=== PATIENT | female | born 1960 | race Caucasian/White ===

== ENCOUNTER 2018-02-28 14:37 | Outpatient (REF) | payer BC, SELFPAY ==
[2018-03-03 10:55] LABS: Hepatitis C Ab w Rflx HCV PCR Negative (NEGAT)
== END 2018-02-28 14:57 ==
LOC: NCHCN 14:37
PROVIDERS: Visit Provider Family Medicine
DX: Z11.59 Encounter for screening for other viral diseases (principal)
CPT/HCPCS: 86803

== ENCOUNTER 2018-06-02 12:45 | Outpatient (REF) | payer BC, SELFPAY ==
--- NOTE | 2018-06-02 08:30 | PAPFT_PTH ---
PATIENT: Linda Noble LOC: [facility] U#:[id number] AGE/SX: 58/F ROOM: RE06/02/[address]: ROBERTO Figueroa : 1960 BED: DIS: 06/02/2018 SPEC #: [id number] RECD: 06/02/18 13:07 STATUS: MARY REDaniele #: [id number] CHELSEA: 06/02/18 08:[address]: Malu Dias [facility] Cytology RECD BY: Malina Israel ENTERED: 06/02/18 13:07 SP TYPE: PAPFT OTHR DR: Myesha Barnett Tissues: 1 - CX/ENDOCX FOR PAP SMEARS Procedures: PAP THIN PREP/UVM Screening HPV DNA PROBE Comments: [id number]
== END 2018-06-02 13:05 ==
LOC: LBN 12:45
PROVIDERS: Visit Provider Nurse Practitioner Family
DX: Z12.4 Encounter for screening for malignant neoplasm of cervix (principal); Z11.51 Encounter for screening for human papillomavirus (HPV)
CPT/HCPCS: 88142; 87624

== ENCOUNTER 2018-06-09 00:38 | Outpatient (CLI) | payer BC, SELFPAY ==
--- NOTE | 2018-06-09 15:30 | DI.MAMMO_ITS ---
SYMPTOM/DIAGNOSIS: SCREENING, Z12.31 MAMMOGRAMS: Mammograms were interpreted according to the usual protocol including computer analysis with CAD system, tomosynthesis and C view imaging. Comparison is made with prior examinations. Breast density, Category B. No suspicious masses or microcalcifications are seen. Stable nodules are seen in the retroareolar region of the right breast. Skin and axilla are unremarkable. IMPRESSION: No evidence for malignancy. Yearly mammography is recommended. Category 1. MQSA ASSESSMENT OF FINDINGS: Negative. Category 1. Patient will receive a letter notifying them of these results. BI-RADS category B. There are scattered areas of fibroglandular density.
== END 2018-06-09 00:58 ==
PROVIDERS: Visit Provider Nurse Practitioner Family
DX: Z12.31 Encounter for screening mammogram for malignant neoplasm of breast (principal)
CPT/HCPCS: 77063; 77067

== ENCOUNTER 2019-05-11 09:05 | Outpatient (REF) | payer BC, SELFPAY ==
[2019-05-11 13:14] LABS: Hemoglobin A1C 7.3 % (3.8-5.6)
[2019-05-11 13:50] LABS: ALT 41 U/L (14-59); AST 19 U/L (15-37); Albumin 3.7 g/dL (3.4-5.0); Alkaline Phosphatase 91 U/L (46-116); Anion Gap 11.6 mmol/L (3-11); BUN 16 mg/dL (7-18); Bilirubin, Total 0.4 mg/dL (0.2-1.0); CO2 26.4 mmol/L (21.0-32.0); CREATININE 0.72 mg/dL (0.55-1.02); Calculated LDL 120 mg/dL; Chloride 105 mmol/L (98-107); Cholesterol 221 mg/dL (<200); Glucose 142 mg/dL (74-106); HDL Cholesterol 49 mg/dL (40-60); Potassium 4.6 mmol/L (3.5-5.1); Sodium 143 mmol/L (136-145); Total Protein 7.1 g/dL (6.4-8.2); Triglyceride 262 mg/dL (<150)
== END 2019-05-11 09:25 ==
LOC: NCHCN 09:05
PROVIDERS: Visit Provider Family Medicine
DX: Z00.00 Encounter for general adult medical examination without abnormal findings (principal); E11.9 Type 2 diabetes mellitus without complications; E78.5 Hyperlipidemia, unspecified
CPT/HCPCS: 80053; 80061; 83036

== ENCOUNTER 2019-06-10 08:41 | Outpatient (REF) | payer BC, SELFPAY ==
[2019-06-11 11:59] LABS: Campylobacter PCR Negative (Negative); Salmonella PCR Negative (Negative); Shiga Toxin PCR Negative (Negative); Shigella/Enteroinvasive Ecoli Negative (Negative)
== END 2019-06-10 09:01 ==
LOC: NCHCN 08:41
PROVIDERS: Visit Provider Specialist/Technologist Athletic Trainer
DX: K52.1 Toxic gastroenteritis and colitis (principal)
CPT/HCPCS: 87329; 87505; 83630; 87324

== ENCOUNTER 2019-11-27 15:00 | Outpatient (REF) | payer BC, SELFPAY ==
[2019-11-29 19:02] LABS: SARS-CoV-2 RNA Undetected (Undetected); SARS-CoV-2 Specimen Source Nasopharynx
== END 2019-11-27 15:20 ==
LOC: NCHCN 15:00
PROVIDERS: Visit Provider Nurse Practitioner Family
DX: Z11.59 Encounter for screening for other viral diseases (principal)
CPT/HCPCS: U0003

== ENCOUNTER 2020-03-14 01:29 | Outpatient (CLI) | payer BC, SELFPAY ==
--- NOTE | 2020-03-14 16:20 | DI.MAMMO_ITS ---
EXAM: MAMMO SCREENING CLINICAL HISTORY: screening TECHNIQUE: Mammograms were interpreted according to the usual protocol including computer analysis w [employer] CAD system, tomosynthesis and C-view imaging. COMPARISON: 2011 through 2018 FINDINGS: The breasts are composed of scattered fibroglandular densities, Breast Density category B. No suspicious masses or suspicious microcalcifications are seen. No skin thickening or abnormal axillary lymph nodes are seen. There has been no significant change from prior exams. IMPRESSION: BI-RADS Category 1, Negative mammogram Yearly screening mammography is recommended. Breast Density - Category B, scattered fibroglandular densities. A negative radiographic report should not delay biopsy if a dominant or clinically suspicious mass is present. Up to ten percent of cancers are not identified on mammography. A negative report may reinforce clinical impression. Adenosis and dense breasts may obscure an underlying neoplasm. False positive reports average 6 to 10%. Patient will receive a letter notifying them of these results.
== END 2020-03-14 01:49 ==
PROVIDERS: PCP Family Medicine; Visit Provider Nurse Practitioner Family
DX: Z12.31 Encounter for screening mammogram for malignant neoplasm of breast (principal)
CPT/HCPCS: 77063; 77067

== ENCOUNTER 2020-08-09 20:56 | Outpatient (REF) | payer BC, SELFPAY ==
[2020-08-09 20:46] LABS: Abs Immature Grans 0.05 10^3/uL (0.0-0.06); Absolute Basophil Count 0.08 10^3/uL (0.0-0.2); Absolute Eosinophil Count 0.37 10^3/uL (0.0-0.7); Absolute Lymphocyte Count 3.88 10^3/uL (1.2-3.4); Absolute Neutrophil Count 5.29 10^3/uL (1.2-6.7); Basophils % 0.8; Eosinophils % 3.6; Immature Grans % 0.5; Lymphocytes % 38.2; MCH 29.3 pg (27.0-33.0); MCHC 32.5 % (32.0-36.0); MCV 90.3 fL (80-95); Monocytes % 4.9; Nucleated RBC 0 %; Platelet Count 323 10^3/uL (130-400); RBC 4.43 10^6/uL (3.93-5.22); RDW 12.9 % (11.7-14.6); RDW-SD 42.4 fL; WBC 10.17 10^3/uL (4.4-10.8)
[2020-08-09 21:08] LABS: ALT 31 U/L (14-59); AST 17 U/L (15-37); Alkaline Phosphatase 82 U/L (46-116); Anion Gap 9.7 mmol/L (3-11); BUN 19 mg/dL (7-18); Bilirubin, Total 0.5 mg/dL (0.2-1.0); CO2 29.3 mmol/L (21.0-32.0); CREATININE 0.6 mg/dL (0.55-1.02); Calcium 9.7 mg/dL (8.5-10.1); Chloride 105 mmol/L (98-107); Glucose 119 mg/dL (74-106); Potassium 4.2 mmol/L (3.5-5.1); Sodium 144 mmol/L (136-145); Total Protein 7.5 g/dL (6.4-8.2)
== END 2020-08-09 20:57 | disposition home or self-care (01) ==
LOC: NCHCN 20:56
PROVIDERS: PCP Family Medicine; Visit Provider Family Medicine
DX: R21 Rash and other nonspecific skin eruption (principal)
CPT/HCPCS: 80053; 85025

== ENCOUNTER 2020-12-23 17:33 | Outpatient (REF) | payer BC, SELFPAY ==
[2020-12-23 14:56] LABS: HCT 38.3 % (36.0-46.0); HGB 12.4 g/dL (11.2-15.7); MCHC 32.4 % (32.0-36.0); MCV 92.7 fL (80-95); MPV 10.2 fL (8.0-11.0); Platelet Count 397 10^3/uL (130-400); RBC 4.13 10^6/uL (3.93-5.22); RDW 12.8 % (11.7-14.6); RDW-SD 43.6 fL; WBC 13.19 10^3/uL (4.4-10.8)
[2020-12-23 15:12] LABS: ALT 31 U/L (14-59); AST 17 U/L (15-37); Albumin 3.8 g/dL (3.4-5.0); Alkaline Phosphatase 87 U/L (46-116); Anion Gap 9.2 mmol/L (3-11); BUN 19 mg/dL (7-18); Bilirubin, Total 0.3 mg/dL (0.2-1.0); CO2 26.8 mmol/L (21.0-32.0); CREATININE 0.8 mg/dL (0.55-1.02); Chloride 106 mmol/L (98-107); Cholesterol 227 mg/dL (<200); Glucose 125 mg/dL (74-106); HDL Cholesterol 47 mg/dL (40-60); Potassium 4.9 mmol/L (3.5-5.1); Sodium 142 mmol/L (136-145); Total Protein 7.3 g/dL (6.4-8.2); Triglyceride 450 mg/dL (<150)
[2020-12-23 16:04] LABS: LDL CHOLESTEROL 119 mg/dL (<100)
[2020-12-23 16:42] LABS: Hemoglobin A1C 6.9 % (<5.7)
== END 2020-12-23 17:34 | disposition home or self-care (01) ==
LOC: NCHCN 17:33
PROVIDERS: PCP Family Medicine; Visit Provider Family Medicine
DX: E11.9 Type 2 diabetes mellitus without complications (principal); E78.5 Hyperlipidemia, unspecified
CPT/HCPCS: 80053; 80061; 83721; 85027; 83036

== ENCOUNTER 2021-02-09 01:30 | Outpatient (CLI) | payer BC, SELFPAY ==
--- NOTE | 2021-02-09 08:45 | DI.NM_ITS ---
APPROVED REPORT Exam: Exercise Treadmill Patient Location: Out-Patient Room/Bed: Stress Nurse: Ely Frank RN Ordering Provider:ANDREW DUSTIN, Contact Number: [phone] BMI: 34.95 Baseline Rhythm: Sinus Rhythm Indications: Angina Medical History Medical History: Asthma, diabetes, hyperlipidemia, obesity Cardiac Medications: Aspirin, metformin, levemir, ventalin, albuterol Allergies: Latex, sulfa antibiotics, seafood Cardiac Risk Factors: Asthma, diabetes, hyperlipidemia, obesity, family hx Previous Cardiac Procedures: None Pretest Chest Pain Characteristics: None Exercise History: Physically active Physical Disabilities: None Heart Sounds: Regular Stress Test Details Test: Exercise stress testing was performed using a Ghulam protocol. Nuclear Acquisition: Rest Tc-99m/Stress Tc-99m 1 day Rest Isotope: Tc-99m Sestamibi. Dose: 11.5 Date: 02/09/2021 Injection Time: 0905 Stress Isotope: Tc-99m Sestamibi. Dose: 36.0 Date: 02/09/2021 Injection Time: 1035 HR Resting HR Supine: 75 bpm Max Heart Rate (APMHR): 160.780275 bpm Resting HR Standin bpm Target HR (85% APMHR): 136.759594 bpm Max HR Achieved: 146 bpm % of APMHR: 91.25 Recovery HR: 83 bpm HR response to stress: Normal HR response to stress BP Resting BP Supine: 128/76 mmHg Resting BP Standin/70 mmHg Max BP: 206/66 mmHg Recovery BP: 144/76 mmHg BP response to stress: Abnormal hypertensive response to stress. ECG Resting ECG: Sinus Rhythm Ectopy: None Stress ECG: Sinus Tachycardia ST Change: No significant ST segment changes noted Arrhythmia: None Recovery ECG: Sinus Rhythm Recovery ST Change: No significant ST segment changes noted Recovery Arrhythmia: None Clinical Reason for Termination: Fatigue Stress Symptoms: General Fatigue, lightheaded, L shoulder pressure Exercise duration: 8 min10 sec Highest Stage Reached: Stage 3: 3.4 mph at 14% grade. Exercise capacity: 10.16 METs Jean Treadmill Score: 7.5 Rate Pressure Product: 14172 Stress ECG Conclusion 1. Resting electrocardiogram was within normal limits 2. She exercised on the Ghulam protocol and completed a workload of 10.16 METS 3. Normal heart rate response to exercise. The patient achieved 91% of predicted heart rate for age 4. Moderately hypertensive blood pressure response to exercise 5. There was no electrocardiographic evidence of myocardial ischemia Jean Treadmill Score is 7.5 which is Low risk. Stress Test Summary STAGE Time (mins) Speed (mph) Grade (%) HR BP SYMPTOMS METS Supine 75 128/76 Standing 75 128/70 1 3 1.7 10 107 138/90 4.6 2 6 2.5 12 125 144/90 7 3 9 3.4 14 145 10.2 1 min recovery 121 206/66 3 min recovery 90 178/80 6 min recovery 83 144/76 MPI Conclusion No evidence of ischemia or prior infarction EF 54% Radiologist Interpretation Radiologist Interpretation by: Abram Mcneil MD Interpretation Date/Time: 02/10/2021 15:27:36
== END 2021-02-09 01:50 ==
PROVIDERS: PCP Family Medicine; Visit Provider Family Medicine
DX: I20.9 Angina pectoris, unspecified (principal); J45.909 Unspecified asthma, uncomplicated; E11.9 Type 2 diabetes mellitus without complications; E78.5 Hyperlipidemia, unspecified; E66.9 Obesity, unspecified; Z68.34 Body mass index [BMI] 34.0-34.9, adult; Z82.49 Family history of ischemic heart disease and other diseases of the circulatory system
CPT/HCPCS: 78452; 93016; 93018; 93017

== ENCOUNTER 2021-07-06 16:19 | Outpatient (REF) | payer BC, SELFPAY ==
--- NOTE | 2021-07-06 15:00 | PAPFT_PTH ---
PATIENT: Linda Noble LOC: [facility] U#:[id number] AGE/SX: 61/F ROOM: RE07/06/[address]: ROBERTO Figueroa : 1960 BED: DIS: 07/06/2021 SPEC #: [id number] RECD: 07/06/21 17:23 STATUS: MARY REDaniele #: [id number] CHELSEA: 07/06/21 15:[address]: Malu Dias DEPT: [facility] Cytology RECD BY: Malina Israel ENTERED: 07/06/21 17:24 SP TYPE: PAPFT OTHR DR: Heydi Melgar Tissues: 1 - CX/ENDOCX FOR PAP SMEARS Procedures: PAP THIN PREP/UVM Screening HPV DNA PROBE Comments: [id number]
== END 2021-07-06 16:20 | disposition home or self-care (01) ==
LOC: LBN 16:19
PROVIDERS: PCP Family Medicine; Visit Provider Nurse Practitioner Family
DX: Z12.4 Encounter for screening for malignant neoplasm of cervix (principal); Z11.51 Encounter for screening for human papillomavirus (HPV)
CPT/HCPCS: 88142; 87624

== ENCOUNTER 2021-08-14 03:08 | Outpatient (CLI) | payer BC, SELFPAY ==
--- NOTE | 2021-08-14 12:54 | DI.MAMMO_ITS ---
Exam(s) MAMMO DIAGNOSTIC BI US BREAST LT LIMITED EXAM: MAMMO DIAGNOSTIC BI and U/S breast LT limited CLINICAL HISTORY: LT BREAST LUMP,N63.20. TECHNIQUE: Craniocaudal and mediolateral oblique Full Field Digital Mammography views with Computer Aided Diagnosis followed by Tomosynthesis and left breast ultrasound. COMPARISON: Priors available for comparison. FINDINGS: Mammography/Tomosynthesis: Masses/Architectural Distortion: None seen. Microcalcifictions: No suspicious pleomorphic-type are seen. Skin Thickening/Nipple Retraction: None. Limited left breast US: Echotexture: Normal appearance of the glandular tissue. Shadowing: No suspicious foci. Cyst: None. Solid lesions: None seen. Ductal dilation: None. IMPRESSION: 1. No evidence of malignancy is noted. 2. Unless there is more urgent need, follow-up screening mammography is recommended, as per [place] [employer] guidelines. 3. The findings were discussed with the patient on the date of the examination. BI-RADS Category 1 - Negative Breast Density - Category B - Scattered areas of fibroglandular density Breast density Category C or D implies that the patient has dense breast tissue. Dense breast tissue can make it harder to find cancer on a mammogram. Dense breast tissue is also associated with an incr eased risk of breast cancer. This information about the result of the mammogram report was provided to the patient to raise their awareness. Use this report when you speak with the patient about their risks for breast cancer, which includes their family history. At that time, you may recommend additional screening tests (Ultrasoun d or MRI) as these tests may add significant information. A negative radiographic report should not delay biopsy if a dominant or clinically suspicious mass is present. Up to ten percent of cancers are not identified on mammography. A negative report may reinforce clinical impression. Adenosis and dense breasts may obscure an underlying neoplasm. False positive reports average 6 to 10%. Patient will receive a letter notifying them of these results.
== END 2021-08-14 03:28 ==
PROVIDERS: PCP Family Medicine; Visit Provider Nurse Practitioner Family
DX: N63.24 Unspecified lump in the left breast, lower inner quadrant (principal)
CPT/HCPCS: 76642; 77062; 77066; G0279

== ENCOUNTER 2022-04-09 03:10 | Outpatient (CLI) | payer BC, SELFPAY ==
[2022-04-09 10:11] LABS: Absolute Basophil Count 0.09 10^3/uL (0.0-0.2); Absolute Eosinophil Count 0.35 10^3/uL (0.0-0.7); Absolute Lymphocyte Count 3.64 10^3/uL (1.2-3.4); Absolute Monocyte Count 0.93 10^3/uL (0.1-0.8); Absolute Neutrophil Count 5.38 10^3/uL (1.2-6.7); Basophils % 0.9; Eosinophils % 3.3; HGB 12.2 g/dL (11.2-15.7); Lymphocytes % 34.7; MCH 29.8 pg (27.0-33.0); MCV 90 fL (80-95); MPV 9.7 fL (8.0-11.0); Monocytes % 8.9; Neutrophils % 51.2; Platelet Count 319 10^3/uL (130-400); RDW 13.2 % (11.7-14.6); WBC 10.49 10^3/uL (4.4-10.8)
== END 2022-04-09 03:11 | disposition home or self-care (01) ==
LOC: LBO 03:11
PROVIDERS: PCP Family Medicine; Visit Provider Obstetrics & Gynecology
DX: Z01.818 Encounter for other preprocedural examination (principal)
CPT/HCPCS: 36415; 86850; 86900; 86901; 85025

== ENCOUNTER 2022-04-11 07:29 | Day surgery (SDC) | payer BC, SELFPAY ==
[2022-04-11 08:01] VITALS: BP 140/80; PULSE 79; RESP 14; TEMP 36.5; O2SAT 96
[2022-04-11] MEDS: Lactated Ringers 1,000 ML 125 ML IV (08:20)
--- NOTE | 2022-04-11 08:24 | W.ANESPRE ---
General Info Date of Service Date Performed: 04/11/22 Height: 5 ft 1 in Weight: 85.8 kg Body Mass Index (BMI): 35.7 Surgical Procedure: Operation Date: 04/11/22 08:55 Proposed Procedure Side Surgeon p Dilation & Curettage with Hysteroscopy Virginia Lawton DO Meds Allergies and Home Medications Allergies Allergy/AdvReac Type Severity Reaction Status Date / Time latex Allergy Severe Anaphylaxis Verified 04/11/22 07:49 Sulfa (Sulfonamide Allergy Intermediate Hives Verified 04/11/22 07:49 Antibiotics) seafood Allergy Severe breathing, Uncoded 04/11/22 07:49 swelling Home Medication Medication Instructions Recorded aspirin 81 mg tablet,delayed 81 mg PO DAILY 07/02/17 release (Aspir-) citalopram 20 mg tablet 20 mg PO DAILY 07/06/21 insulin glargine 100 unit/mL (3 22 unit subcut QPM 07/06/21 mL) subcutaneous pen (Lantus Solostar U-100 Insulin) metformin 1,000 mg tablet 500 mg PO DAILY 07/06/21 (Glucophage) multivitamin (Daily Multi-Vitamin 1 tab PO DAILY 07/06/21 tablet) albuterol 90 mcg/actuation aerosol mcg inhalation 04/11/22 inhaler albuterol sulfate 90 mcg/actuation 2 inhalation BID 04/11/22 aerosol inhaler (Ventolin HFA) ibuprofen 400 mg tablet 400 mg 04/11/22 Current Visit Medications: Current Medications Generic Name Dose Route Start Last Admin Trade Name Freq PRN Reason Stop Dose Admin Ringer's Solution 1,000 mls @ 125 mls/hr 04/11/22 06:00 IV 05/10/22 23:59 INFUSION JADA IV Miscellaneous Supplies 1 each 04/11/22 06:00 Iv Access IV 05/10/22 23:59 DIRECTED JADA Sodium Chloride 0 ml 04/11/22 06:00 Normal Saline Flush 10 Ml Syr IV 05/10/22 23:59 PRN PRN Sodium Chloride 0 ml 04/11/22 06:00 Normal Saline 10 Ml Vial IJ 05/10/22 23:59 DIRECTED PRN Sterile Water 0 ml 04/11/22 06:00 Water,Injection,Sterile 10 Ml Vial IJ 05/10/22 23:59 DIRECTED PRN PFSH Active Problems Active Problems: Problem Status Onset Code Lichen sclerosus 09/21/13 L90.0 Fibroid uterus 09/21/13 D25.9 Elevated lipids 09/21/13 E78.5 Diabetes 09/21/13 E11.9 Asthma 09/21/13 J45.909 Diverticulosis K57.90 Post-menopausal bleeding N95.0 Medical History Medical History (Updated 04/11/22 @ 07:59 by Brea Bess) Hx of chronic arthritis R knee, has had injections Numbness of face pt. saw neurologist this past saturday, questioning bone spur? going for MRI, no droop to face Surgical History Surgical History section Endometrial Ablation 2007 Hx of cholecystectomy Hx of colonoscopy Tobacco Smoking/Tobacco Use Status: Never Alcohol Alcohol Intake: never Substance Use Substance use: Never Substance use type: does not use Prental History History 3 Para 3 Hx # Term Pregnancies Multiple births Hx # Pregnancies Ectopic pregnancies AB induced Hx Number of Living Children AB spontaneous Vital Signs and Lab Results Vital Signs Most Recent Vital Signs in EMR: Most Recent Vital Signs Temp Pulse Resp BP Pulse Ox 36.5 C 79 14 140/80 96 04/11/22 08:01 04/11/22 08:01 04/11/22 08:01 04/11/22 08:01 04/11/22 08:01 Point of Care Results Point of Care Results: Finger Stick Blood Glucose 146 04/11/22 08:15 Lab Results Blood Type / Crossmatch: Patient ABO/Rh B Positive 04/09/22 Antibody Screen NEGATIVE 04/09/22 Complete Blood Count: White Blood Count 10.49 10^3/uL (4.4-10.8) 04/09/22 10:00 Red Blood Count 4.10 10^6/uL (3.93-5.22) 04/09/22 10:00 Hemoglobin 12.2 g/dL (11.2-15.7) 04/09/22 10:00 Hematocrit 37.0 % (36.0-46.0) 04/09/22 10:00 Platelet Count 319 10^3/uL (130-400) 04/09/22 10:00 Complete Metabolic Panel: No Data to Display Liver Function Panel: No Data to Display Coagulation Panel: No Data to Display Cardiac Panel: No Data to Display Arterial Blood Gas: No Data to Display Venous Blood Gas: No Data to Display Pancreas Panel: No Data to Display Thyroid Panel: No Data to Display Infectious Disease: No Data to Display Blood Cultures: No Data to Display Toxicology Panel: No Data to Display Imaging and Studies Imaging and Studies Study information below may be from another EMR and interpreted by another provider. Please see original notes in EMR for more complete details. Stress Test Summary: Stress ECG Conclusion 1. Resting electrocardiogram was within normal limits 2. She exercised on the Ghulam protocol and completed a workload of 10.16 METS 3. Normal heart rate response to exercise. The patient achieved 91% of predicted heart rate for age 4. Moderately hypertensive blood pressure response to exercise 5. There was no electrocardiographic evidence of myocardial ischemia Jean Treadmill Score is 7.5 which is Low risk. 02/09/21 Anesthesia Assessment and Plan Anesthesia History Personal History: No History of Anesthesia Complications Family History: No Family History of Anesthesia Complications Exercise Tolerance Exercise Tolerance: Metabolic Equivalents>4 Pertinent Negatives Pertinent Negatives: No Symptoms of GERD (Rare symptoms with certain foods, no symptoms today. ), No Major Cardiovascular Symptoms or Complaints, No Major Pulmonary Symptoms or Complaints and No History of CVA/TIA Cardiac & Pulmonary Exam Cardiac Exam: Normal S1/S2 Heart Sounds Pulmonary Exam: Clear Bilateral Breath Sounds Cardiac and Pulmonary Comment:: Inhaler use for seasonal allergies only. Used last week x 2 when Rossolini came in the house. Implantable Cardiac Device Does patient have a Pacemaker or an ICD?: No Airway Exam Known Difficult Airway: No Mallampati Class: 3 Mouth Opening: Normal (> 3cm) Thyromental Distance: Greater than 3 cm Neck Range of Motion: Limited ROM (Limited toward the left) Neck Circumference: Normal Teeth Condition: Normal Dentition ASA Classification ASA Score: ASA 3 Emergency Case?: No NPO Status NPO Status: NPO Clears >2 hours, Solids >8 hours Anesthesia Plan Resuscitation Status: Full Code Anesthesia Technique: General Anesthesia Airway Planned: Natural Airway Monitors Used: Standard Monitors Preoperative Comments:: Currently being worked up by Neurology for intermittent left facial numbness. No symptoms today. States that it does get better with chiropractic manipulation.
[2022-04-11 08:53] VITALS: BMI 35.7
--- NOTE | 2022-04-11 09:52 | ENDO_PTH ---
PATIENT: Linda Noble LOC: [place] U#:[id number] AGE/SX: 62/F ROOM: RE04/11/[address]: Virginia Lawton DO : 1960 BED: DIS: 04/11/2022 SPEC #: [id number] RECD: 04/11/22 12:50 STATUS: MARY REQ #: [id number] CHELSEA: 04/11/22 09:[address]: Virginia Lawton DEPT: Surgical Specimen RECD BY: Malina Israel ENTERED: 04/11/22 12:51 SP TYPE: Endo OTHR DR: Heydi Melgar Tissues: 1 - ENDOCERVICAL BX/CURRETTE 2 - ENDOMETRIUM BX/CURRETTE Procedures: GROSS AND MICRO LEVEL 4 Comments: [id number]
[2022-04-11 10:08] VITALS: BP 118/78; PULSE 70; RESP 16; TEMP 36; O2SAT 97
--- NOTE | 2022-04-11 10:08 | W.PM.OP ---
Date of service: 04/11/22 Time of Service: 10:08 Operative Note Operative Note DATE OF PROCEDURE: 04/11/22 PRE-OP DIAGNOSIS: Postmenopausal bleeding, thickened endometrium POST-OP DIAGNOSIS: same PROCEDURE: Hysteroscopy with dilation and curettage SURGEON: Virginia Lawton ANESTHESIA TYPE: General:No Airway Refer to Anesthesia Record ESTIMATED BLOOD LOSS: 10 PATHOLOGY: other (1. Endocervical curettage 2. Endometrial curettage) COMPLICATIONS: None Patient was transported to: same day Indications: Thickened endometrium, postmenopausal bleeding Findings: [place] endometrium, no intra uterine polyps, fibroids, or lesions noted Procedure Description: After full informed consent was obtained, patient was taken the operating suite with an IV running where she was placed in the dorsal supine position. Anesthesia administered. She was then placed in the modified dorsolithotomy position and prepped and draped in the usual sterile fashion. Exam under anesthesia revealed a uterus that was small, midline, mobile with grade 2 cystocele, grade 2 uterine prolapse, and very mild rectocele. After examination, speculum was inserted into the vaginal vault and a single-tooth tenaculum used to grasp the anterior lip of the cervix. Cervical os dilated to the point that a 5 mm hysteroscope could be passed with ease. With instillation of normal saline, the endometrial cavity was inspected and found to be regular, though somewhat plush. There is no evidence of polyp, fibroid, or other lesion noted. This completed the hysteroscope portion of the procedure. Camera was removed and a fractional curettage was performed with the endocervical portion being sampled first followed by the endometrial portion. At this point the tenaculum was removed and puncture sites were hemostatic. Speculum was removed from the vaginal vault and the patient returned to the dorsal supine position. She woke from anesthesia without difficulty. She was taken to the same-day surgical area in stable condition. Findings: Regular endometrial cavity that was slightly plush Complications: None apparent Pathology: 1. Endocervical curettage 2. Endometrial curettage Fluids: Crystalloid per anesthesia, uterine fluid deficit of 5 mL of normal saline
--- NOTE | 2022-04-11 10:10 | W.ANESPOSTOP ---
Postoperative Evaluation Date, Time and Location Date Performed: 04/11/22 Time Performed: 10:09 Patient Location: Day Surgery Unit Vital Signs Most Recent Imported Vital Signs: Most Recent Vital Signs Temp Pulse Resp BP Pulse Ox 36.5 C 79 14 140/80 96 04/11/22 08:01 04/11/22 08:01 04/11/22 08:01 04/11/22 08:01 04/11/22 08:01 Most Recent Manually Entered Vital Signs: Adult Blood Pressure: 118/78 Heart Rate: 70 Respirations: 12 Oxygen Saturation (%): 96 Temperature (C): 36.0 C Pain Score (0-10 Scale): 0 Pain Score Most Recent Pain Score: Most Recent Pain Score Pain Level 0 04/11/22 08:01 Assessment Mental Status: Awake (Alert & Oriented to Patient Baseline) Airway and Respiratory Function: Patent airway with normal (patient baseline) respiratory exam Cardiovascular Function: Hemodynamically Stable Hydration Status: Adequately Hydrated Nausea & Vomiting: No Nausea or Vomiting Pain: Pt. Denies Any Pain Peripheral Nerve Block: Patient did not receive a nerve block
[2022-04-11 10:12] VITALS: BP 118/78; PULSE 70; RESP 12; TEMPC 36; O2SAT 96
[2022-04-11 10:35] VITALS: BP 139/95; PULSE 64; RESP 16; TEMP 36; O2SAT 99
== END 2022-04-11 11:04 | disposition home or self-care (01) ==
PROVIDERS: PCP Family Medicine; Visit Provider Obstetrics & Gynecology
PROC: 0UDB8ZZ Extraction of Endometrium, Via Natural or Artificial Opening Endoscopic (ICD-10-PCS; CPT 58558; principal; 2022-04-11 08:45)
DX: N95.0 Postmenopausal bleeding (principal); L90.0 Lichen sclerosus et atrophicus; E11.9 Type 2 diabetes mellitus without complications; R93.89 Abnormal findings on diagnostic imaging of other specified body structures
CPT/HCPCS: 58558; 88305; J1100; J1885; J2250; J2405

== ENCOUNTER 2022-06-06 15:19 | Outpatient (CLI) | payer BC, SELFPAY ==
--- NOTE | 2022-06-06 14:45 | DI.RAD_ITS ---
Exam(s) XR KNEE RT 4V AP,LAT,JOSE,PAT EXAM: XR KNEE RT 4V AP,LAT,JOSE,PAT CLINICAL HISTORY: fall onto right anterior knee, M25.561. TECHNIQUE: 2D digital imaging was performed. Three views. COMPARISON: No exams were available for comparison FINDINGS: BONES: No acute fracture is present. No bony destructive lesion is seen. Enthesophyte at quadriceps i nsertion. JOINTS: Moderate narrowing of the medial femoral tibial joint space. Periarticular spur spurring is noted throughout. No joint effusion is seen. SOFT TISSUE: Normal. IMPRESSION: Degenerative changes, greatest of medial femoral tibial joint DATA REPOSITORY: RADIATION DOSE DELIVERED:
== END 2022-06-06 15:39 ==
LOC: DI 15:19
PROVIDERS: PCP Family Medicine; Visit Provider Physician Assistant
DX: M17.11 Unilateral primary osteoarthritis, right knee (principal)
CPT/HCPCS: 73564

== ENCOUNTER 2022-09-12 12:53 | Outpatient (REF) | payer BC, SELFPAY ==
[2022-09-12 16:26] LABS: HCT 39.4 % (36.0-46.0); HGB 13.2 g/dL (11.2-15.7); MCH 29.7 pg (27.0-33.0); MCHC 33.5 % (32.0-36.0); MCV 89 fL (80-95); MPV 10.2 fL (8.0-11.0); Platelet Count 362 10^3/uL (130-400); RBC 4.44 10^6/uL (3.93-5.22); RDW 12.9 % (11.7-14.6); RDW-SD 41.7 fL; WBC 11.79 10^3/uL (4.4-10.8)
[2022-09-12 16:45] LABS: ALT 40 U/L (14-59); AST 22 U/L (15-37); Albumin 4.2 g/dL (3.4-5.0); Alkaline Phosphatase 76 U/L (46-116); Anion Gap 10.8 mmol/L (3-11); BUN 12 mg/dL (7-18); Bilirubin, Total 0.6 mg/dL (0.2-1.0); CO2 26.2 mmol/L (21.0-32.0); CREATININE 0.8 mg/dL (0.55-1.02); Calcium 9.6 mg/dL (8.5-10.1); Chloride 104 mmol/L (98-107); Estimated GFR 83.26 (mL/min/1.73m2); Glucose 81 mg/dL (74-106); Potassium 3.7 mmol/L (3.5-5.1); Sodium 141 mmol/L (136-145); Total Protein 7.5 g/dL (6.4-8.2)
[2022-09-12 17:44] LABS: Hemoglobin A1C 6.5 % (<5.7)
== END 2022-09-12 12:54 | disposition home or self-care (01) ==
LOC: NCHCN 12:53
PROVIDERS: PCP Family Medicine; Visit Provider Family Medicine
DX: E11.9 Type 2 diabetes mellitus without complications (principal)
CPT/HCPCS: 80053; 85027; 83036

== ENCOUNTER 2022-11-20 02:47 | Outpatient (CLI) | payer BC, SELFPAY ==
--- NOTE | 2022-11-20 12:14 | DI.MAMMO_ITS ---
Exam(s) MAMMO SCREENING EXAM: MAMMO SCREENING CLINICAL HISTORY: screening TECHNIQUE: Mammograms were interpreted according to the usual protocol including computer analysis w [employer] CAD system, tomosynthesis and C-view imaging. COMPARISON: 2013 through 2021 FINDINGS: The breasts are composed of scattered fibroglandular densities, Breast Density category B. No suspicious masses or suspicious microcalcifications are seen. No skin thickening or abnormal axillary lymph nodes are seen. There has been no significant change from prior exams. IMPRESSION: BI-RADS Category 1, Negative mammogram Yearly screening mammography is recommended. Breast Density - Category B, scattered fibroglandular densities. A negative radiographic report should not delay biopsy if a dominant or clinically suspicious mass is present. Up to ten percent of cancers are not identified on mammography. A negative report may reinforce clinical impression. Adenosis and dense breasts may obscure an underlying neoplasm. False positive reports average 6 to 10%. Patient will receive a letter notifying them of these results.
== END 2022-11-20 03:07 ==
LOC: DI 02:49
PROVIDERS: PCP Family Medicine; Visit Provider Obstetrics & Gynecology
DX: Z12.31 Encounter for screening mammogram for malignant neoplasm of breast (principal)
CPT/HCPCS: 77063; 77067

== ENCOUNTER 2024-03-05 20:24 | Outpatient (REF) | payer OTHER, SELFPAY ==
[2024-03-05 15:12] LABS: HCT 37.9 % (36.0-46.0); HGB 12.5 g/dL (11.2-15.7); MCV 91 fL (80-95); MPV 10.3 fL (8.0-11.0); Platelet Count 359 10^3/uL (130-400); RBC 4.17 10^6/uL (3.93-5.22); RDW 12.8 % (11.7-14.6); RDW-SD 42.3 fL
[2024-03-05 15:55] LABS: ALT 23 U/L (14-59); AST 13 U/L (15-37); Albumin 3.6 g/dL (3.4-5.0); Alkaline Phosphatase 76 U/L (46-116); BUN 15 mg/dL (7-18); Bilirubin, Total 0.45 mg/dL (0.2-1.0); CREATININE 0.8 mg/dL (0.55-1.02); Calcium 9.1 mg/dL (8.5-10.1); Chloride 105 mmol/L (98-107); Cholesterol 218 mg/dL (<200); Estimated GFR 82.74 (mL/min/1.73m2); Glucose 137 mg/dL (74-106); HDL Cholesterol 48 mg/dL (40-60); Potassium 4.5 mmol/L (3.5-5.1); Sodium 143 mmol/L (136-145); Total Protein 7.2 g/dL (6.4-8.2); Triglyceride 453 mg/dL (<150)
[2024-03-05 16:26] LABS: LDL CHOLESTEROL 100 mg/dL (<100)
--- OUTSIDE RECORDS SUMMARY | 2024-03-05 20:30 | XMS_ITS | Continuity of Care Document ---
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 Name Role Phone REJI CHANA Primary Care Physician Encounter [facility] FIN NBR [id number] Date(s): 06/08/22 - 06/08/22 [facility] Ambulatory Clinics [address], [place] [address] Encounter Diagnosis Primary osteoarthritis of right knee(Discharge Diagnosis) - 06/08/22 Discharge Disposition: Home or Self Care Attending Physician: Hola Elizondo MD Allergies, Adverse Reactions, Alerts Substance Reaction Severity Status sulfa drugs Wheal Unknown Active sulfa topicals Wheal Unknown Active Seafood breathing, swelling Unknown Active Latex asthma attack Unknown Active Shell fish Wheal Unknown Active Assessment and Plan Future Appointments Functional Status 06/08/22 Other exposure to Infectious Disease Non e Medications [facility] [place] Prescription 100 EA, USE ONE PEN NEEDLE ONCE DAILY DIRECTED, 0 Refill(s) Start Date: 03/02/22 Status: Ordered Albuterol (Eqv-ProAir HFA) 90 mcg/inh inhalation aerosol 8 g, INHALE 2 PUFFS BY MOUTH EVERY 4 TO 6 HOURS NEEDED, 0 Refill(s) Start Date: 03/02/22 Status: Ordered atorvastatin 80 mg oral tablet 1 Unknown, 0 Refill(s) Start Date: 03/02/22 Status: Ordered citalopram 20 mg oral tablet 90 EA, TAKE ONE TABLET BY MOUTH AT BEDTIME, 0 Refill(s) Start Date: 03/02/22 Status: Ordered EpiPen 2-Juve 0 Refill(s) Start Date: 03/02/22 Status: Ordered Flovent HFA 110 mcg/inh inhalation aerosol 12 g, INHALE TWO PUFFS BY MOUTH TWICE A DAY NEEDED, 0 Refill(s) Start Date: 03/02/22 Status: Ordered fluticasone 50 mcg/inh nasal spray 1 Unknown, 0 Refill(s) Start Date: 03/02/22 Status: Ordered Freestyle InsuLinx Test Strips Supply, See instructions, # 1 EA, 0 Refill(s) Start Date: 03/02/22 Status: Ordered Freestyle InsuLinx Test Strips Supply, See instructions, # 1 EA, 0 Refill(s) Start Date: 03/02/22 Status: Ordered Lantus Solostar Pen 100 units/mL subcutaneous solution 15 mL, INJECT 20-40 UNITS UNDER THE SKIN ONCE DAILY, 0 Refill(s) Start Date: 03/02/22 Status: Ordered Levemir 100 units/mL subcutaneous solution 0 Refill(s) Start Date: 03/02/22 Status: Ordered Levemir FlexTouch 100 units/mL subcutaneous solution 0 Refill(s) Start Date: 03/02/22 Status: Ordered lisinopril 10 mg oral tablet 1 Unknown, 0 Refill(s) Start Date: 03/02/22 Status: Ordered MetFORMIN (Eqv-Glucophage XR) 500 mg oral tablet, extended release 360 EA, TAKE FOUR TABLETS BY MOUTH EVERY NIGHT, 0 Refill(s) Start Date: 03/02/22 Status: Ordered metFORMIN 500 mg oral tablet 360 EA, TAKE TWO TABLETS BY MOUTH TWICE A DAY, 0 Refill(s) Start Date: 03/02/22 Status: Ordered metFORMIN 500 mg oral tablet, extended release 1 Unknown, 0 Refill(s) Start Date: 03/02/22 Status: Ordered mometasone 0.1% topical cream 45 g, APPLY A SMALL AMOUNT TO THE AFFECTED AREA ONCE A DAY, 0 Refill(s) Start Date: 03/02/22 Status: Ordered omeprazole 1 Unknown, 0 Refill(s) Start Date: 03/02/22 Status: Ordered Paxlovid 150 mg-100 mg (300 mg-100 mg Dose) oral tablet 30 EA, TAKE THREE TABLETS BY MOUTH TWICE A DAY FOR 5 DAYS, 0 Refill(s) Start Date: 03/02/22 Status: Ordered triamcinolone 0.1% topical cream 80 g, APPLY A SMALL AMOUNT TO AFFECTED AREA TWICE A DAY, 0 Refill(s) Start Date: 03/02/22 Status: Ordered Xopenex HFA 45 mcg/inh inhalation aerosol 2 Unknown, 0 Refill(s) Start Date: 03/02/22 Status: Ordered Zofran 4 mg oral tablet 0 Refill(s) Start Date: 03/02/22 Status: Ordered Problem List Condition Confirmation Course Effective Dates Status H ealth Status Informant Diverticulosis of small intestine Confirmed Active Gastroesophageal reflux disease without esophagitis Confirmed Active Primary osteoarthritis of right knee Confirmed Active Procedures Procedure Date Related Diagnosis Body Site Status Echocardiography, , car diovascular system, real time with image documentation (2D), with or without M-mode recording; Completed Vital Signs Most recent to oldest [Reference Range]: 1 Blood Pressure [90-140/60-90 mmHg] 122/7 2mmHg (06/08/22 1:39 PM) Weight 83.91 kg (06/08/22 1:39 PM) Weight Measured (lbs) 184.99 lb (06/08/22 1:39 PM) Height 152.4 cm (06/08/22 1:39 PM) Height/Length Measured (inches) 60 inch (06/08/22 1:39 PM) BSA Measured 1.88 m2 (06/08/22 1:39 PM) Body Mass Index 36.13 kg/m2 (06/08/22 1:39 PM) Social History Social History Type Response Tobacco Never tobacco user T obacco Use:. Sex Physician Outpatient Note * Hola Elizondo MD: PERFORM Event Display: Office Clinic Note Physician Authored Date: [id number] IAIN MÉNDEZ :1960 Age:62 years Sex:Female Visit Date:06/08/2022 Primary Care Physician: ANDREW CHAN Chief Complaint 3 mth f/u: R knee History of Present Illness Patient returns today, she has known OA of the right knee??she had a steroid injection about a month ago and was doing actually much better but took a hard fall right to the anterior aspect of her knee,??she was seen in urgent care??and was told it was??a bad contusion??and she comes in today for an evaluation. ??She does say in the past few days the knee has improved??but she still getting some??pain mostly to the anterior aspect, she is also noted swelling which concerned her Physical Exam Vitals & Measurements BP:??122/72?? SpO2:??97%?? HT:??152.4??cm?? WT:??83.91??kg?? BMI:??36.13?? BSA:??1.88?? Review of studies: X-rays of the right knee are reviewed??and??are??significant only for medial compartment OA??there is no fracture dislocations. ?? Examination right knee today does show a small to moderate effusion, there is some retropatellartenderness, no instability,??full range of motion. Assessment/Plan 1.??Primary osteoarthritis of right knee??M17.11 Patient with OA this been exacerbated by fall,??I think we just some rest and ice??this is going to??reset??and patient will be back at her baseline,??I have told her if the pain does not improve??wecan try getting authorization for hyaluronic acid??and she is interested in??pursuing arthroplasty this summer which I think is a good plan. Problem List/Past Medical History Ongoing Diverticulosis of small intestine Gastroesophageal reflux disease without esophagitis Primary osteoarthritis of right knee Historical No qualifying data Procedure/Surgical History ???Echocardiography, , cardiovascular system, real time with image documentation (2D), with orwithout M-mode recording; Medications [facility] [place] Prescription Albuterol (Eqv-ProAir HFA) 90 mcg/inh inhalation aerosol atorvastatin 80 mg oral tablet citalopram 20 mg oral tablet EpiPen 2-Juve Flovent HFA 110 mcg/inh inhalation aerosol fluticasone 50 mcg/inh nasal spray Freestyle InsuLinx Test Strips, See instructions Freestyle InsuLinx Test Strips, See instructions Lantus Solostar Pen 100 units/mL subcutaneous solution Levemir 100 units/mL subcutaneous solution Levemir FlexTouch 100 units/mL subcutaneous solution lisinopril 10 mg oral tablet MetFORMIN (Eqv-Glucophage XR) 500 mg oral tablet, extended release metFORMIN 500 mg oral tablet metFORMIN 500 mg oral tablet, extended release mometasone 0.1% topical cream omeprazole Paxlovid 150 mg-100 mg (300 mg-100 mg Dose) oral tablet triamcinolone 0.1% topical cream Xopenex HFA 45 mcg/inh inhalation aerosol Zofran 4 mg oral tablet Allergies Latex??(asthma attack) Seafood??(breathing, swelling) Shell fish??(Wheal) sulfa drugs??(Wheal) sulfa topicals??(Wheal) Social History Electronic Cigarette/Vaping Electronic Cigarette Use: Never. Tobacco Never tobacco user Tobacco Use:. Electronically Signed on 06/08/22 01:57 PM Hola Elizondo MD Patient Care team information Care Team Personnel Name: ANDREW CHAN Position: No Access Member Role: Primary Care Physician Address: Address: [facility] [[email or web address]] [address] [place], [place] [address]
--- OUTSIDE RECORDS SUMMARY | 2024-03-05 20:30 | XMS_ITS | Continuity of Care Document ---
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 Name Role Phone ANDREW CHAN Primary Care Physician [phone] Encounter [facility] FIN NBR [id number] Date(s): 10/17/22 - 10/17/22 [facility] Ambulatory Clinics [address] [place], [place] [address] Encounter Diagnosis Status post right knee replacement(Discharge Diagnosis) - 10/17/22 Discharge Disposition: Home or Self Care Attending Physician: Melodie Kamara APRN Admitting Physician: Melodie Kamara APRN Allergies, Adverse Reactions, Alerts Substance Reaction Severity Status sulfa drugs Wheal Mild Active sulfa topicals Wheal Mild Active oxyCODONE Hives Moderate Active Seafood breathing, swelling Moderate Active Latex asthma attack Severe Active Shell fish Wheal Mild Active Assessment and Plan Future Appointments Functional Status 10/17/22 Other exposure to Infectious Disease Non e Medications citalopram 20 mg oral tablet 20 mg = 1 tab, Oral, every night at bedtime, 0 Refill(s) Start Date: 09/27/22 Status: Ordered Ecotrin 325 mg oral delayed release tablet 325 mg = 1 tab, Oral, BID, # 84 tab, 0 Refill(s), Pharmacy: [facility], 152.4, cm, 10/03/22 15:02:00 EDT, Height/Length Dosing, 83.01, kg, 10/03/22 15:02:00 EDT, Weight Dosing Start Date: 10/08/22 Stop Date: 11/19/22 Status: Ordered Flovent HFA 110 mcg/inh inhalation aerosol 2 puffs, Inhale, BID, # 12 g, 0 Refill(s) Start Date: 09/27/22 Status: Ordered ibuprofen 800 mg oral tablet 800 mg = 1 tab, Oral, TID, PRN as needed for pain, 0 Refill(s) Start Date: 09/27/22 Status: Ordered Januvia 100 mg oral tablet 100 mg 1 tab, Oral, Daily, 0 Refill(s) Start Date: 09/27/22 Status: Ordered Lantus Solostar Pen 100 units/mL subcutaneous solution 20 units =, Subcutaneous, Daily, INJECT 20-40 UNITS UNDER THE SKIN ONCE DAILY Start Date: 09/27/22 Status: Ordered metFORMIN 500 mg oral tablet 1,000 mg = 2 tab, Oral, BID, TAKE TWO TABLETS BY MOUTH TWICE A DAY Start Date: 09/27/22 Status: Ordered mometasone 0.1% topical cream PRN rash, APPLY A SMALL AMOUNT TO THE AFFECTED AREA ONCE A DAY Start Date: 09/27/22 Status: Ordered ProAir HFA 90 mcg/inh inhalation aerosol 2 puffs, Inhale, QID, PRN as needed for wheezing, 0 Refill(s) Start Date: 09/27/22 Status: Ordered traMADol 50 mg oral tablet See Instructions, PRN as needed for pain, 1-2 tab Oral every 6 hr prn pain, # 50 tab, 0 Refill(s), Pharmacy: [id number], 152.4, cm, 10/03/22 15:02:00 EDT, Height/Length Dosing, 83.01, kg, 10/03/22 15:02:00 EDT, Weight Dosing Start Date: 10/15/22 Status: Ordered triamcinolone 0.1% topical cream PRN rash, APPLY A SMALL AMOUNT TO AFFECTED AREA TWICE A DAY Start Date: 09/27/22 Status: Ordered Tylenol 8 HR Arthritis Pain 650 mg oral tablet, extended release 650 mg = 1 tab, Oral, every 8 hr, # 50 tab, 0 Refill(s), Pharmacy: [facility], 152.4, cm, 10/03/22 15:02:00 EDT, Height/Length Dosing, 83.01, kg, 10/03/22 15:02:00 EDT, Weight Dosing Start Date: 10/08/22 Status: Ordered Problem List Condition Confirmation Course Effective Dates Status H ealth Status Informant Asthma Confirmed Active Back pain Confirmed Active Diabetes mellitus Confirmed Active Diverticulosis of small intestine Confirmed Active Eczema Confirmed Active Facial nerve paralysis 1 Confirmed Active Gastroesophageal reflux disease without esophagitis Confirmed Active HLD - Hyperlipidemia Confirmed Active Migraine Confirmed Active Primary osteoarthritis of right knee Confirmed Active 1left Procedures Procedure Date Related Diagnosis Body Site Status Total Knee Arthroplasty (Right) 1 10/08/22 Completed section Complete d Cholecystectomy Completed Colonoscopy Completed Echocardiography, , car diovascular system, real time with image documentation (2D), with or without M-mode recording; Completed EGD - Esophagogastroduodenoscopy Completed Hysteroscopy Completed Ultrasound guided transcervi nia radiofrequency ablation of uterine fibroid Completed 1auto-populated from documented surgical case Vital Signs Most recent to oldest [Reference Range]: 1 Peripheral Pulse Rate [60-100 bpm] 85 bp m (10/17/22 10:00 AM) Blood Pressure [90-140/60-90 mmHg] 128/6 6mmHg (10/17/22 10:00 AM) Weight 83.01 kg (10/17/22 10:00 AM) Weight Measured (lbs) 183.006 lb (10/17/22 10:00 AM) Height 152.4 cm (10/17/22 10:00 AM) Height/Length Measured (inches) 60 inch (10/17/22 10:00 AM) BSA Measured 1.87 m2 (10/17/22 10:00 AM) Body Mass Index 35.74 kg/m2 (10/17/22 10:00 AM) Social History Social History Type Response Tobacco Never tobacco user T obacco Use:. Sex Implantable Device List Procedure Provider Procedure Date Device Type Site Total Knee Arthroplasty Orenadams Asad, 10/08/22 N on Biological Knee R Device Identifier Serial Number Lot or Batch Number Manufacturing Date Expiration Date Distinct Identification Code MRI Safety Implantable Status Assigning Authority Unknown Unknown [id number] Unknown 02/18/25 Unknown Unknown Active Unknown Unknown Unknown [id number] Unknown 04/06/32 Unknown Unknown Active Unknown Unknown Unknown [id number] Unknown 07/23/27 Unknown Unknown Active Unknown Unknown Unknown [id number] Unknown 05/11/32 Unknown Unknown Active Unknown Physician Outpatient Note * Melodie Kamara APRN: PERFORM Event Display: Office Clinic Note Physician Authored Date: [id number] IAIN MÉNDEZ :1960 Age:62 years Sex:Female Visit Date:10/17/2022 Primary Care Physician: ANDREW CHAN Chief Complaint RIGHT KNEE History of Present Illness Raina is here today for 1 week follow-up after??right total knee arthroplasty, she had not given us a call over the weekend about a rash on her trunk, I felt that it was likely due to the oxycodone, we discontinue that and started her on tramadol and she states things are improving and rash is resolving.?? She states the physical therapy, she is only had 2 visits, is going okay. ??She is working hard on getting the knee straight, she flex to 85 degrees the other day and physical therapy. ??She is taking Ecotrin 325 p.o. twice daily??for DVT prophylaxis she does have it wrapped with an Lambert bandage and Theresa stocking on today. ??She is utilizing a??walker, has been here with her. Physical Exam Vitals & Measurements HR:??85??(Peripheral)?? BP:??128/66?? SpO2:??95%?? HT:??152.4??cm?? WT:??83.01??kg?? BMI:??35.74?? Pain Score:??4?? BSA:??1.87?? Right knee: To inspection well approximated midline incision no redness no erythema, she is lackingfull extension by about 7 degrees flexion today is measured at 80 calf is soft there is no swellingdistally about the ankle she is able to dorsiflex plantarflex right ankle. Assessment/Plan 1.??Status post right knee replacement??Z96.651 Raina's incision looks great, her range of motion??is a little bit lacking, we discussed that she needs to work hard on getting the knee fully extended as well as flexion. ??I suggest that she take the tramadol 1 hour prior to PT she needs to work hard and push for range of motion. ??Support was given.?? I did rewrap her with an Lambert bandage for compression and she will do that for the next week she can discontinue THERESA stockings. ??Ecotrin will continue 325 p.o. twice daily??until follow-up in 1 month's time. ??We will see her back then with repeat x-rays. ??If she has any issues questions concerns in the meantime she is encouraged to call??otherwise again I did encourage her to really push hard with PT for increased range of motion as she is a little behind in that regard.?? Rash on her trunk is resolving. Problem List/Past Medical History Ongoing Asthma Back pain Diabetes mellitus Diverticulosis of small intestine Eczema Facial nerve paralysis Gastroesophageal reflux disease without esophagitis HLD - Hyperlipidemia Migraine Primary osteoarthritis of right knee Historical No qualifying data Medications citalopram 20 mg oral tablet, 20 mg= 1 tab, Oral, every night at bedtime Ecotrin 325 mg oral delayed release tablet, 325 mg= 1 tab, Oral, BID Flovent HFA 110 mcg/inh inhalation aerosol, 2 puffs, Inhale, BID ibuprofen 800 mg oral tablet, 800 mg= 1 tab, Oral, TID, PRN Januvia 100 mg oral tablet, 100 mg= 1 tab, Oral, Daily Lantus Solostar Pen 100 units/mL subcutaneous solution, 20 units, Subcutaneous, Daily metFORMIN 500 mg oral tablet, 1000 mg= 2 tab, Oral, BID mometasone 0.1% topical cream, PRN ProAir HFA 90 mcg/inh inhalation aerosol, 2 puffs, Inhale, QID, PRN traMADol 50 mg oral tablet, See Instructions, PRN triamcinolone 0.1% topical cream, PRN Tylenol 8 HR Arthritis Pain 650 mg oral tablet, extended release, 650 mg= 1 tab, Oral, every 8 hr Allergies Latex??(asthma attack) Seafood??(breathing, swelling) oxyCODONE??(Hives) Shell fish??(Wheal) sulfa drugs??(Wheal) sulfa topicals??(Wheal) Electronically Signed on 10/17/22 10:41 AM Melodie Kamara APRN Reviewed by: Binh Kamara DO Patient Care team information Care Team Personnel Name: ANDREW CHAN Position: No Access Member Role: Primary Care Physician Address: Address: [facility] [address] [place] [address]- Care Team Related Persons Name: TONI MÉNDEZ
--- OUTSIDE RECORDS SUMMARY | 2024-03-05 20:31 | XMS_ITS | Encounter Summary ---
Author Organization [facility] [place] [address] Care Team Providers Care Compliance Reviewer Name Role Phone Heydi Melgar MD Primary Care Provider [phone] Encounter Details Date Type Department Care Team (Late st Contact Info) Description 06/25/2022 2:00 PM EST [place] [address] Magnolia Ken MD [facility] [address] Neural foraminal stenosis of cervical spine; Left facial numbness Social History Tobacco Use Types Packs/Day Years Used Date Smoking Tobacco: Never Smokeless Tobacco: Never Alcohol Use Standard Drinks/Week Comments No 0 (1 standard drink = 0.6 oz pur e alcohol) Sex and Gender Information Value Date Recorded Sex Assigned at Not on file Gender Identity Not on file Sexual Orientation Not on file documented as of this encounter Last Filed Vital Signs Vital Sign Reading Time Taken Comments Blood Pressure 140/68 06/25/2022 1:57 PM EST Pulse 79 06/25/2022 1:57 PM EST Temperature - - Respiratory Rate - - Oxygen Saturation - - Inhaled Oxygen Concentration - - Weight 86.3 kg (190 lb 3.2 oz) 06/25/2022 1:57 P M EST Height 152.4 cm (5') 06/25/2022 1:57 PM EST Body Mass Index 37.15 06/25/2022 1:57 PM EST documented in this encounter Progress Notes * Magnolia Ken MD - 06/25/2022 2:00 PM EST [facility] Neurology Outpatient Clinic Note Patient name: Linda Noble Date of : 1960 Referring Provider: Heydi Melgar MD [address] [place] [address] Background: Linda Noble is a 62 y.o. woman with a history of migraines, diabetes type II, environmental allergies, asthma, anxiety, being seen in follow-up for left facial decreased sensation in all 3 trigeminal distributions. For full details of HPI please refer to note dated 04/09/2022. Interval history: The patient has been stable since her last visit. She returns clinic unaccompanied. She intermittently has numbness in the left face, and this tends to occur when she is feeling stressed. Compared to a year ago when she first started medication for anxiety, the symptoms have improved significantly. She recalls when she first started the medication there was an immediate effect on her anxiety levels and there was also an improvement in the numbness. There is no associated pain. When her symptoms first started she recalls having severe stress related to the delta variant. 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 She has been having counseling related to anxiety/stress and has donewell so far. She underwent an MRI of the brain to rule out trigeminal nucleus pathology or other findings related to the symptoms. She also underwent an MRI of the cervical spine because of neck pain and intermittent numbness/tingling of the hands. Past Medical History: Diagnosis Date ??? Allergic rhinitis ??? Asthma Family History Problem Relation Age of Onset ??? Asthma Mother ??? Allergic Rhinitis Mother ??? Food Allergy Neg Hx Social History Social History Narrative ??? Not on file Outpatient Encounter Medications as of 06/25/2022 Medication Sig Dispense Refill ??? ibuprofen (Advil) 800 mg Tablet Take 800 mg by mouth every 8 hours as needed. ??? BD Ultra-Fine Short Pen Needle 31 gauge x 5/16 Needle USE TO INJECT ONCE DIALY DIRECTED ??? Januvia 100 mg Tablet Take 100 mg by mouth daily. ??? aspirin EC 81 mg Tablet, Delayed Release (E.C.) Take 81 mg by mouth daily. ??? albuteroL 90 mcg/actuation HFA Aerosol Inhaler Inhale 2 puffs into the lungs every 4 hours as needed. EVERY 4 TO 6 HOURS NEEDED ??? insulin glargine (Lantus) 100 unit/mL (3 mL) pen 15 mL, INJECT 20-40 UNITS UNDER THE SKIN ONCE DAILY, 0 Refill(s) ??? citalopram (CeleXA) 20 mg Tablet Take 20 mg by mouth daily. ??? metFORMIN (GLUCOPHAGE) 500 mg tablet Take 1,000 mg by mouth daily. ??? atorvastatin (LIPITOR) 80 mg tablet Take 80 mg by mouth daily. ??? fluticasone (FLONASE) 50 mcg/actuation nasal spray 2 sprays by Each Nare route as needed. ??? fluticasone (FLOVENT) 110 mcg/actuation inhaler Inhale 2 puffs into the lungs 2 times daily. Twice daily prn ??? Levalbuterol Tartrate 45 mcg/actuation inhaler Inhale 1-2 puffs into the lungs every 6 hours asneeded. ??? triamcinolone (KENALOG) 0.1 % cream Apply topically as needed. ??? loratadine (CLARITIN) 10 mg tablet Take 10 mg by mouth daily. ??? [DISCONTINUED] diazePAM (Valium) 5 mg Tablet Take 1 tablet by mouth as needed (for MRI only). May repeat x1 for MRI (Patient not taking: Reported on 06/25/2022) 1 tablet 0 ??? glimepiride (AMARYL) 2 mg tablet Take 4 mg by mouth every morning (before breakfast). ??? [DISCONTINUED] epiNEPHrine (EPIPEN) 0.3 mg/0.3 mL (1:1,000) injection Inject 0.3 mLs into the muscle once as needed (difficulty breathing, throat swelling, loss of consciousness) for 1 dose. [id number]. (Patient not taking: Reported on 04/09/2022) 2 each 1 No facility-administered encounter medications on file as of 06/25/2022. Allergies Allergen Reactions ??? Latex Rash/hives breathing problems ??? Sulfa (Sulfonamide Antibiotics) Hives ??? House Dust Dust mites ??? Shellfish Derived Other reaction(s): breathing, swelling Objective: Vitals: Temp: -- Heart Rate: [79] Resp: -- BP: (140)/(68) SpO2: -- Heart Rate from SpO2: -- Constitutional: Patient of apparent stated age, well nourished, well developed, no acute distress Neck: Supple, no meningismus Resp: normal respiratory effort Ext: No edema. No bony deformity Neuro: Mental Status/Cognitive: Awake, alert, oriented x4, follows commands Speech: Fluent, appropriate, no dysarthria Cranial Nerves: CN II - Visual acuity and humphrey grossly intact, PERRL CN III, IV, - EOMI CN V - sensation intact in all 3 trigeminal distributions bilaterally CN VII - No facial asymmetry CN VIII - Hearing intact to voice CN IX, X - Palate symmetrically elevates, uvula midline CN XI - Trapezius, SCM 5/5 bilat CN XII - Tongue midline Motor: Normal bulk and tone. (-)Pronator drift BL UE: 5/5 R, 5/5 L Arm abduction at shoulder 5/5 R, 5/5 L Elbow extension 5/5 R, 5/5 L Elbow flexion 5/5 R, 5/5 L Wrist extension 5/5 R, 5/5 L Wrist flexion 5/5 R, 4/5 L Finger extension 5/5 R, 5/5 L Finger flexion 5/5 R, 5/5 L Motion Picture Operator LE: Moving bilateral lower extremities fully and equally Sensation: intact to light touch diffuselyy Gait: stable/steady Diagnostic Tests and Images: MRI Brain and cervical spine wwo contrast 06/12/2022: IMPRESSION 1. Normal brain. 2. No identifiable 5th cranial nerve lesion. 3. Asymmetric prominence of the frontal branch of the right superficial temporal artery, likely normal variant. 4. At most cervical spinal canal stenosis, greatest at C5-6. 5. Multilevel neural foraminal stenoses, bilaterally severe at C5-6. Heterogeneous, diffusely enlarged thyroid gland consistent with goiter. 1.2 cm isthmus nodule requiring no further evaluation. ?? The majority of incidental thyroid nodules (ITNs) are benign. ?? To avoid unnecessary evaluation the [employer] recommends the following for ITNs discovered on CTor MRI: ?? In patients less than 35 years of age with normal life expectancy, any ITN without suspicious features, 1cm or larger should undergo dedicated thyroid sonography. ?? In patients greater than 35 years of age with normal life expectancy, any ITN without suspicious features, 1.5 cm or larger should undergo dedicated thyroid sonography. ?? Reference: Francisco OLIVEIRA et al. Managing Incidental Thyroid Nodules Detected on Imaging: White Paper of the ACR Incidental Thyroid Findings Committee. J Am Charo Radiol 2015;12:143-150. . ?? Assessment/Recommendations Linda Noble is a 62 y.o. woman with a history of migraines, anxiety who is being seen in follow-up regarding intermittent numbness of the left face involving all 3 trigeminal nerve distributions. She underwent an MRI of the brain which was normal without trigeminal nerve pathology. We discussedfunctional neurologic symptoms, a diagnosis of exclusion. The patient herself believes that the symptoms may indeed be related to stress, and is comfortable with this possibility. She does have multilevel neural foraminal stenosis that is severe at bilateral C5-6. On exam, she has finger flexor weakness otherwise no other weakness or sensory loss. She sees a chiropractor periodically and asked whether to limit this. I recommended seeing physical therapy rather than a chiropractor in order to prevent nerve injuries, particularly related to neck manipulations. We discussed obtaining an EMG as a baseline study, and to determine whether the multilevel foraminal disease is causing a radiculopathy. She opted to hold off on this study, and will let us know if the symptoms are progressing. She will call to schedule this test if this is the case. Otherwise unless there are new symptoms the patient may follow-up with primary care and return to neurology as needed. Magnolia Ken MD Personal pager #[phone] 06/25/2022 22 minutes of the visit were spent [id number] with the patient obtaining history, performing exam, and in counseling. 12 minutes were spent on day of visit reviewing previous documentation, studies, and in documentation. documented in this encounter Plan of Treatment Not on file documented as of this encounter Visit Diagnoses Diagnosis Neural foraminal stenosis of cervical spine Spinal stenosis in cervical region Left facial numbness Disturbance of skin sensation documented in this encounter Care Teams Compliance Reviewer Relationship Specialty Start Date End Date Heydi Melgar MD [address] [place] [id number] PCP - General Family Medicine 04/09/22 documented as of this encounter
--- OUTSIDE RECORDS SUMMARY | 2024-03-05 20:31 | XMS_ITS | Continuity of Care Document ---
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 Name Role Phone REJI CHANA Primary Care Physician [phone] Encounter LTTL_IA FIN NBR [id number] Date(s): 10/08/22 - 10/08/22 [facility] [address] [place] [address]- Encounter Diagnosis Status post right knee replacement(Discharge Diagnosis) - 10/08/22 Unilateral primary osteoarthritis, right knee(Final) - Varus deformity, not elsewhere classified, right knee(Final) - Osteophyte, right knee(Final) - Type 2 diabetes mellitus without complications(Final) - 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) - Hyperlipidemia, unspecified(Final) - St's palsy(Final) - Gastro-esophageal reflux disease without esophagitis(Final) - Diverticulosis of small intestine without perforation or abscess without bleeding(Final) - Dorsalgia, unspecified(Final) - Other correction (current) drug therapy(Final) - Latex allergy status(Final) - Allergy status to sulfonamides(Final) - Discharge Disposition: Home f/u Internal Provider Attending Physician: Binh Kamara DO Admitting Physician: Binh Kamara DO Referring Physician: Binh Kamara DO Allergies, Adverse Reactions, Alerts Substance Reaction Severity Status sulfa drugs Wheal Mild Active sulfa topicals Wheal Mild Active Seafood breathing, swelling Moderate Active Latex asthma attack Severe Active Shell fish Wheal Mild Active Assessment and Plan Future Appointments Functional Status 10/08/22 Living Environment Home Environment No qualifying data available Lives In Single level home Lives With Spouse Living Situation Home independently Patient's Responsibilities Rehab Persona l ADL Number of Stairs Inside 0 Number of Stairs Outside 3 Outside Stairs Rail None Location Bed 1st floor Location Main Bathroom 1st floor Location Kitchen 1st floor Location Laundry 1st floor Prior ADL Status Independent Prior Mobility Status Independent Prior Instrumental ADL Level Independent Prior Cognitive-Communication Skills Ind ependent 10/08/22 Antiembolism Device Graduated compressio n stockings, knee high, left, Intermittent pneumatic compression devices, knee high, left Other exposure to Infectious Disease Non e Medications citalopram 20 mg oral tablet 20 mg = 1 tab, Oral, every night at bedtime, 0 Refill(s) Start Date: 09/27/22 Status: Ordered Ecotrin 325 mg oral delayed release tablet 325 mg = 1 tab, Oral, BID, # 84 tab, 0 Refill(s), Pharmacy: [facility], 152.4, cm, 10/03/22 15:02:00 EDT, Height/Length [...] A DAY Start Date: 09/27/22 Status: Ordered MiraLax oral powder for reconstitution 17 g, Oral, Daily, # 238 g, 0 Refill(s), Pharmacy: [facility], 152.4, cm, 10/03/22 15:02:00 EDT, Height/Length Dosing, 83.01, kg, 10/03/22 15:02:00 EDT, Weight Dosing Start Date: 10/08/22 Status: Ordered mometasone 0.1% topical cream PRN rash, APPLY A SMALL AMOUNT TO THE AFFECTED AREA ONCE A DAY Start Date: 09/27/22 Status: Ordered oxyCODONE 5 mg oral tablet See Instructions, PRN as needed for pain, 1-2 tab Oral every 4- 6 hr, # 50 tab, 0 Refill(s), Pharmacy: [facility], 152.4, cm, 10/03/22 15:02:00 EDT, Height/Length Dosing, 83.01, kg, 10/03/22 15:02:00 EDT, Weight Dosing Start Date: 10/08/22 Status: Ordered ProAir HFA 90 mcg/inh inhalation aerosol 2 puffs, Inhale, QID, PRN as needed for wheezing, 0 Refill(s) Start Date: 09/27/22 Status: Ordered triamcinolone 0.1% topical cream PRN rash, APPLY A SMALL AMOUNT TO AFFECTED AREA TWICE A DAY Start Date: 09/27/22 Status: Ordered Tylenol 8 HR Arthritis Pain 650 mg oral tablet, extended release 650 mg = 1 tab, Oral, every 8 hr, # 50 tab, 0 Refill(s), Pharmacy: [facility], 152.4, cm, 10/03/22 15:02:00 EDT, Height/Length [...] fibroid Completed 1auto-populated from documented surgical case Results Laboratory List Name Date Glucose POCT 10/08/22 Most recent to oldest [Reference Range]: 1 Glucose POC 164 *NA* (10/08/22 8:21 AM) Radiology Reports * Exam Date Time Procedure Performing Provider Status 10/08/22 11:46 AM XR Knee 3 Views Right Caprice Augustin; Maira (Verified) Notes: (XR Knee 3 Views Right) Reason For Exam: s/p right TKA XR Knee 3 Views Right EXAM DESCRIPTION: XR Knee 3 Views Right 10/08/2022 INDICATION: S/P RIGHT TKA COMPARISON: 06/06/2022 IMPRESSION: Status post right total knee arthroplasty with satisfactory postoperative appearance. Regional soft tissue and intra-articular air consistent with recent postoperative state. JOB #: [id number] Final Signed by: Sánchez Roque MD Signed (Electronic Signature): 10/08/2022 11:50 am Vital Signs Most recent to oldest [Reference Range]: 1 2 3 Temperature Temporal Artery [36-38 Deg C] 36.5 Deg C (10/08/22 3:05 PM) 36.6 Deg C (10/08/22 11:25 AM) 36.3 Deg C (10/08/22 7:58 AM) Temperature Temporal Artery (DegF) [97.3-100 Deg F] 97.7 Deg F (10/08/22 3:05 PM) 97.88 Deg F (10/08/22 11:25 AM) Peripheral Pulse Rate [60-100 bpm] 69 bpm (10/08/22 2:45 PM) 63 bpm (10/08/22 2:15 PM) 65 bpm (10/08/22 1:50 PM) Respiratory Rate [12-24 br/min] 16 br/min (10/08/22 7:58 AM) Blood Pressure [90-140/60-90 mmHg] 116/64mmHg (10/08/22 2:45 PM) 108/61mmHg (10/08/22 2:15 PM) 114/54mmHg (10/08/22 1:50 PM) Mean Arterial Pressure, Cuff [65-140 mmHg] 81 mmHg (10/08/22 2:45 PM) 77 mmHg (10/08/22 2:15 PM) 74 mmHg (10/08/22 1:50 PM) Mean Arterial Pressure Cuff 79 mmHg (10/08/22 2:45 PM) 76 mmHg (10/08/22 2:15 PM) 72 mmHg (10/08/22 1:50 PM) Weight 83.010 kg (10/03/22 2:29 PM) Weight Dosing 83.010 kg (10/03/22 2:29 PM) Weight Estimated 83.01 kg (10/03/22 2:29 PM) Height 152.400 cm (10/03/22 2:29 PM) Height/Length Dosing 152.400 cm (10/03/22 2:29 PM) Body Mass Index Estimated 35.74 kg/m2 (10/03/22 2:29 PM) Height/Length Estimated 152.40 cm (10/03/22 2:29 PM) Social History Social History Type Response Tobacco Never tobacco user T obacco Use:. Sex Implantable Device List Procedure Provider Procedure Date Device Type Site Total Knee Arthroplasty Binh Kamara, DO 10/08/22 N on Biological Knee R Device Identifier Serial Number Lot or Batch Number Manufacturing Date Expiration Date Distinct Identification Code MRI Safety Implantable Status Assigning Authority Unknown Unknown [id number] Unknown 02/18/25 Unknown Unknown Active Unknown Unknown Unknown [id number] Unknown 04/06/32 Unknown Unknown Active Unknown Unknown Unknown [id number] Unknown 07/23/27 Unknown Unknown Active Unknown Unknown Unknown [id number] Unknown 05/11/32 Unknown Unknown Active Unknown Hospital Discharge Instructions Patient Education 09/27/2022 06:58:25 Dannie Kamara - [facility] Post Operative Discharge Instructions (CUSTOM) [facility] Discharge Instructions Name: Linda Noble Surgery: Right knee replacement General Instructions: ??? Keep limb elevated as much as possible in the next 1-2 weeks in between PT / exercises. Foot must be 12 inches above heart for severe swelling. Do not sit with leg dangling below you for longer than a few minutes at a time-it exacerbates swelling! ??? Keep dressing clean and dry. ??? Apply ice to affected area 3-5 times daily for 20-30 minutes at a time. Dressing Instructions: ??? KNEE REPLACEMENTS: Physical therapy will remove your bandage at the first visit if you are an outpatient. If you stayed overnight, we removed your bandage. After dressing removal you may shower-do not submerge the wound in fluid! Do not pick at the wound. Do not apply lotions/creams/salves. EVERY MORNING- put on THERESA stocking-then jose ramon bandage from groin to top of THERESA stocking- ON EVERY MORNINGOFF EVERY NIGHT FOR FIRST 2 WEEKS. This is to help manage swelling! ??? SWELLING AND BRUISING IS EXPECTED! BRUISING MIGHT SHOW UP ALONG THE WHOLE LEG. Extensive bruising is common. The joint will feel warm because it is likely swollen. Discharge medications: Pain Medication (narcotic): oxycodone use sparingly, this should make pain tolerable not completely???pain free?? Pain medicine alters your balance/coordination-you should not drive or operate heavy machinery while taking pain medicine. Blood Clot Prevention: Ecotrin 325mg twice a day x 6 weeks Other Medications: Tylenol for pain over next few weeks, 650mg every 6-8 hours ALL narcotics WILL cause constipation! We suggest: Miralax Refills of pain medication: We require 24 hours notice for refills. In order to refill a medication before the weekend all requests must be in by at 12:00pm. All refill requests will be taken at [phone]. This is your responsibility to keep track of how much pain medication you have left. Activity: ??? Full Weight Bearing as tolerated with gentle movement of the extremity Therapy/Visiting Nurses: ??? Physical Therapy: this is usually already set up by the time you have surgery- if it has not been, please call to set up your therapy appointment within 1 day. If you are having issues getting this started please call our office for help Complications: If you experience the following call [phone]. Please try to call with questions during normal business hours. After hour calls should be for emergency use only. ??? Red streaking extending out away from wound ??? Drainage from wound- small amount of blood is ok, pus is not ??? Fever (101 or above), nausea, vomiting-- inability to drink fluids Follow up Care: POST OP APPOINTMENT Date/Time: 10/17/22 @ 10:15 [place] [facility] Melodie Kamara Return to Work/School: not until follow up Patient Signature Please keep this handy at home so that you may refer to it if you think of a question. 09/27/2022 06:57:08 Total Knee Replacement, Care After Total Knee Replacement, Care After This sheet gives you information about how to care for yourself after your procedure. Your health care provider may also give you more specific instructions. If you have problems or questions, contact your health care provider. What can I expect after the procedure? After the procedure, it is common to have: ??? Redness, pain, and swelling at the incision area. ??? Stiffness. ??? Discomfort. ??? A small amount of blood or clear fluid coming from your incision. Follow these instructions at home: Medicines ??? Take nbhp-sni-ajshndw and prescription medicines only as told by your health care provider. ??? If you were prescribed a blood thinner (anticoagulant), take it as told by your health care provider. ??? Ask your health care provider if the medicine prescribed to you: ??? Requires you to avoid driving or using machinery. ??? Can cause constipation. You may need to take these actions to prevent or treat constipation: ??? Drink enough fluid to keep your urine pale yellow. ??? Take fors-kln-uhduilr or prescription medicines. ??? Eat foods that are high in fiber, such as beans, whole grains, and fresh fruits and vegetables. ??? Limit foods that are high in fat and processed sugars, such as fried or sweet foods. Incision care ??? Follow instructions from your health care provider about how to take care of your incision. Make sure you: ??? Wash your hands with soap and water for at least 20 seconds before and after you change your bandage (dressing). If soap and water are not available, use hand casket assembler metal. ??? Change your dressing as told by your health care provider. ??? Leave stitches (sutures), ita, skin glue, or adhesive strips in place. These skin closures may need to stay in place for 2 weeks or longer. If adhesive strip edges start to loosen and curl up, you may trim the loose edges. Do not remove adhesive strips completely unless your health care provider tells you to do that. ??? Do not take baths, swim, or use a hot tub until your health care provider approves. ??? Check your incision area every day for signs of infection. Check for: ??? More redness, swelling, or pain. ??? More fluid or blood. ??? Warmth. ??? Pus or a bad smell. Activity ??? Rest as told by your health care provider. ??? Avoid sitting for a long time without moving. Get up to take short walks every 1???2 hours. This is important to improve blood flow and breathing. Ask for help if you feel weak or unsteady. ??? Follow instructions from your health care provider about using a walker, crutches, or a cane. ??? You may use your legs to support (bear) your body weight as told by your health care provider. Follow instructions about how much weight you may safely support on your affected leg (weight-bearing restrictions). ??? A physical therapist may show you how to get out of a bed and chair and how to go up and down stairs. You will first do this with a walker, crutches, or a cane and then without any of these devices. ??? Once you are able to walk without a limp, you may stop using a walker, crutches, or a cane. ??? Do exercises as told by your health care provider or physical therapist. ??? Avoid high-impact activities, including running, jumping rope, and doing jumping jacks. ??? Do not play contact sports until your health care provider approves. ??? Return to your normal activities as told by your health care provider. Ask your health care provider what activities are safe for you. Managing pain, stiffness, and swelling ??? If directed, put ice on your knee. To do this: ??? Put ice in a plastic bag or use the icing device (cold flow pad) that you were given. Follow instructions from your health care provider about how to use the icing device. ??? Place a towel between your skin and the bag or between your skin and the icing device. ??? Leave the ice on for 20 minutes, 2???3 times a day. ??? Remove the ice if your skin turns bright red. This is very important. If you cannot feel pain, heat, or cold, you have a greater risk of damage to the area. ??? Move your toes often to reduce stiffness and swelling. ??? Raise (elevate) your leg above the level of your heart while you are sitting or lying down. ??? Use several pillows to keep your leg straight. ??? Do not put a pillow just under the knee. If the knee is bent for a long time, this may lead to stiffness. ??? Wear elastic knee support as told by your health care provider. Safety ??? To help prevent falls, keep floors clear of objects you may trip over. Place items that you mayneed within easy reach. ??? Wear an apron or tool belt with pockets for carrying objects. This leaves your hands free to help with your balance. ??? Ask your health care provider when it is safe to drive. General instructions ??? Wear compression stockings as told by your health care provider. These stockings help to prevent blood clots and reduce swelling in your legs. ??? Continue with breathing exercises. This helps prevent lung infection. ??? Do not use any products that contain nicotine or tobacco. These products include cigarettes, chewing tobacco, and vaping devices, such as e-cigarettes. These can delay healing after surgery. If you need help quitting, ask your health care provider. ??? Tell your health care provider if you plan to have dental work. Also: ??? Tell your dentist about your joint replacement. ??? Ask your health care provider if there are any special instructions you need to follow before having dental care and routine cleanings. ??? Keep all follow-up visits. This is important. Contact a health care provider if: ??? You have a fever or chills. ??? You have a cough or feel short of breath. ??? Your medicine is not controlling your pain. ??? You have any of these signs of infection: ??? More redness, swelling, or pain around your incision. ??? More fluid or blood coming from your incision. ??? Warmth coming from your incision. ??? Pus or a bad smell coming from your incision. ??? You fall. Get help right away if: ??? You have severe pain. ??? You have trouble breathing. ??? You have chest pain. ??? You have redness, swelling, pain, or warmth in your calf or leg. ??? Your incision breaks open after sutures or ita are removed. These symptoms may represent a serious problem that is an emergency. Do not wait to see if the symptoms will go away. Get medical help right away. Call your local emergency services (911 in the [place] Do not drive yourself to the hospital. Summary ??? After the procedure, it is common to have pain and swelling at the incision area, a small amount of blood or fluid coming from your incision, and stiffness. ??? Follow instructions from your health care provider about how to take care of your incision. ??? Use crutches, a walker, or a cane as told by your health care provider. This information is not intended to replace advice given to you by your health care provider. Make sure you discuss any questions you have with your health care provider. Document Revised: 09/27/2020 Document Reviewed: 09/27/2020 [employer] Patient Education ?? 2021 [employer]. Discharge instructions * Paige Brothers: PERFORM Event Display: Discharge Instructions Authored Date: [id number] LINDA NOBLE :1960 Age:62 years Sex:Female Visit Date:10/08/2022 Primary Care Physician: ANDREW CHAN [facility] Discharge Instructions We would like to thank you for allowing us to assist you with your healthcare needs. The following includes patient education materials and information regarding your injury/illness. Your Next Steps Scheduled Future Appointments Saturday. 2022 10:15 AM EDT ?? Medications What How Much When Why Instructions Next Dose Unchanged acetaminophen (Tylenol 8 HR Arthritis Pain 650 mg oral tablet, extended release) 1 tab Oral (given by mouth) Every 8 hours Status post right knee replacement Pickup at [facility] Unchanged albuterol (ProAir HFA 90 mcg/ inh inhalation aerosol) 2 Puffs Inhale (breathe in) 4 times a day as needed for as needed for wheezing Unchanged aspirin (Ecotrin 325 mg oral delayed release tablet) 1 tab Oral (given by mouth) 2 times a day Status post right knee replacement Duration: 6 weeks Pickup at [facility] Unchanged citalopram (citalopram 20 mg oral tablet) 1 tab Oral (given by mouth) Every night at bedtime Unchanged fluticasone (Flovent HFA 110 mcg/ inh inhalation aerosol) 2 Puffs Inhale (breathe in) 2 times a day Unchanged ibuprofen (ibuprofen 800 mg oral tablet) 1 tab Oral (given by mouth) 3 times a day as needed for as needed for pain Unchanged insulin glargine (Lantus Solostar Pen 100 units/ mL subcutaneous solution) 20 Units Subcutaneous (under the skin) Every day INJECT 20-40 UNITS UNDER THE SKIN ONCE DAILY ?? Unchanged metFORMIN (metFORMIN 500 mg oral tablet) 2 tab Oral (given by mouth) 2 times a day TAKE TWO TABLETS BY MOUTH TWICE A DAY ?? Unchanged mometasone topical (mometasone 0.1% topical cream) As needed for rash APPLY A SMALL AMOUNT TO THE AFFECTED AREA ONCE A DAY ?? Unchanged oxyCODONE (oxyCODONE 5 mg oral tablet) See instructions Status post right knee replacement 1-2 tab Oral every 4- 6 hr, As needed for as needed for pain ?? Pickup at [facility] Unchanged polyethylene glycol 3350 (MiraLax oral powder for reconstitution) 17 Gram Oral (given by mouth) Every day Status post right knee replacement Pickup at [facility] Unchanged SITagliptin (Januvia 100 mg oral tablet) 1 tab Oral (given by mouth) Every day Unchanged triamcinolone topical (triamcinolone 0.1% topical cream) As needed for rash APPLY A SMALL AMOUNT TO AFFECTED AREA TWICE A DAY ?? Pharmacy Information [facility]: [address] [place] [address] [phone] Your Summary Your Care Team Admitting Physician - Binh Kamara, DO Attending Physician - Binh Kamara, DO Primary Care Physician - ANDREW CHAN Referring Physician - Binh Kamara, DO Your Diagnosis Status post right knee replacement Blood tests prior to treatment or procedure Encounter for screening for hematologic disorder Encounter for screening for metabolic disorder Encounter for screening for other infectious and parasitic diseases Osteoarthritis of right knee Problems Ongoing - Any problem that you are currently receiving treatment for. Asthma Back pain Diabetes mellitus Diverticulosis of small intestine Eczema Facial nerve paralysis Gastroesophageal reflux disease without esophagitis HLD - Hyperlipidemia Migraine Primary osteoarthritis of right knee Procedures Performed ???Total Knee Arthroplasty (Right) (10/08/2022)??? section???Cholecystectomy???Colonoscopy???EGD - Esophagogastroduodenoscopy???Hysteroscopy???Ultrasound guided transcervical radiofrequency ablation of uterine fibroid Tests Performed/Pending Glucose POCT XR Knee 3 Views Right Discharge Vitals Temperature??(Temporal Artery) 97.9 ??F (36.6 ??C) Heart Rate??(Peripheral) 72 Respiratory Rate?? 16 Blood Pressure?? 114/62?? Allergies Latex??(asthma attack) Seafood??(breathing, swelling) Shell fish??(Wheal) sulfa drugs??(Wheal) sulfa topicals??(Wheal) Devices Implanted/Removed This Visit Notice: You have devices implanted this visit that may not be MRI compatible. Implanted Total Knee Arthroplasty Knee R ???BONE CEMENT (2), 10/08/2022???PATELLA CEMENTED 26MM SAMPSON VIVACIT-E 10/08/2022???PSN FEM CRCMT CCR STD SZ6 R 10/08/2022???TIBIA CEMENTED 5 DEG RIGHT SZ E PERSONA 10/08/2022 Education Materials [facility] Discharge Instructions ? Name: Linda Noble Surgery: Right knee replacement ? General Instructions: ? Keep limb elevated as much as possible in the next 1-2 weeks in between PT / exercises. Foot must be 12 inches above heart for severe swelling. Do not sit with leg dangling below you for longer than a few minutes at a time-it exacerbates swelling! ? Keep dressing clean and dry. ? Apply ice to affected area 3-5 times daily for 20-30 minutes at a time. Dressing Instructions: ? KNEE REPLACEMENTS: Physical therapy will remove your bandage at the first visit if you are an outpatient. If you stayed overnight, we removed your bandage. After dressing removal you may shower-do not submerge the wound in fluid! Do not pick at the wound. Do not apply lotions/creams/salves. EVERY MORNING- put on THERESA stocking-then jose ramon bandage from groin to top of THERESA stocking- ON EVERY MORNING OFFEVERY NIGHT FOR FIRST 2 WEEKS. This is to help manage swelling! ? SWELLING AND BRUISING IS EXPECTED! BRUISING MIGHT SHOW UP ALONG THE WHOLE LEG. Extensive bruising is common. The joint will feel warm because it is likely swollen. Discharge medications: Pain Medication (narcotic): oxycodone use sparingly, this should make pain tolerable not completely???pain free?? Pain medicine alters your balance/coordination-you should not drive or operate heavy machinery while taking pain medicine. Blood Clot Prevention: Ecotrin 325mg twice a day x 6 weeks ? Other Medications: Tylenol for pain over next few weeks, 650mg every 6-8 hours ? ALL narcotics WILL cause constipation! We suggest: Miralax ? Refills of pain medication: We require 24 hours notice for refills. In order to refill a medication before the weekend all requests must be in by at 12:00pm. All refill requests will be taken at [phone]. This is your responsibility to keep track of how much pain medication you have left. ? Activity: ? Full Weight Bearing as tolerated with gentle movement of the extremity Therapy/Visiting Nurses: ? Physical Therapy: this is usually already set up by the time you have surgery- if it has not been, please call to set up your therapy appointment within 1 day. If you are having issues getting this started please call our office for help ? Complications: If you experience the following call [phone]. Please try to call with questions during normal business hours. After hour calls should be for emergency use only. ? Red streaking extending out away from wound ? Drainage from wound- small amount of blood is ok, pus is not ? Fever (101 or above), nausea, vomiting-- inability to drink fluids ? Follow up Care: ? POST OP APPOINTMENT Date/Time: 10/17/22 @ 10:15 [place] Office Melodie Kamara Return to Work/School: not until follow up ? Patient Signature ? Please keep this handy at home so that you may refer to it if you think of a question. Total Knee Replacement, Care After This sheet gives you information about how to care for yourself after your procedure. Your health care provider may also give you more specific instructions. If you have problems or questions, contact your health care provider. What can I expect after the procedure? After the procedure, it is common to have: ? Redness, pain, and swelling at the incision area. ? Stiffness. ? Discomfort. ? A small amount of blood or clear fluid coming from your incision. Follow these instructions at home: Medicines ? Take ffaf-osj-hpvjfpl and prescription medicines only as told by your health care provider. ? If you were prescribed a blood thinner (anticoagulant), take it as told by your health care provider. ? Ask your health care provider if the medicine prescribed to you: ? Requires you to avoid driving or using machinery. ? Can cause constipation. You may need to take these actions to prevent or treat constipation: ? Drink enough fluid to keep your urine pale yellow. ? Take hyjt-ika-fyavnvr or prescription medicines. ? Eat foods that are high in fiber, such as beans, whole grains, and fresh fruits and vegetables. ? Limit foods that are high in fat and processed sugars, such as fried or sweet foods. Incision care ? Follow instructions from your health care provider about how to take care of your incision. Make sure you: ? Wash your hands with soap and water for at least 20 seconds before and after you change your bandage (dressing). If soap and water are not available, use hand casket assembler metal. ? Change your dressing as told by your health care provider. ? Leave stitches (sutures), ita, skin glue, or adhesive strips in place. These skin closures may need to stay in place for 2 weeks or longer. If adhesive strip edges start to loosen and curl up, you may trim the loose edges. Do not remove adhesive strips completely unless your health care provider tells you to do that. ? Do not take baths, swim, or use a hot tub until your health care provider approves. ? Check your incision area every day for signs of infection. Check for: ? More redness, swelling, or pain. ? More fluid or blood. ? Warmth. ? Pus or a bad smell. Activity ? Rest as told by your health care provider. ? Avoid sitting for a long time without moving. Get up to take short walks every 1???2 hours. This isimportant to improve blood flow and breathing. Ask for help if you feel weak or unsteady. ? Follow instructions from your health care provider about using a walker, crutches, or a cane. ? You may use your legs to support (bear) your body weight as told by your health care provider. Follow instructions about how much weight you may safely support on your affected leg (weight-bearing restrictions). ? A physical therapist may show you how to get out of a bed and chair and how to go up and down stairs. You will first do this with a walker, crutches, or a cane and then without any of these devices. ? Once you are able to walk without a limp, you may stop using a walker, crutches, or a cane. ? Do exercises as told by your health care provider or physical therapist. ? Avoid high-impact activities, including running, jumping rope, and doing jumping jacks. ? Do not play contact sports until your health care provider approves. ? Return to your normal activities as told by your health care provider. Ask your health care provider what activities are safe for you. Managing pain, stiffness, and swelling ? If directed, put ice on your knee. To do this: ? Put ice in a plastic bag or use the icing device (cold flow pad) that you were given. Follow instructions from your health care provider about how to use the icing device. ? Place a towel between your skin and the bag or between your skin and the icing device. ? Leave the ice on for 20 minutes, 2???3 times a day. ? Remove the ice if your skin turns bright red. This is very important. If you cannot feel pain, heat, or cold, you have a greater risk of damage to the area. ? Move your toes often to reduce stiffness and swelling. ? Raise (elevate) your leg above the level of your heart while you are sitting or lying down. ? Use several pillows to keep your leg straight. ? Do not put a pillow just under the knee. If the knee is bent for a long time, this may lead to stiffness. ? Wear elastic knee support as told by your health care provider. Safety ? To help prevent falls, keep floors clear of objects you may trip over. Place items that you may need within easy reach. ? Wear an apron or tool belt with pockets for carrying objects. This leaves your hands free to help with your balance. ? Ask your health care provider when it is safe to drive. General instructions ? Wear compression stockings as told by your health care provider. These stockings help to prevent blood clots and reduce swelling in your legs. ? Continue with breathing exercises. This helps prevent lung infection. ? Do not use any products that contain nicotine or tobacco. These products include cigarettes, chewing tobacco, and vaping devices, such as e-cigarettes. These can delay healing after surgery. If you need help quitting, ask your health care provider. ? Tell your health care provider if you plan to have dental work. Also: ? Tell your dentist about your joint replacement. ? Ask your health care provider if there are any special instructions you need to follow before having dental care and routine cleanings. ? Keep all follow-up visits. This is important. Contact a health care provider if: ? You have a fever or chills. ? You have a cough or feel short of breath. ? Your medicine is not controlling your pain. ? You have any of these signs of infection: ? More redness, swelling, or pain around your incision. ? More fluid or blood coming from your incision. ? Warmth coming from your incision. ? Pus or a bad smell coming from your incision. ? You fall. Get help right away if: ? You have severe pain. ? You have trouble breathing. ? You have chest pain. ? You have redness, swelling, pain, or warmth in your calf or leg. ? Your incision breaks open after sutures or ita are removed. These symptoms may represent a serious problem that is an emergency. Do not wait to see if the symptoms will go away. Get medical help right away. Call your local emergency services (911 in the [place] Do not drive yourself to the hospital. Summary ? After the procedure, it is common to have pain and swelling at the incision area, a small amount ofblood or fluid coming from your incision, and stiffness. ? Follow instructions from your health care provider about how to take care of your incision. ? Use crutches, a walker, or a cane as told by your health care provider. This information is not intended to replace advice given to you by your health care provider. Make sure you discuss any questions you have with your health care provider. Document Revised: 09/27/2020 Document Reviewed: 09/27/2020 [employer] Patient Education ?? 2021 [employer] Patient Name:LINDA NOBLE I have received this information and my questions have been answered. Patient/Footwear Factory Worker Name: Patient/Footwear Factory Worker Signature: Relationship to Patient: Witness Name/Signature: Date: Electronically Signed on: 10/08/2022 13:26 EDTSigned by:ALS * Event Display: Discharge Instructions History and physical note * Event Display: History and Physical Update * Event Display: History and Physical XR Knee - right 3 Views * Sánchez Roque MD: VERIFY, VERIFY Event Display: Report EXAM DESCRIPTION: XR Knee 3 Views Right 10/08/2022 INDICATION: S/P RIGHT TKA COMPARISON: 06/06/2022 IMPRESSION: Status post right total knee arthroplasty with satisfactory postoperative appearance. Regional soft tissue and intra-articular air consistent with recent postoperative state. JOB #: [id number] Final Signed by: Sánchez Roque MD Signed (Electronic Signature): 10/08/2022 11:50 am Patient Care team information Care Team Personnel Name: ANDREW CHAN Position: No Access Member Role: Primary Care Physician Address: Address: [facility] [address] [place] [address]- Care Team Related Persons Name: TONI NOBLE
--- OUTSIDE RECORDS SUMMARY | 2024-03-05 20:31 | XMS_ITS | Encounter Summary ---
Author Organization [facility] Address [address] [place] [address] Care Team Providers Care Food Products Tester Name Role Phone Unavailable Primary Care Provider Unavailabl e Encounter Details Date Type Department Care Team (Late st Contact Info) Description 01/23/2002 Results Only [facility] - Maple conversion [address] [place] [address] Malu Dias, [facility] [address] [place] [address] Social History Tobacco Use Types Packs/Day Years Used Date Smoking Tobacco: Never Assessed Comments Unknown Sex and Gender Information Value Date Recorded Sex Assigned at Not on file Legal Sex Female 17:25 EST Gender Identity Not on file Sexual Orientation Not on file documented as of this encounter Plan of Treatment Not on file documented as of this encounter Procedures Procedure Name Priority Date/Time Associated Diagnosis Comments CYTOPATHOLOGY Routine 01/23/2002 0:00 EDT documented in this encounter Results * CYTOPATHOLOGY (01/23/2002 0:00 EDT) Pathology Report: CYTOPATHOLOGY REPORT Reports generated via electronic interface contain original data; however they are lacking the format of the original report. Caution should be taken when reading/interpreti ng unformatted reports. Name: ? LINDA NOBLE ? Accession #: ? [id number] : ? 1960 (Age: 41) ??F ?Collect Date: ? 01/23/2002 Location: ? [facility] ? Receive Date: ? 01/27/2002 Provider: ?MALU DIAS HAT MEASURER Copy to: ? Specimen/Source: ?ThinPrep Pap Test, Cervix/Endocervix Last Menstrual Period: ? 01/02/02 ? SPECIMEN ADEQUACY ? Satisfactory for Evaluation - transformation zone component present GENERAL CATEGORIZATION ? Negative for Intraepithelial Lesion or Malignancy ? Document reviewed and electronically signed by: ? FLORENTIN Hatch(ASCP) ? Report Date: ??01/30/2002 07:35 End of Report [facility] 01/23/2002 01/27/2002 Malu Dias HAT MEASURER PATHOLOGY ORDERABLES Final R esult [facility] [address] [place] [address] documented in this encounter Visit Diagnoses Not on filedocumented in this encounter
--- OUTSIDE RECORDS SUMMARY | 2024-03-05 20:31 | XMS_ITS | Encounter Summary ---
[place] [address] Care Team Providers Care Sales Representative Cash Registers Name Role Phone Heydi Melgar MD Primary Care Provider Encounter Details Date Type Department Care Team (Latest Contact Info) Description 06/25/2022 Travel Social History Tobacco Use Types Packs/Day Years [...] documented as of this encounter Visit Diagnoses Not on filedocumented in this encounter Care Teams Sales Representative Cash Registers Relationship Specialty Start Date End Date Heydi Melgar MD [address] [place] [address] PCP - General Family Medicine 04/09/22 documented as of this encounter
--- OUTSIDE RECORDS SUMMARY | 2024-03-05 20:31 | XMS_ITS | Clinical Summary ---
Author Organization [facility] Address [address] [place] [address] Care Team Providers Care Electronics Technology Instructor Name Role Phone Heydi Melgar MD Primary Care Provider Social History Tobacco Use Types Packs/Day Years Used Date Smoking Tobacco: Never Assessed Interpersonal Safety Answer Date Record ed Physically Hurt Never 11/24/2019 Verbally Threaten Not on file 11/24/2019 Comments Unknown Sex and Gender Information Value Date Recorded Sex Assigned at Not on file Legal Sex Female 17:25 EST Gender Identity Not on file Sexual Orientation Not on file Plan of Treatment Health Maintenance Due Date Last Done Comments Hepatitis C Screen 1960 COVID-19 Vaccine (2023-25 season) 2023 RSV Immunization ( o r 60+ Years) (1 - 1-dose 75+ series) 2035 Insurance [facility] Care Teams Electronics Technology Instructor Relationship Specialty Start Date End Date Heydi Melgar MD [address] [place] [address] PCP - General Family Medicine - Primary Care 03/22/22
--- OUTSIDE RECORDS SUMMARY | 2024-03-05 20:31 | XMS_ITS | Continuity of Care Document ---
Author Organization [facility] Amb[facility] Address [address] [place] [address] Care Team Providers Care Payloader Machine Operator Name Role Phone ANDREW CHAN Primary Care Physician Encounter [facility]BR [id number] Date(s): 08/16/22 - 08/16/22 [facility] Ambulatory Clinics [address], [place] [address] Encounter Diagnosis Osteoarthritis of right knee(Discharge Diagnosis) - 08/16/22 History of total knee arthroplasty(Discharge Diagnosis) - 08/16/22 Discharge Disposition: Home or Self Care Attending Physician: Binh Kamara DO Allergies, Adverse Reactions, Alerts Substance Reaction Severity Status sulfa drugs Wheal Unknown Active sulfa topicals Wheal Unknown Active Seafood breathing, swelling Unknown Active Latex asthma attack Unknown Active Shell fish Wheal Unknown Active Assessment and Plan Future Appointments Functional Status 08/16/22 Recent Travel History No recent travel Medications [facility] [place] EA, USE ONE PEN NEEDLE [...] Range]: 1 Peripheral Pulse Rate [60-100 bpm] 78 bp m (08/16/22 9:02 AM) Blood Pressure [90-140/60-90 mmHg] 120/6 8mmHg (08/16/22 9:02 AM) Weight 84.37 kg (08/16/22 9:02 AM) Weight Measured (lbs) 186.004 lb (08/16/22 9:02 AM) Height 152.40 cm (08/16/22 9:02 AM) Height/Length Measured (inches) 60 inch (08/16/22 9:02 AM) BSA Measured 1.89 m2 (08/16/22 9:02 AM) Body Mass Index 36.33 kg/m2 (08/16/22 9:02 AM) Social History Social History Type Response Tobacco Never tobacco user T obacco Use:. 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 She has been??treating right knee tricompartmental osteoarthritis??with Dr. Delong. ??She has had this diagnosis??for many years. ??She has treated it with nonsteroidals, Tylenol, intermittent injections??and activity modification.?? It has been progressive and insidious over the last several years.?? The last injection provided very minimal relief. ??She was referred to me??to??discuss??potential??right total knee.?? She??lives in the local area in [place] with her .?? She is a diabetic. ??Her last hemoglobin A1c was approximately 7.0??she states they are working on??getting th at lower. ??She states that the A1c has historically been lower than that. Review of Systems Constitutional:?No??fevers,?No??chills,?No??sweats Eye:?No??recent visual problems ENT:?No??ear pain,?No??nasal congestion,?No??sore throat Respiratory:?No??shortness of breath,?No??cough Cardiovascular:?No??Chest pain,?No??palpitations,?No??syncope Gastrointestinal:?Nonausea,?No??vomiting,?No??diarrhea Genitourinary:?No??hematuria Alexander/Lymph:?No??bruising tendency,?No??swollen lymph glands Endocrine:?No??excessive thirst,??No??excessive hunger Musculoskeletal:??No??back pain,??No??neck pain,??No??joint pain,??Positive for??muscle pain,??No??decreased range of motion Integumentary:?No??rash,?No??pruritus,?No??abrasions Neurologic: Alert & oriented X 4 Psychiatric:?No??anxiety,?No??depression Physical Exam Vitals & Measurements HR:??78??(Peripheral)?? BP:??120/68?? SpO2:??98%?? HT:??152.40??cm?? WT:??84.37??kg?? BMI:??36.33?? Pain Score:??6?? BSA:??1.89?? On physical exam ambulates in the office with a slight antalgic gait. ??Right knee with skin intactand without any signs of infection. ??She has varus alignment??that is reducible. ??She has full extension. ??She is point tender at the medial joint line. ??She flexes with palpable crepitus at the patellofemoral joint to approximately 125 degrees.?? Good ligamentous stability in all planes. ??Normal muscle tone neurovascular intact distally. ??X-rays reviewed??of the right knee on the [facility] demonstrating near complete collapse of the medial compartment??and wlps-is-tjeu changes. ??There are peripheral osteophytes present in all 3 compartments. Assessment/Plan 1.??Osteoarthritis of right knee??M17.11 Right knee tricompartmental osteoarthritis that is failed conservative therapy outlined above. ??Atthis point she is indicated for outpatient right total knee arthroplasty. ??We will request preoperative medical optimization visit with her primary care provider get her on the schedule at her convenience.?? We review her images??as well as models and perioperative protocols and reasonable expectations and risk stratification.?? Spent approximately 35 minutes together with 30 of those 35 minutesdirect [id number] counseling reviewing this information. Problem List/Past Medical History Ongoing Diverticulosis of small intestine Gastroesophageal reflux disease without esophagitis Primary osteoarthritis of right knee Historical No qualifying data Procedure/Surgical History ???Echocardiography, , cardiovascular system, real time with image documentation (2D), with orwithout M-mode recording; Medications AAA - Mis Prescription Albuterol (Eqv-ProAir HFA) 90 mcg/inh inhalation [...] tobacco user Tobacco Use:. Electronically Signed on 08/16/22 09:46 AM Binh Kamara, Patient Care team information Care Team Personnel Name: ANDREW CHAN Position: No Access Member Role: Primary Care Physician Address: Address: [facility] [address] [place] [address]- [place]
--- OUTSIDE RECORDS SUMMARY | 2024-03-05 20:31 | XMS_ITS | Encounter Summary ---
Author Organization [facility] Address [address] [place] [address] Care Team Providers Care Psychiatric Rn Name Role Phone Myesha Barnett MD Primary Care Provider Unavailabl e Encounter Details Date Type Department Care Team (Latest Contact Info) Description 08/01/2017 18:10 EDT - 08/01/2017 23:59 EDT Hospital Encounter [address] [address] Unknown, Provider, MD Discharge Disposition: Home or Self Care Social History Tobacco Use Types Packs/Day Years Used Date Smoking Tobacco: Never Assessed Comments Unknown Sex and Gender Information Value Date Recorded Sex Assigned at Not on file Legal Sex Female 17:25 EST Gender Identity Not on file Sexual Orientation Not on file documented as of this encounter Discharge Disposition Disposition Code Departure Means Destination Home or Self Shelter documented in this encounter Plan of Treatment Not on file documented as of this encounter Visit Diagnoses Not on filedocumented in this encounter Care Teams Psychiatric Rn Relationship Specialty Start Date End Date Myesha Barnett MD PCP - General 02/26/15 08/03/17 documented as of this encounter
--- OUTSIDE RECORDS SUMMARY | 2024-03-05 20:31 | XMS_ITS | Encounter Summary ---
Author Organization [facility] Address [address] [place] [address] Care Team Providers Care In Processing Instructor Name Role Phone Unavailable Primary Care Provider Unavailabl e Encounter Details Date Type Department Care Team (Late st Contact Info) Description 05/16/2007 Results Only [facility] [place] - Maple conversion [address] [place] [address] Malu Dias, [facility] [address] [place] [address] Social History Tobacco Use Types [...] Priority Date/Time Associated Diagnosis Comments CYTOPATHOLOGY Routine 05/16/2007 0:00 EST documented in this encounter Results * CYTOPATHOLOGY (05/16/2007 0:00 EST) Pathology Report: CYTOPATHOLOGY REPORT Reports generated via electronic interface contain original data; however they are lacking the format of the original report. Caution should be taken when reading/interpreti ng unformatted reports. Name: ? LINDA NOBLE ? Accession #: ? [id number] : ? 1960 (Age: 47) ??F ?Collect Date: ? 05/16/2007 Location: ? [facility] ? Receive Date: ? 05/19/2007 Provider: ?MALU DIAS POWER ELECTRONICS RESEARCH ENGINEER Copy to: ? Specimen/Source: ?ThinPrep Pap Test, Cervix/Endocervix, processed on [employer] ThinPrep Imaging System, with manual evaluation Last Menstrual Period: ? 04-29-07 Other: ? HPVA - HPV testing requested if ASC-US on the current ThinPrep Pap test. ? SPECIMEN ADEQUACY ? Satisfactory for Evaluation - transformation zone component present GENERAL CATEGORIZATION ? Negative for Intraepithelial Lesion or Malignancy ? Document reviewed and electronically signed by: ? Nolan Kidd, FLORENTIN(ASCP) ? Report Date: ??05/22/2007 13:59 End of Report [facility] 05/16/2007 05/19/2007 us Malu Dias POWER ELECTRONICS RESEARCH ENGINEER PATHOLOGY ORDERABLES Final R esult [facility] [address] [place] [address] documented in this encounter Visit Diagnoses Not on filedocumented in this encounter
--- OUTSIDE RECORDS SUMMARY | 2024-03-05 20:31 | XMS_ITS | Encounter Summary ---
Author Organization [facility] Address [facility] [place] [address] Care Team Providers Care Resident Physician Name Role Phone Myesha Barnett MD Primary Care Provider [phone] Reason for Visit * Reason Comments Allergic Reaction Encounter Details Date Type Department Care Team (Late st Contact Info) Description 07/04/2012 12:45 PM EDT [place] [address] Janina Styles MD [facility] [place] [address] Shellfish allergy (Primary Dx); Adverse food reaction; Asthma, mild intermittent, well-controlled; Allergic rhinoconjunctivitis; Environmental allergies Discharge Disposition: Home Social History Tobacco Use Types Packs/Day Years [...] Sign Reading Time Taken Comments Blood Pressure 120/64 07/04/2012 12:44 PM EDT Pulse 75 07/04/2012 12:44 PM EDT Temperature - - Respiratory Rate 20 07/04/2012 12:44 PM EDT Oxygen Saturation - - Inhaled Oxygen Concentration - - Weight 86.2 kg (190 lb) 07/04/2012 12:44 PM EDT Height 152.4 cm (5') 07/04/2012 12:44 PM EDT Body Mass Index 37.11 07/04/2012 12:44 PM EDT documented in this encounter Patient Instructions * Patient Instructions* Janina Styles MD - 07/04/2012 2:41 PM EDT Images from the original note were not included. ALLERGY SEASONS & AVOIDANCE: Dust mites: Year-round, especially Fall 1. Dust mite encasings, pillow and mattress ( ie From [employer]; [employer], [employer], [employer], [employer] [place], [employer]) 2. Wash bedding in hot water (no hotter than 120 degrees F) weekly 3. Humidity control, 30-50% 4. Minimize carpet and stuffed animal exposure Animals: Year-round 1. Minimize animal allergen exposure 2. Removal or -- regular baths/wiping of animal once per week -- exclusion from the bedroom -- HEPA filter in bedroom and living area -- Consider allergen pillow and mattress casings. Pollens: Trees: Early Spring; 1. Nightly hair washing during pollen seasons 2. Keep windows closed, consider window a/c unit with filter 3. Do not place fans in windows 4. Do not dry clothes outside. - Always have EpiPen available - Avoid all shellfish - Avoid peanut, tree nuts and vertebrae fish until workup is complete - Will check labs for serum IgE levels to tree nuts, peanut, shellfish and vertebrae fish - If blood tests are negative to tree nuts and peanuts, may consider supervised oral challenge to peanut and tree nuts on separate days Additional FAAN Resources: 1. Getting Started With Food Allergies: A Guide For The Newly Diagnosed 2. Just One Little Bite Can Hurt: Important Facts About Anaphylaxis documented in this encounter Progress Notes * Janina Styles MD - 07/04/2012 1:09 PM EDT Chief Complaint Patient presents with ??? Allergic Reaction HPI The patient is a pleasant 52 y.o. year old female whose consultation was requested by . The reason for consultation is evaluation and management of adverse reaction to peanut and shellfish. Adverse reaction to peanut Until one year ago, tolerated peanut butter. About one year ago, she ate peanut butter and about four hours later she developed wheezing, SOB and cough. No associated hives or angioedema. She took benadryl and albuterol. She fell asleep and felt better when she woke up four hours later. No ER evaluation. No EpiPen Prior to this reaction, she ate peanuts and developed hives within a couple of hours. She did not take any medications. Her reaction was self limited. She has a history of diarrhea with eating peanuts. She tolerates tree nuts, but has been avoiding them for the last year. Adverse reaction to shellfish She has a history of diarrhea and abdominal pain when eating scallops during the summer 2011. She had them in the past, without any reaction. She has a history of hives with ingestion of clam chowder in Dec 2011. She had clams in the past without any reactions. She took Benadryl and started to feel better. No associated angioedema or respiratory symptoms. She avoids all shellfish and vertebrae fish for the last six months. No ER visits. No epinephrine. Does not have EpiPen Tolerates wheat, dairy, egg and soy. Asthma - Diagnosed as a child. Triggers: latex, allergens On Flovent 110mcg 2 puffs BID when she has asthma attacks. She takes it while symptomatic. She takes the Flovent predominantly in August, Nov and the fall. Last time she used Xopenex in Mar with exposure to the Biolase tree. No nighttime awakenings. She last needed prednisone over ten years ago. No ER visits or hospitalizations for asthma. Gets annual flu shot. Up to date with Pneumovax. Seasonal allergies- Worse in the late spring, late summer and fall . Symptoms include: nasal congestion, rhinorrhea and itchy eyes. Well controlled with Flonase and Claritin which she takes when symptoms are exacerbated. She had allergy testing as a child with multiple reactions to pollens and cat. She has a cat that enters her bedroom. No woodstove or fireplace. Allergies, medications, past medical/ surgical history were reviewed and updated in eD. Allergies: Latex and Sulfa (sulfonamide antibiotics) Medications: Outpatient Prescriptions Marked as Taking for the 07/04/12 encounter (Office Visit) with Janina Styles MD Medication Sig Dispense Refill ??? metFORMIN (GLUCOPHAGE) 500 mg tablet Take 1,000 mg by mouth daily. ??? atorvastatin (LIPITOR) 80 mg tablet Take 80 mg by mouth daily. ??? glimepiride (AMARYL) 2 mg tablet Take 4 mg by mouth every morning (before breakfast). ??? triamcinolone (KENALOG) 0.1 % cream Apply topically 2 times daily. ??? DISCONTD: MOMETASONE FUROATE, BULK, MISC by Misc.(Non-Drug; Combo Route) route. Past Medical and Social History: Past Medical History Diagnosis Date ??? Asthma ??? Allergic rhinitis Past Surgical History Procedure Date ??? Cholecystectomy ??? section Family history: Family History Problem Relation Age of Onset ??? Asthma Mother ??? Allergic Rhinitis Mother ??? Food Allergy Neg Hx Social history: History Social History ??? Marital Status: Spouse Name: N/A Number of Children: N/A ??? Years of Education: N/A Social History Main Topics ??? Smoking status: Never Smoker ??? Smokeless tobacco: Never Used ??? Alcohol Use: No ??? Drug Use: No ??? Sexually Active: Other Topics Concern ??? None Social History Narrative ??? None Review of Systems (Recent problems if checked, all others negative): Review of Systems Constitution: Positive for malaise/fatigue. HENT: Postnasal drip sneezing Eyes: Itchy eyes Skin: Positive for itching. Musculoskeletal: Positive for joint pain. Gastrointestinal: Positive for diarrhea. All other systems reviewed and are negative. Physical Exam: Vital signs reviewed. Normal Except General: - No apparent distress Eyes: - Conjunctivae without injection; - No eyelid swelling ENT: - No erythema of the tympanic membranes - Normal external ear canals - Nl nasal mucosa, septum, and turbinates; - Oropharynx well hydrated without lesions or exudates; - Face & sinuses non-tender to palpation/percussion Neck: - Symmetrical, no masses, trachea midline; Resp: - Unlabored breathing with symmetrical and equal bilateral expansion; - CTA w/o wheezes, rales, or rhonchi; CV: - Regular rate and rhythm - No pedal swelling GI: - Abdomen soft - Bowel sounds present - No hepatosplenomegaly Lymph: - No significant cervical, supraclavicular or infraclavicular lymphadenopathy Musculoskeletal: - Nl gait and station Extremities: - No clubbing, cyanosis, or edema Skin: - No rashes Neuro: - Nl gait and station Psych: - Nl and age appropriate mood and affect - Judgement and insight intact TESTS/PROCEDURES 07-04-12 Skin tests # tests: 49 Interpretation: Appropriate histamine reaction. Positive reaction to shrimp, cat, dog, DF and DP mites, maple. Remainder of tests were negative. IMPRESSION/REPORT/PLAN # Adverse reaction to shellfish # Adverse reaction to peanut- adverse food reaction - I personally reviewed with patient her skin test results. Positive reaction shrimp. Negative tests to the tree nuts and peanuts. Also, reviewed with her latex food syndrome since she had questions about it. - Recommend continued avoidance of shellfish, tree nuts, vertebrae fish and peanuts - Will check serum IgE levels to shellfish, vertebrae fish, peanut and tree nuts. If tests are negative to tree nuts and peanuts, may consider oral challenge on separate days - EpiPen be administered if she develops dyspnea, throat swelling or loss of consciousness. If EpiPen is administered 911 should be called immediately. The risks, benefits, alternatives, storage methods, indications and administration technique of EpiPen were reviewed with the patient. She was ableto demonstrate understanding of the use of EpiPen. EpiPen Rx provided - FAAN information and Food allergy action plan provided # Allergic rhinoconjunctivitis - Reviewed skin test results with the patient. - Continue Flonase 2 sprays daily. The appropriate administration technique to minimize the risk ofseptal perforation and nose bleeds was reviewed. - Continue Claritin daily # Environmental allergies - Reviewed environmental control and avoidance measures # Asthma - Continue Flovent and albuterol - Continue to follow up with PCP for further management RTC in 1 year or sooner if allergies worsen in the interim. Outside records were reviewed. Written instructions were reviewed and provided to the patient. No learning barriers were identified. The patient understood and agreed with what was discussed. All questions were answered. documented in this encounter Plan of Treatment Not on file documented as of this encounter Procedures Procedure Name Priority Date/Time Associated Diagnosis Comments PINE NUT, IGE Routine 07/04/2012 3:25 PM EDT Adverse food reaction IMMUNOGLOBULIN E (IGE) Routine 3 3:25 PM EDT Shellfish allergy Adverse food reaction YEE, IGE Routine 07/04/2012 3:25 PM EDT Shellfish allergy PISTACHIO IGE Routine 07/04/2012 3:25 PM EDT Adverse food reaction LOBSTER IGE Routine 07/04/2012 3:25 PM EDT Shellfish allergy TUNA IGE Routine 07/04/2012 3:25 PM EDT Shellfish allergy ALMOND IGE Routine 07/04/2012 3:25 PM EDT Adverse food reaction CLAMS IGE Routine 07/04/2012 3:25 PM EDT Shellfish allergy SHRIMP IGE Routine 07/04/2012 3:25 PM EDT Shellfish allergy HAZELNUT IGE Routine 07/04/2012 3:25 PM EDT Adverse food reaction CASHEW IGE Routine 07/04/2012 3:25 PM EDT Adverse food reaction WALNUT IGE Routine 07/04/2012 3:25 PM EDT Adverse food reaction CODFISH IGE Routine 07/04/2012 3:25 PM EDT Shellfish allergy PEANUT IGE Routine 07/04/2012 3:25 PM EDT Adverse food reaction SCALLOP IGE Routine 07/04/2012 3:25 PM EDT Shellfish allergy BRAZIL NUT IGE Routine 07/04/2012 3:25 PM EDT Adverse food reaction OYSTER IGE Routine 07/04/2012 3:25 PM EDT Shellfish allergy PECAN IGE Routine 07/04/2012 3:25 PM EDT Adverse food reaction CRAB IGE Routine 07/04/2012 3:25 PM EDT Shellfish allergy MACADAMIA NUT IGE Routine 07/04/2012 3:2 5 PM EDT Adverse food reaction HALIBUT IGE Routine 07/04/2012 3:25 PM EDT Shellfish allergy documented in this encounter Results * Immunoglobulin E (IgE) (07/04/2012 3:25 PM EDT) [facility] IgE, Total 61.4 kU/L [facility] Comment: -- REFERENCE VALUE -- Mean ??13.2 +1SD ??41.0 +2SD 127.0 Test Performed by: [place] [address] Material Mover: Jordan Velazquez III, M.D. Blood specimen (specimen) 07/04/2012 3:25 PM EDT 07/04/2012 3:52 PM EDT Narrative Resulting Agency Comment Spec In Lab Janina Styles MD IMMUNOLOGY ORDERABLE S [facility] * Barrett IgE (07/04/2012 3:25 PM EDT) [facility] Barrett, IgE <0.35 kU/L [facility] Comment: Class 0 (Negative <0.35) Test Performed by: [place] [address] Material Mover: Jordan Velazquez III, M.D. Blood specimen (specimen) 07/04/2012 3:25 PM EDT 07/04/2012 3:47 PM EDT Narrative Resulting Agency Comment Spec In Lab Janina Styles MD IMMUNOLOGY ORDERABLE S Performing Organization Address City/[facility]/ZIP Co de Phone Number CERNER MILLENNIUM * Pistachio IgE (07/04/2012 3:25 PM EDT) Pathologist [facility] [place] Pistachio, IgE <0.35 kU/L CERNE R MILLENNIUM Comment: Class 0 (Negative <0.35) Test Performed by: [place] [address] Material Mover: Jordan Velazquez III, M.D. Blood specimen (specimen) 07/04/2012 3:25 PM EDT 07/04/2012 3:47 PM EDT Narrative Resulting Agency Comment Spec In Lab Jainna Styles MD IMMUNOLOGY ORDERABLE S Performing Organization Address [facility] de Phone Number CERNER MILLENNIUM * [place] Nut, IgE (07/04/2012 3:25 PM EDT) [facility] [place] Nut, IgE <0.35 kU/L CERNER MILLENNIUM Comment: Class 0 (Negative <0.35) Analyte Specific Reagent: This test was developed and its performance characteristics determined by [facility]. It has not been cleared or approved by the U.S. Food and Drug Administration. Test Performed by: [place] [address] Material Mover: Jordan Velazquez III, M.D. Blood specimen (specimen) 07/04/2012 3:25 PM EDT 07/04/2012 3:47 PM EDT Narrative Resulting Agency Comment Spec In Lab Janina Styles MD IMMUNOLOGY ORDERABLE S Performing Organization Address City/[facility]/ZIP Co de Phone Number CERVICTOR HUGO PHILLIPSENNIUM * Pecan IgE (07/04/2012 3:25 PM EDT) Pathologist [facility] [place] Pecan-nut, IgE <0.35 kU/L CERNE R MILLENNIUM Comment: Class 0 (Negative <0.35) Test Performed by: [place] [address] Material Mover: Jordan Velazquez III, M.D. Blood specimen (specimen) 07/04/2012 3:25 PM EDT 07/04/2012 3:47 PM EDT Narrative Resulting Agency Comment Spec In Lab Janina Styles MD IMMUNOLOGY ORDERABLE S CERNER MILLENNIUM * Peanut IgE (07/04/2012 3:25 PM EDT) Peanut, IgE <0.35 kU/L CERNER MILLENNIUM Comment: Class 0 (Negative <0.35) Test Performed by: [place] [address] Material Mover: Jordan Velazquez III, M.D. Blood specimen (specimen) 07/04/2012 3:25 PM EDT 07/04/2012 3:47 PM EDT Narrative Resulting Agency Comment Spec In Lab Janina Styles MD IMMUNOLOGY ORDERABLE S Performing Organization Address City/[facility]/ZIP Co de Phone Number CERNER MILLENNIUM * Macadamia Nut IgE (07/04/2012 3:25 PM EDT) Macadamia Nut, IgE <0.10 <0.35 kU/L CERNER MILLENNIUM Comment: Test Performed by: [email or web address] [address] [place] [address] Macadam Flag IgE 0 CER NER MILLENNIUM Comment: This test was developed and its performance characteristics determined by the [employer]. It has not been cleared or approved by the FDA. Test Performed by: [employer] [address] [place] [address] Blood specimen (specimen) 07/04/2012 3:25 PM EDT 07/04/2012 3:47 PM EDT Narrative Resulting Agency Comment Spec In Lab Janina Styles MD IMMUNOLOGY ORDERABLE S CERNER MILLENNIUM * Hazelnut IgE (07/04/2012 3:25 PM EDT) Hazelnut, IgE <0.35 kU/L CERNER MILLENNIUM Comment: Class 0 (Negative <0.35) Test Performed by: [place] [address] Material Mover: Jordan Velazquez III, M.D. Blood specimen (specimen) 07/04/2012 3:25 PM EDT 07/04/2012 3:47 PM EDT Narrative Resulting Agency Comment Spec In Lab Janina Styles MD IMMUNOLOGY ORDERABLE S Performing Organization Address City/[facility]/ZIP Co de Phone Number [facility] * [place]hew IgE (07/04/2012 3:25 PM EDT) [place]hew, IgE <0.35 kU/L CERNER MILLENNIUM Comment: Class 0 (Negative <0.35) Test Performed by: [place] [address] Material Mover: Jordan Velazquez III, M.D. Blood specimen (specimen) 07/04/2012 3:25 PM EDT 07/04/2012 3:47 PM EDT Narrative Resulting Agency Comment Spec In Lab Janina Styles MD IMMUNOLOGY ORDERABLE S [facility] * [place] nut IgE (07/04/2012 3:25 PM EDT) [place] Nut, IgE <0.35 kU/L CERN ER MILLENNIUM Comment: Class 0 (Negative <0.35) Test Performed by: [place] [address] Material Mover: Jordan Velazquez III, M.D. Blood specimen (specimen) 07/04/2012 3:25 PM EDT 07/04/2012 3:47 PM EDT Narrative Resulting Agency Comment Spec In Lab Janina Styles MD IMMUNOLOGY ORDERABLE S Performing Organization Address City/[facility]/ZIP Co de Phone Number CERNER MILLENNIUM * [place] IgE (07/04/2012 3:25 PM EDT) [place], IgE <0.35 kU/L CERNER MILLENNIUM Comment: Class 0 (Negative <0.35) Test Performed by: [place] [address] Material Mover: Jordan Velazquez III, M.D. Blood specimen (specimen) 07/04/2012 3:25 PM EDT 07/04/2012 3:47 PM EDT Narrative Resulting Agency Comment Spec In Lab Janina Styles MD IMMUNOLOGY ORDERABLE S Performing Organization Address [facility] de Phone Number CERNER ALANENNIUM * Tuna IgE (07/04/2012 3:25 PM EDT) Tuna, IgE <0.35 kU/L CERNER MILLENNIUM Comment: Class 0 (Negative <0.35) Test Performed by: [place] [address] Material Mover: Jordan Velazquez III, M.D. Blood specimen (specimen) 07/04/2012 3:25 PM EDT 07/04/2012 3:47 PM EDT Narrative Resulting Agency Comment Spec In Lab Janina Styles MD IMMUNOLOGY ORDERABLE S Performing Organization Address [facility] de Phone Number CERNER MILLENNIUM * Halibut IgE (07/04/2012 3:25 PM EDT) Halibut, IgE <0.35 kU/L CERNER MILLENNIUM Comment: Class 0 (Negative <0.35) Analyte Specific Reagent: This test was developed and its performance characteristics determined by [facility]. It has not been cleared or approved by the U.S. Food and Drug Administration. Test Performed by: [place] [address] Material Mover: Jordan Velazquez III, M.D. Blood specimen (specimen) 07/04/2012 3:25 PM EDT 07/04/2012 3:47 PM EDT Narrative Resulting Agency Comment Spec In Lab Janina Styles MD IMMUNOLOGY ORDERABLE S Performing Organization Address City/[facility]/ZIP Co de Phone Number CERNER MILLENNIUM * Yee, IgE (07/04/2012 3:25 PM EDT) Yee, IgE <0.10 <0.35 kU/L CERNER MILLENNIUM Comment: Test Performed by: [email or web address] [place] [address] Yee IgE Flag 0 CER NER MILLENNIUM Comment: This test was developed and its performance characteristics determined by the [employer]. It has not been cleared or approved by the FDA. Test Performed by: [employer] [place] [address] Blood specimen (specimen) 07/04/2012 3:25 PM EDT 07/04/2012 3:47 PM EDT Narrative Resulting Agency Comment Spec In Lab Janina Styles MD IMMUNOLOGY ORDERABLE S Performing Organization Address [facility] Co de Phone Number [facility] * Codfish IgE (07/04/2012 3:25 PM EDT) Codfish IgE <0.35 kU/L CERNER MILLENNIUM Comment: Class 0 (Negative <0.35) Test Performed by: [address] [address] Material Mover: Jordan Velazquez III, M.D. Blood specimen (specimen) 07/04/2012 3:25 PM EDT 07/04/2012 3:47 PM EDT Narrative Resulting Agency Comment Spec In Lab Janina Styles MD IMMUNOLOGY ORDERABLE S [facility] * Shrimp IgE (07/04/2012 3:25 PM EDT) Shrimp, IgE <0.35 kU/L CERNER MILLENNIUM Comment: Class 0 (Negative <0.35) Test Performed by: [place] [address] Material Mover: Jordan Velazquez III, M.D. Blood specimen (specimen) 07/04/2012 3:25 PM EDT 07/04/2012 3:47 PM EDT Narrative Resulting Agency Comment Spec In Lab Janina Styles MD IMMUNOLOGY ORDERABLE S Performing Organization Address City/[facility] Co de Phone Number VIRAJ CHENIUM * Scallop IgE (07/04/2012 3:25 PM EDT) Scallop, IgE <0.35 kU/L CERNER MILLENNIUM Comment: Class 0 (Negative <0.35) Test Performed by: [place] [address] Material Mover: Jordan Velazquez III, M.D. Blood specimen (specimen) 07/04/2012 3:25 PM EDT 07/04/2012 3:47 PM EDT Narrative Resulting Agency Comment Spec In Lab Janina Styles MD IMMUNOLOGY ORDERABLE S VIRAJ CHENIUM * Oyster IgE (07/04/2012 3:25 PM EDT) Oyster, IgE <0.35 kU/L CERNER MILLENNIUM Comment: Class 0 (Negative <0.35) Test Performed by: [place] [address] Material Mover: Jordan Velazquez III, M.D. Blood specimen (specimen) 07/04/2012 3:25 PM EDT 07/04/2012 3:47 PM EDT Narrative Resulting Agency Comment Spec In Lab Janina Styles MD IMMUNOLOGY ORDERABLE S Performing Organization Address City/[facility]/ZIP Co de Phone Number CERNER MILLENNIUM * Lobster IgE (07/04/2012 3:25 PM EDT) Lobster, IgE <0.35 kU/L CERNER MILLENNIUM Comment: Class 0 (Negative <0.35) Test Performed by: [place] [address] Material Mover: Jordan Velazquez III, M.D. Blood specimen (specimen) 07/04/2012 3:25 PM EDT 07/04/2012 3:47 PM EDT Narrative Resulting Agency Comment Spec In Lab Janina Styles MD IMMUNOLOGY ORDERABLE S Performing Organization Address [facility] de Phone Number CERNER MILLENNIUM * Crab IgE (07/04/2012 3:25 PM EDT) Crab, IgE <0.35 kU/L CERNER MILLENNIUM Comment: Class 0 (Negative <0.35) Test Performed by: [place] [address] Material Mover: Jordan Velazquez III, M.D. Blood specimen (specimen) 07/04/2012 3:25 PM EDT 07/04/2012 3:47 PM EDT Narrative Resulting Agency Comment Spec In Lab Janina Styles MD IMMUNOLOGY ORDERABLE S Performing Organization Address City/[facility] Co de Phone Number CERNER MILLENNIUM * Clams IgE (07/04/2012 3:25 PM EDT) Clam, IgE <0.35 kU/L CERNER MILLENNIUM Comment: Class 0 (Negative <0.35) Test Performed by: [place] [address] Material Mover: Jordan Velazquez III, M.D. Blood specimen (specimen) 07/04/2012 3:25 PM EDT 07/04/2012 3:47 PM EDT Narrative Resulting Agency Comment Spec In Lab Janina Styles MD IMMUNOLOGY ORDERABLE S [facility] documented in this encounter Visit Diagnoses Diagnosis Shellfish allergy- Primary Allergy, unspecified not elsewhere classified Adverse food reaction Other adverse food reactions, not elsewhere classified Asthma, mild intermittent, well-controlled Unspecified asthma Allergic rhinoconjunctivitis Acute atopic conjunctivitis Environmental allergies Allergic rhinitis, cause unspecified documented in this encounter Care Teams Resident Physician Relationship Specialty Start Date End Date Myesha Barnett MD [address] [place] [id number] PCP - General 01/25/12 04/08/22 documented as of this encounter
--- OUTSIDE RECORDS SUMMARY | 2024-03-05 20:31 | XMS_ITS | Encounter Summary ---
Author Organization [facility] [place] [address] Care Team Providers Care Center Sales And Service Associate Name Role Phone Heydi Melgar MD Primary Care Provider [phone] Reason for Referral * Diagnostic Test (Routine) - Closed Specialty Diagnoses / Procedures Referred By Contac t Referred To Contact Radiology Diagnoses Facial paresthesia Neck pain on left side Procedures MRI Cervical Spine wwo Contrast Magnolia Ken MD [facility] [place] [address] [place] [address] Referral ID Status Reason Start Date Expiration Date V isits Requested Visits Authorized [id number] Closed Specialty Service Requested 04/09/2022 10/09/2023 1 1 * Diagnostic Test (Routine) - Closed Specialty Diagnoses / Procedures Referred By Contac t Referred To Contact Radiology Diagnoses Facial paresthesia Neck pain on left side Procedures MRI Brain wwo Contrast (Generic) Magnolia Ken MD [facility] [place] [address] [place] [address] [place] [address] Referral ID Status Reason Start Date Expiration Date V isits Requested Visits Authorized [id number] Closed Specialty Service Requested 04/09/2022 10/09/2023 1 1 Reason for Visit * Diagnostic Test (Routine) - Closed Specialty Diagnoses / Procedures Referred By Yasmeen page Referred To Contact Radiology Diagnoses Facial paresthesia Neck pain on left side Procedures MRI Brain wwo Contrast (Generic) Magnolia Ken MD [facility] [place] [address] [facility] [place] [address] Referral ID Status Reason Start Date Expiration Date V isits Requested Visits Authorized [id number] Closed Specialty Service Requested 04/09/2022 10/09/2023 1 1 Encounter Details Date Type Department Care Team (Latest Contact Info) Description 06/12/2022 5:59 PM EST - 06/12/2022 11:59 PM EST Hospital [place] [address] Magnolia Ken MD [facility] [place] [address] Facial paresthesia; Neck pain on left side Discharge Disposition: Home Social History Tobacco Use Types Packs/Day Years Used Date Smoking Tobacco: Never Smokeless Tobacco: Never Alcohol Use Standard Drinks/Week Comments No 0 (1 standard drink = 0.6 oz pur e alcohol) Sex and Gender Information Value Date Recorded Sex Assigned at Not on file Gender Identity Not on file Sexual Orientation Not on file documented as of this encounter Medications at Time of Discharge Medication Sig Dispensed Refills Start Date End Date ibuprofen (Advil) 800 mg Tablet Take 800 mg by mouth every 8 hours as needed. 04/11/2022 Januvia 100 mg Tablet Take 100 mg by mouth daily. 05/26/2022 albuteroL 90 mcg/actuation HFA Aerosol Inhaler Inhale 2 puffs into the lungs every 4 hours as needed. EVERY 4 TO 6 HOURS NEEDED 01/16/2022 insulin glargine (Lantus) 100 unit/mL (3 mL) pen 15 mL, INJECT 20-40 UNITS UNDER THE SKIN ONCE DAILY, 0 Refill(s) 03/02/2022 citalopram (CeleXA) 20 mg Tablet Take 20 mg by mouth daily. metFORMIN (GLUCOPHAGE) 500 mg tablet Take 1,000 mg by mouth daily. atorvastatin (LIPITOR) 80 mg tablet Take 80 mg by mouth daily. fluticasone (FLONASE) 50 mcg/actuation nasal spray 2 sprays by Each Nare route as needed. fluticasone (FLOVENT) 110 mcg/actuation inhaler Inhale 2 puffs into the lungs 2 times daily. Twice daily prn Levalbuterol Tartrate 45 mcg/actuation inhaler Inhale 1-2 puffs into the lungs every 6 hours as needed. triamcinolone (KENALOG) 0.1 % cream Apply topically as needed. loratadine (CLARITIN) 10 mg tablet Take 10 mg by mouth daily. glimepiride (AMARYL) 2 mg tablet Take 4 mg by mouth every morning (before breakfast). diazePAM (Valium) 5 mg Tablet Take 1 tablet by mouth as needed (for MRI only). May repeat x1 for MRI 1 tablet 05/28/2022 06/25/2022 epiNEPHrine (EPIPEN) 0.3 mg/0.3 mL (1:1,000) injection Inject 0.3 mLs into the muscle once as needed (difficulty breathing, throat swelling, loss of consciousness) for 1 dose. Call 911. 2 each 1 07/04/2012 06/25/2022 documented as of this encounter Plan of Treatment Not on file documented as of this encounter Procedures Procedure Name Priority Date/Time Associated Diagnosis Comments MRI CERVICAL SPINE WITH/WO CONTRAST Routine 06/12/2022 7:31 PM EST Facial paresthesia Neck pain on left side MRI BRAIN WWO CONTRAST (GENERIC) Routine 06/12/2022 7:31 PM EST Facial paresthesia Neck pain on left side documented in this encounter Results * MRI Cervical Spine wwo Contrast (06/12/2022 7:31 PM EST) Anatomical Region Laterality Modality C-spine Magnetic Resonan ce Impressions 06/13/2022 10:49 AM EST 1. ??Normal brain. 2. ??No identifiable 5th cranial nerve lesion. 3. ??Asymmetric prominence of the frontal branch of the right superficial temporal artery, likely normal variant. 4. ??At most cervical spinal canal stenosis, greatest at C5-6. 5. ??Multilevel neural foraminal stenoses, bilaterally severe at C5-6. Heterogeneous, diffusely enlarged thyroid gland consistent with goiter. 1.2 cm isthmus nodule requiring no further evaluation. The majority of incidental thyroid nodules (ITNs) are benign. To avoid unnecessary evaluation the [employer] recommends the following for ITNs discovered on CTor MRI: In patients less than 35 years of age with normal life expectancy, any ITN without suspicious features, 1cm or larger should undergo dedicated thyroid sonography. In patients greater than 35 years of age with normal life expectancy, any ITN without suspicious features, 1.5 cm or larger should undergo dedicated thyroid sonography. Reference: Francisco OLIVEIRA, et al. Managing Incidental Thyroid Nodules Detected on Imaging: White Paper of the ACR Incidental Thyroid Findings Committee. J Am Charo Radiol 2015;12:143-150. . Thank you for letting us participate in the care of this patient. ??If you are a health care provider and have any questions regarding this report, please contact the number below. ??For patients who have questions please contact the health patient care secretary that requested your imaging first. ? 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 COMPARISON: None FINDINGS: Head: There is no abnormal brain parenchymal signal or enhancement. No abnormal signal or enhancement in the brainstem. No midline shift, mass effect, hydrocephalus or extra-axial collection. Mild cerebral volume loss without lobar predominance. Cerebral aqueduct and foramen magnum are patent. Slightly small pituitary gland without mass. No abnormal leptomeningeal enhancement intracranially or in the upper cervical spinal canal. No suspicious osseous lesions. No abnormal signal, enhancement or mass along the cisternal 5th nerves, within Meckel's caves, or along the course of V1, V2 or V3. Orbits, globes, extraocular muscles and optic nerves are normal. Slightly asymmetric prominence of the frontal branch of the right superficial temporal artery, likely normal variant. Right maxillary sinus mucus retention cyst, otherwise the paranasal sinuses are clear. Mastoid air cells are clear. No abnormal enhancement or mass in the cerebellopontine angles, internal auditory canals or labyrinthine structures. Cervical spine: Straightening of usual cervical lordosis. Vertebral body height and alignment are preserved. No abnormal spinal cord signal or caliber. Normal alignment at the craniocervical junction. Normal prevertebral soft tissues. Normal marrow signal. No suspicious osseous lesions. No abnormal enhancement in the spinal canal. Enlarged, heterogeneous thyroid gland with a 1.2 cm nodule within the isthmus. Degenerative changes by level: C2-3: No significant disc bulge, canal or foraminal stenosis. C3-4: Disc bulge mildly narrows the spinal canal. Left greater than right facet arthropathy and uncovertebral hypertrophy with moderate to severe left and mild right foraminal stenosis. C4-5: Disc bulge mildly narrows the spinal canal. Left greater than right uncovertebral hypertrophy with moderate left greater than right neural foraminal stenosis. C5-6: Disc bulge mildly narrows the spinal canal. Severe bilateral foraminal stenosis due to uncovertebral hypertrophy. C6-7: No significant disc bulge or canal stenosis. Mild left foraminal stenosis due to uncovertebral hypertrophy. Right neural foramen is patent. C7-T1: No significant disc bulge, canal or foraminal stenosis. 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 COMPARISON: None FINDINGS: Head: There is no abnormal brain parenchymal signal or enhancement. No abnormalsignal or enhancement in the brainstem. No midline shift, mass effect,hydrocephalus or extra-axial collection. Mild cerebral volume loss without lobarpredominance. Cerebral aqueduct and foramen magnum are patent. Slightly small pituitarygland without mass. No abnormal leptomeningeal enhancement intracranially or inthe upper cervical spinal canal. No suspicious osseous lesions. No abnormal signal, enhancement or mass along the cisternal 5th nerves,within Meckel's caves, or along the course of V1, V2 or V3. Orbits, globes,extraocular muscles and optic nerves are normal. Slightly asymmetric prominence of the frontal branch of the rightsuperficial temporal artery, likely normal variant. Right maxillary sinus mucusretention cyst, otherwise the paranasal sinuses are clear. Mastoid air cells areclear. No abnormal enhancement or mass in the cerebellopontine angles, internalauditory canals or labyrinthine structures. Cervical spine: Straightening of usual cervical lordosis. Vertebral body height andalignment are preserved. No abnormal spinal cord signal or caliber. Normal alignmentat the craniocervical junction. Normal prevertebral soft tissues. Normalmarrow signal. No suspicious osseous lesions. No abnormal enhancement in thespinal canal. Enlarged, heterogeneous thyroid gland with a 1.2 cm nodule within theisthmus. Degenerative changes by level: C2-3: No significant disc bulge, canal or foraminal stenosis. C3-4: Disc bulge mildly narrows the spinal canal. Left greater than rightfacet arthropathy and uncovertebral hypertrophy with moderate to severe left andmild right foraminal stenosis. C4-5: Disc bulge mildly narrows the spinal canal. Left greater thanright uncovertebral hypertrophy with moderate left greater than right neuralforaminal stenosis. C5-6: Disc bulge mildly narrows the spinal canal. Severe bilateralforaminal stenosis due to uncovertebral hypertrophy. C6-7: No significant disc bulge or canal stenosis. Mild left foraminalstenosis due to uncovertebral hypertrophy. Right neural foramen is patent. C7-T1: No significant disc bulge, canal or foraminal stenosis. IMPRESSION 1. Normal brain. 2. No identifiable 5th cranial nerve lesion. 3. Asymmetric prominence of the frontal branch of the right superficial temporal artery, likely normal variant. 4. At most cervical spinal canal stenosis, greatest at C5-6. 5. Multilevel neural foraminal stenoses, bilaterally severe at C5-6. Heterogeneous, diffusely enlarged thyroid gland consistent with goiter.1.2 cm isthmus nodule requiring no further evaluation. The majority of incidental thyroid nodules (ITNs) are benign. To avoid unnecessary evaluation the [employer]recommends the following for ITNs discovered on CTor MRI: In patients less than 35 years of age with normal life expectancy, anyITN without suspicious features, 1cm or larger should undergo dedicatedthyroid sonography. In patients greater than 35 years of age with normal life expectancy, anyITN without suspicious features, 1.5 cm or larger should undergo dedicatedthyroid sonography. Reference: Francisco OLIVEIRA, et al. Managing Incidental Thyroid Nodules Detected on Imaging:White Paper of the ACR Incidental Thyroid Findings Committee. J Am Charo Radiol 2015;12:143-150. . Thank you for letting us participate in the care of this patient. If youare a health care provider and have any questions regarding this report,please contact the number below. For patients who have questions please contactthe health patient care secretary that requested your imaging first. Magnolia Ken MD G MRI ORDERABLES * MRI Brain wwo Contrast (Generic) (06/12/2022 7:31 PM EST) Anatomical Region Laterality Modality Head Magnetic Resonan ce Impressions 06/13/2022 10:49 AM EST 1. ??Normal brain. 2. ??No identifiable 5th cranial nerve lesion. 3. ??Asymmetric prominence of the frontal branch of the right superficial temporal artery, likely normal variant. 4. ??At most cervical spinal canal stenosis, greatest at C5-6. 5. ??Multilevel neural foraminal stenoses, bilaterally severe at C5-6. Heterogeneous, diffusely enlarged thyroid gland consistent with goiter. 1.2 cm isthmus nodule requiring no further evaluation. The majority of incidental thyroid nodules (ITNs) are benign. To avoid unnecessary evaluation the [employer] recommends the following for ITNs discovered on CTor MRI: In patients less than 35 years of age with normal life expectancy, any ITN without suspicious features, 1cm or larger should undergo dedicated thyroid sonography. In patients greater than 35 years of age with normal life expectancy, any ITN without suspicious features, 1.5 cm or larger should undergo dedicated thyroid sonography. Reference: Francisco LingK, et al. Managing Incidental Thyroid Nodules Detected on Imaging: White Paper of the ACR Incidental Thyroid Findings Committee. J Am Charo Radiol 2015;12:143-150. . Thank you for letting us participate in the care of this patient. ??If you are a health care provider and have any questions regarding this report, please contact the number below. ??For patients who have questions please contact the health patient care secretary that requested your imaging first. ? 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 COMPARISON: None FINDINGS: Head: There is no abnormal brain parenchymal signal or enhancement. No abnormal signal or enhancement in the brainstem. No midline shift, mass effect, hydrocephalus or extra-axial collection. Mild cerebral volume loss without lobar predominance. Cerebral aqueduct and foramen magnum are patent. Slightly small pituitary gland without mass. No abnormal leptomeningeal enhancement intracranially or in the upper cervical spinal canal. No suspicious osseous lesions. No abnormal signal, enhancement or mass along the cisternal 5th nerves, within Meckel's caves, or along the course of V1, V2 or V3. Orbits, globes, extraocular muscles and optic nerves are normal. Slightly asymmetric prominence of the frontal branch of the right superficial temporal artery, likely normal variant. Right maxillary sinus mucus retention cyst, otherwise the paranasal sinuses are clear. Mastoid air cells are clear. No abnormal enhancement or mass in the cerebellopontine angles, internal auditory canals or labyrinthine structures. Cervical spine: Straightening of usual cervical lordosis. Vertebral body height and alignment are preserved. No abnormal spinal cord signal or caliber. Normal alignment at the craniocervical junction. Normal prevertebral soft tissues. Normal marrow signal. No suspicious osseous lesions. No abnormal enhancement in the spinal canal. Enlarged, heterogeneous thyroid gland with a 1.2 cm nodule within the isthmus. Degenerative changes by level: C2-3: No significant disc bulge, canal or foraminal stenosis. C3-4: Disc bulge mildly narrows the spinal canal. Left greater than right facet arthropathy and uncovertebral hypertrophy with moderate to severe left and mild right foraminal stenosis. C4-5: Disc bulge mildly narrows the spinal canal. Left greater than right uncovertebral hypertrophy with moderate left greater than right neural foraminal stenosis. C5-6: Disc bulge mildly narrows the spinal canal. Severe bilateral foraminal stenosis due to uncovertebral hypertrophy. C6-7: No significant disc bulge or canal stenosis. Mild left foraminal stenosis due to uncovertebral hypertrophy. Right neural foramen is patent. C7-T1: No significant disc bulge, canal or foraminal stenosis. 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 COMPARISON: None FINDINGS: Head: There is no abnormal brain parenchymal signal or enhancement. No abnormalsignal or enhancement in the brainstem. No midline shift, mass effect,hydrocephalus or extra-axial collection. Mild cerebral volume loss without lobarpredominance. Cerebral aqueduct and foramen magnum are patent. Slightly small pituitarygland without mass. No abnormal leptomeningeal enhancement intracranially or inthe upper cervical spinal canal. No suspicious osseous lesions. No abnormal signal, enhancement or mass along the cisternal 5th nerves,within Meckel's caves, or along the course of V1, V2 or V3. Orbits, globes,extraocular muscles and optic nerves are normal. Slightly asymmetric prominence of the frontal branch of the rightsuperficial temporal artery, likely normal variant. Right maxillary sinus mucusretention cyst, otherwise the paranasal sinuses are clear. Mastoid air cells areclear. No abnormal enhancement or mass in the cerebellopontine angles, internalauditory canals or labyrinthine structures. Cervical spine: Straightening of usual cervical lordosis. Vertebral body height andalignment are preserved. No abnormal spinal cord signal or caliber. Normal alignmentat the craniocervical junction. Normal prevertebral soft tissues. Normalmarrow signal. No suspicious osseous lesions. No abnormal enhancement in thespinal canal. Enlarged, heterogeneous thyroid gland with a 1.2 cm nodule within theisthmus. Degenerative changes by level: C2-3: No significant disc bulge, canal or foraminal stenosis. C3-4: Disc bulge mildly narrows the spinal canal. Left greater than rightfacet arthropathy and uncovertebral hypertrophy with moderate to severe left andmild right foraminal stenosis. C4-5: Disc bulge mildly narrows the spinal canal. Left greater thanright uncovertebral hypertrophy with moderate left greater than right neuralforaminal stenosis. C5-6: Disc bulge mildly narrows the spinal canal. Severe bilateralforaminal stenosis due to uncovertebral hypertrophy. C6-7: No significant disc bulge or canal stenosis. Mild left foraminalstenosis due to uncovertebral hypertrophy. Right neural foramen is patent. C7-T1: No significant disc bulge, canal or foraminal stenosis. IMPRESSION 1. Normal brain. 2. No identifiable 5th cranial nerve lesion. 3. Asymmetric prominence of the frontal branch of the right superficial temporal artery, likely normal variant. 4. At most cervical spinal canal stenosis, greatest at C5-6. 5. Multilevel neural foraminal stenoses, bilaterally severe at C5-6. Heterogeneous, diffusely enlarged thyroid gland consistent with goiter.1.2 cm isthmus nodule requiring no further evaluation. The majority of incidental thyroid nodules (ITNs) are benign. To avoid unnecessary evaluation the [employer]iologyrecommends the following for ITNs discovered on CTor MRI: In patients less than 35 years of age with normal life expectancy, anyITN without suspicious features, 1cm or larger should undergo dedicatedthyroid sonography. In patients greater than 35 years of age with normal life expectancy, anyITN without suspicious features, 1.5 cm or larger should undergo dedicatedthyroid sonography. Reference: Francisco OLIVEIRA et al. Managing Incidental Thyroid Nodules Detected on Imaging:White Paper of the ACR Incidental Thyroid Findings Committee. J Am Charo Radiol 2015;12:143-150. . Thank you for letting us participate in the care of this patient. If youare a health care provider and have any questions regarding this report,please contact the number below. For patients who have questions please contactthe health patient care secretary that requested your imaging first. Magnolia Ken MD IMG MRI ORDERABLES documented in this encounter Visit Diagnoses Diagnosis Facial paresthesia Neck pain on left side Cervicalgia documented in this encounter Administered Medications Inactive Administered Medications - up to 3 most recent administrations Medication Order MAR Action Action Date Dose Rate Site gadoterate meglumine (Dotarem) (0.5 mMol/mL) injection solution 0-100 mL 0-100 mL, Intravenous, ONCE PRN, 1 dose, Starting on Sat06/12/22 at 1807, Until Sat06/12/22 at 1909, Per Protocol, Radiology Contrast, Routine Given 06/12/2022 7:09 PM EST 17 mLs documented in this encounter Care Teams Center Sales And Service Associate Relationship Specialty Start Date End Date Heydi Melgar MD [address] [place] [address] PCP - General Family Medicine 04/09/22 documented as of this encounter
--- OUTSIDE RECORDS SUMMARY | 2024-03-05 20:31 | XMS_ITS | Encounter Summary ---
[place] [address] Care Team Providers Care Shipyard Supervisor Name Role Phone Heydi Melgar MD Primary Care Provider [phone] Reason for Visit * Reason Onset Date Comments New Medication Request 05/22/2022 Encounter Details Date Type Department Care Team (Late st Contact Info) Description 05/22/2022 [place] [address] Magnolia Ken MD [facility] [place] [address] Social History Tobacco Use Types Packs/Day Years Used Date Smoking Tobacco: Never Smokeless Tobacco: Never Alcohol Use Standard Drinks/Week Comments No 0 (1 standard drink = 0.6 oz pur e alcohol) Sex and Gender Information Value Date Recorded Sex Assigned at Not on file Gender Identity Not on file Sexual Orientation Not on file documented as of this encounter Miscellaneous Notes * Telephone Encounter - Tawny Telles LNA - 05/22/2022 12:26 PM EST Copied from [facility] #[id number]. Topic: Specialty Dept CRMs - Medication Issues >> May 22, 2022 12:04 PM Fredo Odonnell wrote: Medication Issues Specialist Dr. Magnolia Ken Relationship (if other than patient-full name): Patient Reason for call: Medication Issue (if symptom based used Triage Subtopic) Message/information for the nurse: New medication request Name of Medication: unknown Issue with the medication: Patient called and stated when she last met with Dr. Ken she orderedan MRI. Patient also stated Dr. Ken discussed prescribing something to help with the MRI. Patient stated she was not sure about it, however after learning how long she would need to be in the machine she would like to know if something can be given to help. documented in this encounter Plan of Treatment Not on file documented as of this encounter Visit Diagnoses Not on filedocumented in this encounter Care Teams Shipyard Supervisor Relationship Specialty Start Date End Date Heydi Melgar MD [address] [place] [address] PCP - General Family Medicine 04/09/22 documented as of this encounter
--- OUTSIDE RECORDS SUMMARY | 2024-03-05 20:31 | XMS_ITS | Encounter Summary ---
Author Organization [facility] Address [address] [place] [address] Care Team Providers Care Leather Goods Maker Name Role Phone Unavailable Primary Care Provider Unavailabl e Encounter Details Date Type Department Care Team (Late st Contact Info) Description 01/25/2015 Results Only [facility] [phone] Malu Dias, [facility] [address] [place] [address] Social History Tobacco Use Types [...] Procedure Name Priority Date/Time Associated Diagnosis Comments PAP TEST- RESULT ONLY Routine 01/25/2015 0:00 EDT documented in this encounter Results * PAP TEST- RESULT ONLY (01/25/2015 0:00 EDT) Pathology Report: CYTOPATHOLOGY REPORT Reports generated via electronic interface contain original data; however they are lacking the format of the original report. Caution should be taken when reading/interpreti ng unformatted reports. Name: ? LINDA NOBLE ? Accession #: ? [id number] ? : ? 1960 (Age: 54) ??F ?Collect Date: ? 01/25/2015 ? Location: ? [facility] ? Receive Date: ? 01/26/2015 ? Provider: MALU DIAS EXECUTOR OF ESTATE Copy to: SHERIDAN SOSA MD ? Final Report SPECIMEN ADEQUACY ? Satisfactory for Evaluation - transformation zone component present GENERAL CATEGORIZATION ? Negative for Intraepithelial Lesion or Malignancy ?? Hormonal/Contracep tive status: Intrauterine device: Mirena Specimen/Source: ??Pap Test, Cervix/Endocervix, ThinPrep Imaging System with manual evaluation Document reviewed and electronically signed by: ? FLORENTIN Bales(ASCP) ? Report ??Date: 01/27/2015 14:30 HPV with Pap Test ? Date Ordered: ? 01/27/2015 ? Status: ?? Signed Out ?Date Complete: ? 02/01/2015 ? By: ??System Interface ? Date Reported: ? 02/01/2015 ? Interpretation RESULT: Negative for HPV. No E6 or E7 mRNA is detected from HPV types 16,18,31,33,35, 39,45,51,52,56,58, 59,66, and 68 by dock associate mediated amplification. Comments Document reviewed and electronically signed by: ? System Interface ? Report date: 02/01/2015 By the signature above, the attending physician certifies that he/she has personally conducted a gross and/or microscopic examination of the described specimens and rendered or confirmed the above diagnosis. End of Report [facility] 01/25/2015 01/26/2015 us Malu Dias EXECUTOR OF ESTATE PATHOLOGY ORDERABLES Final R esult [facility] [address] [place] [address] documented in this encounter Visit Diagnoses Not on filedocumented in this encounter
--- OUTSIDE RECORDS SUMMARY | 2024-03-05 20:31 | XMS_ITS | Encounter Summary ---
Author Organization [facility] Address [address] [place] [address] Care Team Providers Care Progress Worker Name Role Phone Unknown, Provider Primary Care Provider Unava ilable Encounter Details Date Type Department Care Team (Late st Contact Info) Description 06/02/2018 Results Only [facility] [phone] Malu Dias, [facility] [address] [place] [phone] Social History Tobacco Use Types Packs/Day Years [...] Diagnosis Comments PAP TEST- RESULT ONLY Routine 06/02/2018 0:00 EST documented in this encounter Results * PAP TEST- RESULT ONLY (06/02/2018 0:00 EST) Pathology Report: CYTOPATHOLOGY REPORT Reports generated via electronic interface contain original data; however they are lacking the format of the original report. Caution should be taken when reading/interpreti ng unformatted reports. Name: ? LINDA NOBLE ? Accession #: ? [id number] ? : ? 1960 (Age: 58) ??F ?Collect Date: ? 06/02/2018 ? Location: ? [facility] ? Receive Date: ? 06/03/2018 ? Provider: MALU DIAS MORTGAGE LOAN SPECIALIST Copy to: SHERIDAN SOSA MD ? Final Report SPECIMEN ADEQUACY ? Satisfactory for Evaluation - transformation zone component present GENERAL CATEGORIZATION ? Negative for Intraepithelial Lesion or Malignancy INTERPRETATION ? Reactive cellular changes associated with inflammation present (includes repair). Last Menstrual Period: 2010 Specimen/Source: ??Pap Test, Cervix, ThinPrep Imaging System with manual evaluation Document reviewed and electronically signed by: ? DEREJE NAVAS MD ? Report ??Date: 06/06/2018 14:08 HPV with Pap Test ? Date Ordered: ? 06/06/2018 ? Status: ?? Signed Out ?Date Complete: ? 06/09/2018 ? By: ??System Interface ? Date Reported: ? 06/09/2018 ? Interpretation RESULT: Negative for HPV. No E6 or E7 mRNA is detected from HPV types 16,18,31,33,35, 39,45,51,52,56,58, 59,66, and 68 by pull worker mediated amplification. Comments Document reviewed and electronically signed by: ? System Interface ? Report date: 06/09/2018 By the signature above, the attending physician certifies that he/she has personally conducted a gross and/or microscopic examination of the described specimens and rendered or confirmed the above diagnosis. End of Report [facility] 06/02/2018 06/03/2018 us Malu Dias MORTGAGE LOAN SPECIALIST PATHOLOGY ORDERABLES Final R esult [facility] [address] [place] [address] documented in this encounter Visit Diagnoses Not on filedocumented in this encounter Care Teams Progress Worker Relationship Specialty Start Date End Date Unknown, Provider, PCP - General 08/04/17 03/21/22 documented as of this encounter
--- OUTSIDE RECORDS SUMMARY | 2024-03-05 20:31 | XMS_ITS | Encounter Summary ---
Author Organization [facility] [place] [address] Care Team Providers Care Value Analyst Name Role Phone Myesha Barnett MD Primary Care Provider [phone] Encounter Details Date Type Department Care Team (Late st Contact Info) Description 11/06/2012 External Results [place] [address] Janina Styles MD [facility] [place] [address] Social History Tobacco Use Types Packs/Day Years [...] Procedure Name Priority Date/Time Associated Diagnosis Comments DH ALLERGY SKIN TEST Routine 07/04/2012 documented in this encounter Results * Allergy Skin Test (07/04/2012) Janina Styles MD [facility] ORD ERABLES documented in this encounter Visit Diagnoses Not on filedocumented in this encounter Care Teams Value Analyst Relationship Specialty Start Date End Date Myesha Barnett MD [address] [place], [place] [address] PCP - General 01/25/12 04/08/22 documented as of this encounter
--- OUTSIDE RECORDS SUMMARY | 2024-03-05 20:31 | XMS_ITS | Encounter Summary ---
Author Organization [facility] Address [address] [place] [address] Care Team Providers Care Organic Lab Worker Name Role Phone Unknown, Provider Primary Care Provider Heydi Camacho MD Primary Care Provider [phone] Encounter Details Date Type Department Care Team (Late st Contact Info) Description 06/10/2019 Lab Requisition [facility] Pathology & Laboratory Medicine - [address] [address] Unknown, Provider, Social History Tobacco Use Types Packs/Day Years [...] Procedure Name Priority Date/Time Associated Diagnosis Comments GIARDIA AND CRYPTOSPORIDIUM ANTIGENS Routine 06/10/2019 7:45 EST documented in this encounter Results * GIARDIA AND CRYPTOSPORIDIUM ANTIGENS (06/10/2019 7:45 EST) Giardia and Cryptosporidium Cryptosporidium Antigen Neg and Giardia Antigen Neg Cryptosporidium Antigen Neg and Giardia Antigen Neg 0 9:10 EST [facility] Feces SPECIMEN FROM RECTUM / Unknown 06/10/2019 7:45 EST 06/10/2019 16:50 EST us Provider Unknown MICROBIOLOGY - GENERAL ORDER MEIR Final Result [facility] [address] [place] [address] documented in this encounter Visit Diagnoses Not on filedocumented in this encounter Care Teams Organic Lab Worker Relationship Specialty Start Date End Date Unknown, Provider, PCP - General 08/04/17 03/21/22 Heydi Melgar MD [address] [place] [address] PCP - General Family Medicine - Primary Care 03/22/22 documented as of this encounter
--- OUTSIDE RECORDS SUMMARY | 2024-03-05 20:31 | XMS_ITS | Encounter Summary ---
[place] [address] Care Team Providers Care Mechanical Applications Engineer Name Role Phone Myesha Barnett MD Primary Care Provider [phone] Reason for Referral * Consultation (Routine) - Closed Specialty Diagnoses / Procedures Referred By Yasmeen page Referred To Contact Neurology Diagnoses Facial paresthesia Heydi Melgar MD [address] [place] [address] [facility] Neurology [address] [place] [phone] Referral ID Status Reason Start Date Expiration Date V isits Requested Visits Authorized [id number] Closed Consult, Test & Treat PCP Updated and/or Approved 11/15/2021 11/15/2022 6 6 Encounter Details Date Type Department Care Team (Late st Contact Info) Description 11/15/2021 Transcribe Orders eDH Incoming Referrals [phone] Heydi Melgar MD [address] [place] [address] Facial paresthesia Social History Tobacco Use Types Packs/Day Years Used Date Smoking Tobacco: Never Smokeless Tobacco: Never Alcohol Use Standard Drinks/Week Comments No 0 (1 standard drink = 0.6 oz pur e alcohol) Sex and Gender Information Value Date Recorded Sex Assigned at Not on file Gender Identity Not on file Sexual Orientation Not on file documented as of this encounter Plan of Treatment Scheduled Referrals Name Type Priority Associated Diagnoses Orde r Schedule Referral to Neurology Outpatient Referral Routine Facial Paresthesia Ordered: 11/15/2021 documented as of this encounter Visit Diagnoses Diagnosis Facial paresthesia documented in this encounter Care Teams Mechanical Applications Engineer Relationship Specialty Start Date End Date Myesha Barnett MD [address] [place] [address] PCP - General 01/25/12 04/08/22 documented as of this encounter
--- OUTSIDE RECORDS SUMMARY | 2024-03-05 20:31 | XMS_ITS | Encounter Summary ---
[place] [address] Care Team Providers Care Sewer Contractor Name Role Phone Heydi Melgar MD Primary Care Provider [phone] Encounter Details Date Type Department Care Team (Latest Contact Info) Description 06/12/2022 Travel Social History Tobacco Use Types Packs/Day [...] on filedocumented in this encounter Care Teams Sewer Contractor Relationship Specialty Start Date End Date Heydi Melgar MD [address] [place] [address] PCP - General Family Medicine 04/09/22 documented as of this encounter
--- OUTSIDE RECORDS SUMMARY | 2024-03-05 20:31 | XMS_ITS | Encounter Summary ---
Author Organization [facility] Address [address] [place] [address] Care Team Providers Care Supervisor Lump Room Name Role Phone Unknown, Provider Primary Care Provider Heydi Camacho MD Primary Care Provider [phone] Encounter Details Date Type Department Care Team (Late st Contact Info) Description 07/07/2021 Lab Requisition [facility] Pathology & Laboratory Medicine - [facility] [address] [place] [address] Malu Dias, [facility] [address] [place] [phone] Encounter for other general examination Social History Tobacco Use Types Packs/Day Years [...] Name Priority Date/Time Associated Diagnosis Comments PAP TEST Today 07/06/2021 15:00 EDT Encounter for other general examination HPV DNA DETECTION WITH GENOTYPING, PCR Today 07/06/2021 15:00 EDT Encounter for other general examination documented in this encounter Results * HUMAN PAPILLOMAVIRUS (HPV) DETECTION-HIGH RISK TYPES (07/06/2021 15:00 EDT) HPV other High Risk types, PCR Negative Negative 07/13/2021 19:45 EDT [facility] Papanicolaou smear specimen (specimen) CERVIX UTERI STRUCTURE / Unknown 07/06/2021 15:00 EDT 07/12/2021 12:44 EDT us Malu Dias PORCELAIN ENAMEL REPAIRER MICROBIOLOGY - GENERAL ORDER MEIR Final Result [facility] [address] [place] [address] * PAP TEST (07/06/2021 15:00 EDT) Specimens A. Cervix and/or Endocervix , ThinPrep Imaging System with Manual Evaluation 07/13/2021 19:45 [facility] Specimen Adequacy Satisfactory for Evaluation - transformation zone component present 07/13/2021 19:45 [facility] General Categorization Negative for intraepithelial lesion or malignancy 07/13/2021 19:45 [facility] Attestation . 07/13/2021 19:45 [facility] at 1945 Clinical History See below 07/14/19 19:45 [facility] HPV The result for the Human Papillomavirus (HPV) Detection-High Risk Types is Negative. No E6 or E7 mRNA is detected from HPV types 16,18,31,33,35,39 ,45,51,52,56,58,5 9,66, and 68 by operations program manager mediated amplification.Charlene ting was performed on specimen [id number] and was resulted on 07/13/2021 1736 EDT by VALDEMAR, LAB INSTRUMENT RESULTS IN 07/13/2021 19:45 T [facility] Performing Lab [facility] 07/13/2021 19:45 T [facility] Scanned Images 07/13/2021 19:45 [facility] Papanicolaou smear specimen (specimen) CERVIX UTERI STRUCTURE / Unknown 07/06/2021 15:00 EDT 07/07/2021 8:55 EDT us Malu Dias PORCELAIN ENAMEL REPAIRER PATHOLOGY ORDERABLES Final R esult [facility] [address] [place] [address] documented in this encounter Visit Diagnoses Diagnosis Encounter for other general examination documented in this encounter Care Teams Supervisor Lump Room Relationship Specialty Start Date End Date Unknown, Provider, PCP - General 08/04/17 03/21/22 Heydi Melgar MD [address] [place] [address] PCP - General Family Medicine - Primary Care 03/22/22 documented as of this encounter
--- OUTSIDE RECORDS SUMMARY | 2024-03-05 20:31 | XMS_ITS | Encounter Summary ---
Author Organization [facility] Address [address] [place] [address] Care Team Providers Care Security Assurance Analyst Name Role Phone Unavailable Primary Care Provider Unavailabl e Encounter Details Date Type Department Care Team (Late st Contact Info) Description 02/25/2006 Results Only [facility] [address] [place] [address] Malu Dias, [facility] [address] [place] [address] Social History Tobacco Use Types [...] Priority Date/Time Associated Diagnosis Comments CYTOPATHOLOGY Routine 02/25/2006 0:00 EST documented in this encounter Results * CYTOPATHOLOGY (02/25/2006 0:00 EST) Pathology Report: CYTOPATHOLOGY REPORT Reports generated via electronic interface contain original data; however they are lacking the format of the original report. Caution should be taken when reading/interpreti ng unformatted reports. Name: ? LINDA NOBLE ? Accession #: ? [id number] : ? 1960 (Age: 45) ??F ?Collect Date: ? 02/25/2006 Location: ? [facility] ? Receive Date: ? 02/26/2006 Provider: ?MALU DIAS CONVOLUTE TUBE WINDER Copy to: ? Specimen/Source: ?ThinPrep Pap Test, Cervix/Endocervix, processed on DataKraftPrep Imaging System, with manual evaluation Last Menstrual Period: ? 02/15/06 Hormonal/Contracep tive Status: ? Yes: had Vasectomy Other: ? HPVA - HPV testing requested if ASC-US on the current ThinPrep Pap test. ? SPECIMEN ADEQUACY ? Satisfactory for Evaluation - transformation zone component present GENERAL CATEGORIZATION ? Negative for Intraepithelial Lesion or Malignancy ? Document reviewed and electronically signed by: ? FLORENTIN Piña(ASCP) ? Report Date: ??03/05/2006 09:57 End of Report [facility] 02/25/2006 02/26/2006 us Malu Dias CONVOLUTE TUBE WINDER PATHOLOGY ORDERABLES Final R esult [facility] [address] [place] [address] documented in this encounter Visit Diagnoses Not on filedocumented in this encounter
--- OUTSIDE RECORDS SUMMARY | 2024-03-05 20:31 | XMS_ITS | Encounter Summary ---
Author Organization [facility] Address [facility] [place] [address] Care Team Providers Care Automatic Lathe Setter Name Role Phone Myesha Barnett MD Primary Care Provider [phone] Reason for Visit * Reason Onset Date Comments Appointment 02/28/2022 shuffle Encounter Details Date Type Department Care Team (Late st Contact Info) Description 02/28/2022 [place] [address] Magnolia Ken MD [facility] [place] [address] Appointment (shuffle) Social History Tobacco Use Types Packs/Day Years [...] encounter Miscellaneous Notes * Telephone Encounter - Nadege Prince - 03/08/2022 10:28 AM EST Patient calling in to confirm new appt time. * Telephone Encounter - Edith Tom - 02/28/2022 10:32 AM EST Please confirm appointment shuffle from 8am to 8:30am. documented in this encounter Plan of Treatment Not on file documented as of this encounter Visit Diagnoses Not on filedocumented in this encounter Care Teams Automatic Lathe Setter Relationship Specialty Start Date End Date Myesha Barnett MD [address] [place] [address] PCP - General 01/25/12 04/08/22 documented as of this encounter
--- OUTSIDE RECORDS SUMMARY | 2024-03-05 20:31 | XMS_ITS | Encounter Summary ---
Author Organization [facility] Address [address] [place] [address] Care Team Providers Care Home Designer Name Role Phone Unknown, Provider Primary Care Provider Heydi Camacho MD Primary Care Provider [phone] Encounter Details Date Type Department Care Team (Late st Contact Info) Description 06/10/2019 Lab Requisition [facility] Pathology & Laboratory Medicine - [address] [address] Unknown, Provider, Social History Tobacco Use Types [...] Procedure Name Priority Date/Time Associated Diagnosis Comments FECAL BACTERIAL PATHOGENS BY PCR Routine 06/10/2019 7:45 EST documented in this encounter Results * FECAL BACTERIAL PATHOGENS BY PCR (06/10/2019 7:45 EST) Salmonella PCR Negative Negative 06/11/2019 11:54 EST [facility] Shigella/Enteroin vasive E. coli Negative Negative 06/11/2019 11:54 EST [facility] HN LAB CAMPYLOBACTER PCR Negative Negative 06/11/2019 11:54 EST [facility] Shiga Toxin PCR Negative Negative 0 11:54 EST [facility] Feces SPECIMEN FROM RECTUM / Unknown 06/10/2019 7:45 EST 06/10/2019 16:50 EST us Provider Unknown MICROBIOLOGY - GENERAL ORDER MEIR Final Result [facility] [address] [place] [address] documented in this encounter Visit Diagnoses Not on filedocumented in this encounter Care Teams Home Designer Relationship Specialty Start Date End Date Unknown, Provider, PCP - General 08/04/17 03/21/22 Heydi Melgar MD [address] [place] [address] PCP - General Family Medicine - Primary Care 03/22/22 documented as of this encounter
--- OUTSIDE RECORDS SUMMARY | 2024-03-05 20:31 | XMS_ITS | Encounter Summary ---
Author Organization [facility] Address [facility] [place] [address] Care Team Providers Care Internet Sales Consultant Name Role Phone Myesha Barnett MD Primary Care Provider [phone] Reason for Visit * Reason Comments Allergic Reaction Encounter Details Date Type Department Care Team (Late st Contact Info) Description 11/14/2012 12:45 PM EDT [place] [address] Janina Styles MD [facility] ALLERGY [place] [address] Adverse food reaction (Primary Dx) Discharge Disposition: Home Social History Tobacco Use [...] Sign Reading Time Taken Comments Blood Pressure 135/70 11/14/2012 4:06 PM EDT Pulse 78 11/14/2012 4:06 PM EDT Temperature 36.9 ??C (98.4 ??F) 11/14/2012 4:06 PM ED T Respiratory Rate 16 11/14/2012 4:06 PM EDT Oxygen Saturation 98% 11/14/2012 4:06 PM EDT Inhaled Oxygen Concentration - - Weight 92.2 kg (203 lb 4.2 oz) 11/14/2012 12:59 PM EDT Height 157.5 cm (5' 2) 11/14/2012 12:59 PM EDT Body Mass Index 37.18 11/14/2012 12:59 PM EDT documented in this encounter Patient Instructions * Patient Instructions* Janina Styles MD - 11/14/2012 3:03 PM EDT - Continue to always have EpiPen available - If no reaction in the next 24 hours, okay to eat peanuts - If you develop a rash,wheezing, shortness of breath, throat tightness or other symptoms of allergic reaction in the next 24 hours, please call 911 and go to your local ER documented in this encounter Progress Notes * Nava Romero LPN - 11/14/2012 1:58 PM EDT Peak flow 350@ 13:45.before 1st dose Peak flow 300 @14:05 before 2nd dose Peak flow 300 @14:20 before 3rd dose Peak flow 300 @ 14:40 before 4th dose Peak flow 300 @15:00 before 5th dose. Peak flow 300 @15:15 before last dose. Oral peanut butter challenge (8grams of protein per serving of peanut butter). One serving size is two tablespoons ( ~30 grams).Please measure vitals and peak flow prior to every dose. Touch peanut butter to lip, if no immediate reaction then Touch peanut butter to tongue, if no immediate reaction then Administer 0.5 gram of peanut butter and observe for 15 minutes, if no reaction then Administer 1.0 gram of peanut butterand observe for 15 minutes, if no reaction then Administer 2.0 gram of peanut butterand observe for 15 minutes, if no reaction then Administer 3.0 grams of peanut butter and observe for 15 minutes, if no reaction then Administer 9.0 grams of peanut butterand observe for 15 minutes, if no reaction then Administer 20.0 grams of peanut butter and observe for 60 minutes. Please measure vitals and peak flow at the end of the challenge. Please contact physician prior to dismissing the patient. * Janina Styles MD - 11/14/2012 8:40 AM EDT Chief Complaint Patient presents with ??? Allergic Reaction HPI. Linda Noble Is here today for a follow up visit. Last encounter in this section was on 07/24/2012 Patient has a history of adverse reaction after eating peanuts. Skin testing and serum testing to peanuts were unremarkable. She has not had any accidental ingestions of peanut. She is here today fororal challenge to peanut. She has her EpiPen with her. Expires in 2013. She brought in peanut butter. No complaints. No rash, angioedema, abdominal pain, diarrhea or difficulty breathing. Eats tree nuts without reactions. Review of Systems: Review of Systems All other systems reviewed and are negative. Allergies, medications, past medical/ surgical history were reviewed and updated in eDH. Allergies: Latex and Sulfa (sulfonamide antibiotics) Medications: Outpatient Prescriptions Marked as Taking for the 11/14/12 encounter (Follow-Up) with Janina Styles MD Medication Sig Dispense Refill ??? metFORMIN (GLUCOPHAGE) 500 mg tablet Take 1,000 mg by mouth daily. ??? atorvastatin (LIPITOR) 80 mg tablet Take 80 mg by mouth daily. ??? glimepiride (AMARYL) 2 mg tablet Take 4 mg by mouth every morning (before breakfast). ??? fluticasone (FLONASE) 50 mcg/actuation nasal spray 2 sprays by Each Nare route daily. ??? fluticasone (FLOVENT) 110 mcg/actuation inhaler Inhale 2 puffs into the lungs 2 times daily. Twice daily prn ??? Levalbuterol Tartrate 45 mcg/actuation inhaler Inhale 1-2 puffs into the lungs every 6 hours asneeded. ??? triamcinolone (KENALOG) 0.1 % cream Apply topically 2 times daily. ??? loratadine (CLARITIN) 10 mg tablet Take 10 mg by mouth daily. ??? epiNEPHrine (EPIPEN) 0.3 mg/0.3 mL (1:1,000) injection Inject 0.3 mLs into the muscle once as needed (difficulty breathing, throat swelling, loss of consciousness) for 1 dose. Call 911. 2 each 1 Past Medical and Social History: Past Medical [...] ??? None Social History Narrative ??? None Physical Exam: Vital signs reviewed. Normal Except [...] cyanosis, or edema Skin: - No rashes Neuro/Psych: - Nl and age appropriate mood and affect - Judgement and insight intact Tests or Procedures: 11-14-12 Oral peanut challenge- Devon Ross creamy peanut butter Start time: 1:15pm End time: 4:05pm Total time:2 hours and 50 minutes No change in vitals, peak flow or physical exam after the challenge. Impression Report Plan: #1 Adverse reaction to peanuts I personally reviewed with patient the consent form for oral challenge to peanut butter. The indication is history of adverse drug reaction to peanut. Benefits include the possibility to eat peanuts in the future. Risks include but are not limited to rash, hives, angioedema, cough, wheezing, SOB, chest tightness, palpitations, light-headedness, abdominal pain, diarrhea, life- threatening anaphylaxis, delayed drug rash and non- IgE mediated reaction. Alternatives is to continue to avoid eating peanuts. Patrent had the opportunity to review the consent form and ask questions. All questions wereanswered. Ms. Noble signed the consent form. Ms. Noble tolerated the oral challenge to peanut without reaction. She was advised to monitor forsymptoms of allergic reaction for the next 24 hours and have her EpiPen always available. If no reaction, may resume eating peanut products. She has no history of reacting to tree nuts and may continue eating them. Orders Placed This Encounter Procedures ??? ORAL FOOD CHALLENGE RTC in june 2012 or sooner if symptoms worsen in the interim eDH record was reviewed. Written instructions were reviewed and provided to the patient. No learning barriers were identified. The risks, benefits, alternatives and indications for the useof mediations prescribed or recommended during today's visit were reviewed with the patient. The patient understood and agreed with what was discussed. All questions were answered. documented in this encounter Plan of Treatment Not on file documented as of this encounter Visit Diagnoses Diagnosis Adverse food reaction- Primary Other adverse food reactions, not elsewhere classified documented in this encounter Care Teams Internet Sales Consultant Relationship Specialty Start Date End Date Myesha Barnett MD [address] [place] [address] PCP - General 01/25/12 04/08/22 documented as of this encounter
--- OUTSIDE RECORDS SUMMARY | 2024-03-05 20:31 | XMS_ITS | Referral Summary ---
Author Organization [facility] Address [address] [place] [address] Care Team Providers Care Head Stock Transfer Clerk Name Role Phone Heydi Melgar MD Primary Care Provider [phone] Social History Tobacco Use Types Packs/Day Years Used Date Smoking Tobacco: Never Assessed Interpersonal Safety Answer Date Record ed Physically Hurt Never 11/24/2019 Verbally Threaten Not on file 11/24/2019 Comments Unknown Sex and Gender Information Value Date Recorded Sex Assigned at Not on file Legal Sex Female 17:25 EST Gender Identity Not on file Sexual Orientation Not on file Plan of Treatment Not on file Insurance [facility] Care Teams Head Stock Transfer Clerk Relationship Specialty Start Date End Date Heydi Melgar MD [address] [place] [phone] PCP - General Family Medicine - Primary Care 03/22/22
--- OUTSIDE RECORDS SUMMARY | 2024-03-05 20:31 | XMS_ITS | Encounter Summary ---
Author Organization [facility] Address [address] [place] [address] Care Team Providers Care Rental Boats Caretaker Name Role Phone Myesha Barnett MD Primary Care Provider Unavailabl e Encounter Details Date Type Department Care Team (Late st Contact Info) Description 08/01/2017 Results Only [facility] [phone] Patrick Reyez MD [address] [facility] [place] [phone] Social History Tobacco Use Types Packs/Day Years [...] Procedure Name Priority Date/Time Associated Diagnosis Comments SURGICAL PATHOLOGY Routine 08/01/2017 15 :43 EDT documented in this encounter Results * SURGICAL PATHOLOGY (08/01/2017 15:43 EDT) Pathology Report: SURGICAL PATHOLOGY REPORT Reports generated via electronic interface contain original data; however they are lacking the format of the original report. Caution should be taken when reading/interpreti ng unformatted reports. Name: ? LINDA NOBLE ? Accession #: ? [id number] ? : ? 1960 (Age: 57) ??F ? Collect Date: ? 08/01/2017 ? Location: ? [facility] ? Receive Date: ? 08/02/2017 ? Provider: PATRICK REYEZ MD Copy to: MYESHA BARNETT MD ? Final Pathologic Diagnosis: A. STOMACH, ANTRUM, BIOPSY: - Gastric antral mucosa with reactive (chemical) gastropathy. B. STOMACH, BODY, BIOPSY: - Gastric body mucosa with no specific pathologic features. C. ESOPHAGUS, DISTAL, BIOPSY: - Squamous mucosa with no specific pathologic features. ? D. ESOPHAGUS, PROXIMAL, BIOPSY: - Squamous mucosa with basal layer hyperplasia and intraepithelial eosinophil component. - Peak intraepithelial eosinophil count equals four eosinophils per single high power field. ? Document reviewed and electronically signed by: OSIRIS CHARLES MD Report ??Date: 08/08/2017 15:16 By the signature above, the attending physician certifies that he/she has personally conducted a gross and/or microscopic examination of the described specimens and rendered or confirmed the above diagnosis. Specimen(s) Received: A. ??Gastric antrum B. ??Gastric body C. ??Distal esophagus D. ??Proximal esophagus Clinical History: Chronic nausea and vomiting and dysphagia; R/O EoE, gastritis; clinical diagnosis code: ??R11.0, R10.13 Gross Description: A. ?Received in formalin labelled with proper patient identification (initials K, L) and A. gastric antrum are two pink-salas tissues (averaging 0.2 x 0.2 x 0.1 cm). Entirely submitted in A1. B. ?Received in formalin labelled with proper patient identification (initials K, L) and B. gastric body is a pink-salas tissue fragment (0.4 x 0.2 x 0.1 cm). Submitted intact in B1. C. ?Received in formalin labelled with proper patient identification (initials K, L) and C. distal esophagus are two salas-white tissues (averaging 0.2 x 0.1 x 0.1 cm). Entirely submitted in C1. D. ?Received in formalin labelled with proper patient identification (initials K, L) and D. proximal esophagus are two salas-white tissues (0.2 x 0.2 x 0.1 cm and 0.3 x 0.1 x 0.1 cm). Entirely submitted in D1. RADHA Nava (ASCP) 08/02/2017 4:13 PM End of Report [facility] 08/01/2017 15:4 3 EDT 08/02/2017 15:43 EDT us Patrick Reyez MD PATHOLOGY ORDERABLES Final R esult [facility] [address] [place] [address] documented in this encounter Visit Diagnoses Not on filedocumented in this encounter Care Teams Rental Boats Caretaker Relationship Specialty Start Date End Date Myesha Barnett MD PCP - General 02/26/15 08/03/17 documented as of this encounter
--- OUTSIDE RECORDS SUMMARY | 2024-03-05 20:31 | XMS_ITS | Encounter Summary ---
Author Organization [facility] Address [facility] [place] [address] Care Team Providers Care Costumed Character Name Role Phone Myesha Barnett MD Primary Care Provider [phone] Reason for Visit * Reason Onset Date Comments Results 07/24/2012 Encounter Details Date Type Department Care Team (Late st Contact Info) Description 07/24/2012 [place] [address] Janina Styles MD [facility] [place] [address] Results Social History Tobacco Use Types Packs/Day Years [...] encounter Miscellaneous Notes * Telephone Encounter - Janina Styles MD - 07/24/2012 10:59 AM EDT Office Visit on 07/04/2012 Component Date Value Range Status ? ? Clams IgE 07/04/2012 <0.35 Final Comment: Class 0 (Negative <0.35) Test Performed by: [place] [id number] Bark Grinder: Jordan Velazquez III, M.D. ? ? Crab IgE 07/04/2012 <0.35 Final Comment: Class 0 (Negative <0.35) Test Performed by: [place] [address] Bark Grinder: Jordan Velazquez III, M.D. ? ? Lobster IgE 07/04/2012 <0.35 Final Comment: Class 0 (Negative <0.35) Test Performed by: [place] [address] Bark Grinder: Jordan Velazquez III, M.D. ? ? Oyster IgE 07/04/2012 <0.35 Final Comment: Class 0 (Negative <0.35) Test Performed by: [place] [address] Bark Grinder: Jordan Velazquez III, M.D. ? ? Scallop IgE 07/04/2012 <0.35 Final Comment: Class 0 (Negative <0.35) Test Performed by: [place] [address] Bark Grinder: Jordan Vleazquez III, M.D. ? ? Shrimp IgE 07/04/2012 <0.35 Final Comment: Class 0 (Negative <0.35) Test Performed by: [place] [address] Bark Grinder: Jordan Velazquez III, M.D. ? ? Codfish IgE 07/04/2012 <0.35 Final Comment: Class 0 (Negative <0.35) Test Performed by: [place] [address] Bark Grinder: Jordan Velazquez III, M.D. ? ? James IgE 07/04/2012 <0.10 <0.35 kU/L Final Comment: Test Performed by: [facility] [place] [address] ??? James IgE Flag 07/04/2012 0 Final Comment: This test was developed and its performance characteristics determined by the [facility]. It has not been cleared or approved by the FDA. Test Performed by: [employer] [facility] [place], [place] [address] ? ? Halibut IgE 07/04/2012 <0.35 Final Comment: Class 0 (Negative <0.35) Analyte Specific Reagent: This test was developed and its performance characteristics determined by [facility]. It has not been cleared or approved by the U.S. Food and Drug Administration. Test Performed by: [place] [address] Bark Grinder: Jordan Velazquez III, M.D. ? ? Tuna IgE 07/04/2012 <0.35 Final Comment: Class 0 (Negative <0.35) Test Performed by: [place] [address] Bark Grinder: Jordan Velazquez III, M.D. ? ? [place] IgE 07/04/2012 <0.35 Final Comment: Class 0 (Negative <0.35) Test Performed by: [place] [address] Bark Grinder: Jordan Velazquez III, M.D. ? ? [place] Nut IgE 07/04/2012 <0.35 Final Comment: Class 0 (Negative <0.35) Test Performed by: [place] [address] Bark Grinder: Jordan Velazquez III, M.D. ? ? Cashew IgE 07/04/2012 <0.35 Final Comment: Class 0 (Negative <0.35) Test Performed by: [place] [address] Bark Grinder: Jordan Velazquez III, M.D. ? ? Hazelnut IgE 07/04/2012 <0.35 Final Comment: Class 0 (Negative <0.35) Test Performed by: [place] [address] Bark Grinder: Jordan Velazquez III, M.D. ? ? Macadamia Nut IgE 07/04/2012 <0.10 <0.35 kU/L Final Comment: Test Performed by: [facility] [address] [place], [place] [address] ??? Macadam Flag IgE 07/04/2012 0 Final Comment: This test was developed and its performance characteristics determined by the [facility]. It has not been cleared or approved by the FDA. Test Performed by: [facility] [address] [place] [address] ? ? Peanut IgE 07/04/2012 <0.35 Final Comment: Class 0 (Negative <0.35) Test Performed by: [place] [address] Bark Grinder: Jordan Velazquez III, M.D. ? ? Pecan IgE 07/04/2012 <0.35 Final Comment: Class 0 (Negative <0.35) Test Performed by: [place] [address] Bark Grinder: Jordan Velazquez III, M.D. ? ? [place] Nut IgE 07/04/2012 <0.35 Final Comment: Class 0 (Negative <0.35) Analyte Specific Reagent: This test was developed and its performance characteristics determined by [facility]. It has not been cleared or approved by the U.S. Food and Drug Administration. Test Performed by: [place] [address] Bark Grinder: Jordan Velazquez III, M.D. ? ? Pistachio IgE 07/04/2012 <0.35 Final Comment: Class 0 (Negative <0.35) Test Performed by: [place] [address] Bark Grinder: Jordan Velazquez III, M.D. ? ? [place] IgE 07/04/2012 <0.35 Final Comment: Class 0 (Negative <0.35) Test Performed by: [place] [address] Bark Grinder: Jordan Velazquez III, M.D. ??? IgE 07/04/2012 61.4 Final Comment: -- REFERENCE VALUE -- Mean 13.2 +1SD 41.0 +2SD 127.0 Test Performed by: [place] [address] Bark Grinder: Jordan Velazquez III, M.D. Ms. Noble was contacted with her test results. Her serum IgE levels to shellfish, vertebrae fish,tree nuts and peanuts were unremarkable. Her total serum IgE was normal. It is recommended that shecontinue to avoid shellfish. She may have a supervised oral challenge to vertebrae fish, tree nuts and peanuts because skin and serum testing were unremarkable. Patient advised to continue to avoid these foods until supervised oral challenge is completed in the allergy clinic. Only one food will bechallenged each day. She would like to have an oral challenge to peanuts. Advised to bring a jar ofpeanut butter and EpiPen to challenge. Advised to expect to be here about four hours. The patient was contacted with the test results and recommendations. The patient understood and agreed with what was discussed. All questions were answered. documented in this encounter Plan of Treatment Not on file documented as of this encounter Visit Diagnoses Not on filedocumented in this encounter Care Teams Costumed Character Relationship Specialty Start Date End Date Myesha Barnett MD [address] [place] [address] PCP - General 01/25/12 04/08/22 documented as of this encounter
--- OUTSIDE RECORDS SUMMARY | 2024-03-05 20:31 | XMS_ITS | Encounter Summary ---
Author Organization [facility] Address [address] [place] [address] Care Team Providers Care Oven Heater Helper Name Role Phone Unavailable Primary Care Provider Unavailabl e Encounter Details Date Type Department Care Team (Late st Contact Info) Description 08/06/2011 Results Only [facility] - [facility] [place] [place] [address] [place], [place] [phone] Malu Dias, [facility] [address] [place] [address] Social History Tobacco Use Types [...] Diagnosis Comments PAP TEST- RESULT ONLY Routine 08/06/2011 0:00 EDT documented in this encounter Results * PAP TEST- RESULT ONLY (08/06/2011 0:00 EDT) Pathology Report: CYTOPATHOLOGY REPORT Reports generated via electronic interface contain original data; however they are lacking the format of the original report. Caution should be taken when reading/interpreti ng unformatted reports. Name: ? LINDA NOBLE ? Accession #: ? [id number] ? : ? 1960 (Age: 51) ??F ?Collect Date: ? 08/06/2011 ? Location: ? [facility] ? Receive Date: ? 08/07/2011 ? Provider: MALU DIAS [facility] Copy to: SHERIDAN SOSA MD ? Final Report SPECIMEN ADEQUACY ? Satisfactory for Evaluation - transformation zone component present GENERAL CATEGORIZATION ? Negative for Intraepithelial Lesion or Malignancy ?? Hormonal/Contracep tive status: Intrauterine device: mirena Other: Additional clinical information: 09/10/08 pap negative Specimen/Source: ??Pap Test, Cervix/Endocervix, ThinPrep Imaging System with manual evaluation Document reviewed and electronically signed by: ? Rosanna Mora, [facility](ASCP) ? Report ??Date: 08/10/2011 15:14 HPV with Pap Test ? Date Ordered: ? 08/10/2011 ? Status: ?? Signed Out ?Date Complete: ? 08/14/2011 ? By: ??System Interface ? Date Reported: ? 08/14/2011 ? Interpretation RESULT: Negative for HPV. No E6 or E7 mRNA is detected from HPV types 16,18,31,33,35, 39,45,51,52,56,58, 59,66, and 68 by supervisor paint department mediated amplification. Comments Document reviewed and electronically signed by: ? System Interface ? Report date: 08/14/2011 By the signature above, the attending physician certifies that he/she has personally conducted a gross and/or microscopic examination of the described specimens and rendered or confirmed the above diagnosis. End of Report [facility] 08/06/2011 08/07/2011 Malu Dias STEREO MAP PLOTTER OPERATOR PATHOLOGY ORDERABLES Final R esult [facility] [address] [place] [address] documented in this encounter Visit Diagnoses Not on filedocumented in this encounter
--- OUTSIDE RECORDS SUMMARY | 2024-03-05 20:31 | XMS_ITS | Clinical Summary ---
Author Organization [facility] [place] [address] Care Team Providers Care Blister Packing Machine Tender Name Role Phone Heydi Melgar MD Primary Care Provider [phone] Allergies Active Allergy Reactions Criticality Noted Date Comments House Dust 06/25/2022 Dust mites Latex Medium 07/04/2012 Rash/hives breathing problems Shellfish Derived 06/25/2022 Other reaction(s): breathing, swelling Sulfa (Sulfonamide Antibiotics) Hives High 07/04/2012 Medications Medication Sig Dispensed Refills Start Date End Date Status metFORMIN (GLUCOPHAGE) 500 mg tablet Take 1,000 mg by mouth daily. Active atorvastatin (LIPITOR) 80 mg tablet Take 80 mg by mouth daily. Active glimepiride (AMARYL) 2 mg tablet Take 4 mg by mouth every morning (before breakfast). Active fluticasone (FLONASE) 50 mcg/actuation nasal spray 2 sprays by Each Nare route as needed. Active fluticasone (FLOVENT) 110 mcg/actuation inhaler Inhale 2 puffs into the lungs 2 times daily. Twice daily prn Active Levalbuterol Tartrate 45 mcg/actuation inhaler Inhale 1-2 puffs into the lungs every 6 hours as needed. Active triamcinolone (KENALOG) 0.1 % cream Apply topically as needed. Active loratadine (CLARITIN) 10 mg tablet Take 10 mg by mouth daily. Active albuteroL 90 mcg/actuation HFA Aerosol Inhaler Inhale 2 puffs into the lungs every 4 hours as needed. EVERY 4 TO 6 HOURS NEEDED 01/16/2022 Active insulin glargine (Lantus) 100 unit/mL (3 mL) pen 15 mL, INJECT 20-40 UNITS UNDER THE SKIN ONCE DAILY, 0 Refill(s) 03/02/2022 Active citalopram (CeleXA) 20 mg Tablet Take 20 mg by mouth daily. Active ibuprofen (Advil) 800 mg Tablet Take 800 mg by mouth every 8 hours as needed. 04/11/2022 Active BD Ultra-Fine Short Pen Needle 31 gauge x 5/16 Needle USE TO INJECT ONCE DIALY DIRECTED 06/15/2022 Active Januvia 100 mg Tablet Take 100 mg by mouth daily. 05/26/2022 Active aspirin EC 81 mg Tablet, Delayed Release (E.C.) Take 81 mg by mouth daily. Active Active Problems Problem Noted Date Diagnosed Date Shellfish allergy 09/30/2012 Adverse food reaction 09/30/2012 Asthma, mild intermittent, well-controlled 09/30 Allergic rhinoconjunctivitis 09/30/2012 Environmental allergies 09/30/2012 Family History Medical History Relation Comments Allergic Rhinitis Mother Asthma Mother Food Allergy Neg Hx Relation Status Comments Mother Social History Tobacco Use Types Packs/Day Years Used Date Smoking Tobacco: Never Smokeless Tobacco: Never Alcohol Use Standard Drinks/Week Comments No 0 (1 standard drink = 0.6 oz pur e alcohol) Sex and Gender Information Value Date Recorded Sex Assigned at Not on file Gender Identity Not on file Sexual Orientation Not on file Last Filed Vital Signs Vital Sign Reading Time Taken Comments Blood Pressure 140/68 06/25/2022 1:57 PM EST Pulse 79 06/25/2022 1:57 PM EST Temperature 36.9 ??C (98.4 ??F) 11/14/2012 4:06 PM ED T Respiratory Rate 16 11/14/2012 4:06 PM EDT Oxygen Saturation 98% 11/14/2012 4:06 PM EDT Inhaled Oxygen Concentration - - Weight 86.3 kg (190 lb 3.2 oz) 06/25/2022 1:57 P M EST Height 152.4 cm (5') 06/25/2022 1:57 PM EST Body Mass Index 37.15 06/25/2022 1:57 PM EST Plan of Treatment Health Maintenance Due Date Last Done Comments CT Colonography 1960 Colonoscopy 1960 Colorectal Cancer Screening 1960 FIT DNA 1960 FIT 1960 Sigmoidoscopy (10 year) with FIT yearly 1960 Sigmoidoscopy 1960 Pneumococcal Vaccine: At-Risk 5-64yrs (1 of 2 - PCV) 1 05/12/1965 HIV screen 1978 Hepatitis C Screening 1978 Tetanus/Diphtheria/Pertussis Vaccines (1 - Tdap) 03/12 HPV test 1990 PAP Smear 1990 Breast Cancer Share Decision Needed 2000 Breast Cancer screening 2000 Diabetes Screening (HgbA1C or Glucose) 2000 Zoster vaccine (1 of 2) 2010 Advance Directive 2015 Covid-19 Vaccine ( - season) 2023 Influenza (Flu) vaccine (1 o f 1 - Influenza standard series) 12/22/2023 Care Teams Blister Packing Machine Tender Relationship Specialty Start Date End Date Heydi Melgar MD [address] [place] [address] PCP - General Family Medicine 04/09/22
--- OUTSIDE RECORDS SUMMARY | 2024-03-05 20:31 | XMS_ITS | Encounter Summary ---
Author Organization [facility] Address [address] [place] [address] Care Team Providers Care Managed Care Analyst Name Role Phone Heydi Melgar MD Primary Care Provider [phone] Encounter Details Date Type Department Care Team (Late st Contact Info) Description 04/11/2022 Lab Requisition [facility] - [address] [address] [facility] [place] [address] Encounter for other general examination Social History [...] Priority Date/Time Associated Diagnosis Comments SURGICAL PATHOLOGY Today 04/11/2022 9: 52 EST Encounter for other general examination documented in this encounter Results * SURGICAL PATHOLOGY (04/11/2022 9:52 EST) Note to Patient The following pathology results have been interpreted by your pathologist and may be available to you before your health provider has had the opportunity to review them. Please allow time for your provider to receive these results and explore management options, if applicable. 04/18/2022 12:07 [facility] Final Diagnosis A. ENDOCERVIX, BIOPSY: - Benign ectocervical and squamous epithelium. B. ENDOMETRIUM, CURETTAGE: - Inactive endometrium. - Fragments of benign endocervical tissue. 04/18/2022 12:07 [facility] Attestation There was significant resident/fellow involvement in the diagnostic evaluation of this case. By the signature below, the attending physician certifies that they have personally conducted a gross and/or microscopic examination of the described specimens and rendered or confirmed the above diagnosis. 04/18/2022 12:07 [facility] at 1207 Clinical History Thickened endometrium; postmenopausal bleeding 04/18/2022 12:07 [facility] Gross Description A. Received in formalin labelled with proper patient identification (initials K, L) and endocervical curettings is an aggregate of dark brown hemorrhagic material that measures 0.5 x 0.4 x 0.1 cm. The specimen is submitted entirely in A1. B. Received in formalin labelled with proper patient identification (initials K, L) and endometrial curettings is an aggregate of salas and blood-tinged fragments of soft tissue that measures 1.1 x 0.9 x 0.4 cm. The specimen is submitted entirely in B1. TRACE FERRO 04/12/2022 5:17 04/18/2022 12:07 [facility] Resident/Niko w: Kirsten Aguayo MD PhD 04/18/2022 12:07 [facility] Performing Lab [facility] 04/18/2022 12:07 [facility] Scanned Images 04/18/2022 12:07 [facility] Tissue ENTIRE ENDOMETRIUM / Unknown 04/11/2022 9:52 EST 04/11/2022 16:52 EST Tissue specimen (specimen) ENDOMETRIAL STRUCTURE / Unknown 04/11/2022 9:52 EST 04/11/2022 16:52 EST [place] Jered PATHOLOGY ORDERABLES Final Resul t [facility] [address] [place] [address] documented in this encounter Visit Diagnoses Diagnosis Encounter for other general examination documented in this encounter Care Teams Managed Care Analyst Relationship Specialty Start Date End Date Heydi Melgar MD [address] [place] [address] PCP - General Family Medicine - Primary Care 03/22/22 documented as of this encounter
--- OUTSIDE RECORDS SUMMARY | 2024-03-05 20:31 | XMS_ITS | Encounter Summary ---
Author Organization [facility] Address [address] [place] [address] Care Team Providers Care Service Member Name Role Phone Unavailable Primary Care Provider Unavailabl e Encounter Details Date Type Department Care Team (Late st Contact Info) Description 08/13/2007 Results Only [facility] - [facility] [address] [place] [address] Jasmyn Bowman MD [address] [place] [address] [place] [address] Social History Tobacco Use Types Packs/Day Years [...] Date/Time Associated Diagnosis Comments SURGICAL PATHOLOGY Routine 08/13/2007 0:00 EDT documented in this encounter Results * SURGICAL PATHOLOGY (08/13/2007 0:00 EDT) Pathology Report: SURGICAL PATHOLOGY REPORT Reports generated via electronic interface contain original data; however they are lacking the format of the original report. Caution should be taken when reading/interpreti ng unformatted reports. Name: ? LINDA NOBLE ? Accession #: ? [id number] ? : ? 1960 (Age: 47) ??F ? Collect Date: ? 08/13/2007 ? Location: ? [facility] ? Receive Date: ? 08/13/2007 ? Provider: JASMYN BOWMAN MD Copy to: [employer] SHERIDAN SOSA MD ? Final Pathologic Diagnosis: ? Endometrium, biopsy: 1. ?? Secretory endometrium. 2. ?? Negative for hyperplasia/malign christian. Document reviewed and electronically signed by: Ann Batista MD Report ??Date: 08/14/2007 15:44 By the signature above, the attending physician certifies that he/she has personally conducted a gross and/or microscopic examination of the described specimens and rendered or confirmed the above diagnosis. Specimen(s) Received: ? Endometrial bx Clinical History: ? DUB, Pt on Provera; clinical diagnosis code: ??07/22/07; clinical diagnosis code: ??626.8 Gross Description: ? Received in formalin labelled Kimbell and endometrial bx is a 1.8 x 1.4 x 0.5 cm aggregate of dark brown hemorrhagic and salas-pink soft tissue, admixed with mucinous material. ??Submitted in toto as (A1) and (A2). ??(Donta Avendano/[facility] End of Report [facility] 08/13/2007 08/13/2007 15: 14 EDT us Jasmyn Bowman MD PATHOLOGY ORDERABLES Final Resu lt [facility] [address] [place] [address] documented in this encounter Visit Diagnoses Not on filedocumented in this encounter
--- OUTSIDE RECORDS SUMMARY | 2024-03-05 20:31 | XMS_ITS | Encounter Summary ---
Author Organization [facility] Address [address] [place] [address] Care Team Providers Care Catering Associate Name Role Phone Unavailable Primary Care Provider Unavailabl e Encounter Details Date Type Department Care Team (Late st Contact Info) Description 09/18/2007 Results Only [facility] - [place] [address] [place] [address] Jasmyn Bowman MD [address] [place] [address] [place] [address] Social History Tobacco Use Types Packs/Day Years [...] Date/Time Associated Diagnosis Comments SURGICAL PATHOLOGY Routine 09/18/2007 0:00 EDT documented in this encounter Results * SURGICAL PATHOLOGY (09/18/2007 0:00 EDT) Pathology Report: SURGICAL PATHOLOGY REPORT Reports generated via electronic interface contain original data; however they are lacking the format of the original report. Caution should be taken when reading/interpreti ng unformatted reports. Name: ? LINDA NOBLE ? Accession #: ? [id number] ? : ? 1960 (Age: 47) ??F ? Collect Date: ? 09/18/2007 ? Location: ? [facility] ? Receive Date: ? 09/18/2007 ? Provider: JASMYN BOWMAN MD Copy to: SHERIDAN SOSA MD ? Final Pathologic Diagnosis: ? Endometrium, curettage: 1. ?Proliferative endometrium with focal tubal metaplasia. 2. ? Fragments of benign endocervical tissue. Document reviewed and electronically signed by: IRASEMA WESTON MD Report ??Date: 09/19/2007 11:49 By the signature above, the attending physician certifies that he/she has personally conducted a gross and/or microscopic examination of the described specimens and rendered or confirmed the above diagnosis. Specimen(s) Received: ? Endometrial curettings Clinical History: ? Menorrhagia, LMP: 09/11/07 Gross Description: ? Received in formalin labelled Kimbell and endometrial curettings are multiple fragments of salas to hemorrhagic soft tissue which measure 4.0 x 3.0 x 0.5 cm in aggregate. ??The specimen is entirely submitted as (A1) to (A4). (Dr. Sanabria)/[facility] End of Report [facility] 09/18/2007 09/18/2007 15: 27 EDT us Jasmyn Bowman MD PATHOLOGY ORDERABLES Final Resu lt [facility] [address] [place] [address] documented in this encounter Visit Diagnoses Not on filedocumented in this encounter
--- OUTSIDE RECORDS SUMMARY | 2024-03-05 20:31 | XMS_ITS | Encounter Summary ---
Author Organization [facility] Address [address] [place] [address] Care Team Providers Care Office Administrative Assistant Name Role Phone Unavailable Primary Care Provider Unavailabl e Encounter Details Date Type Department Care Team (Late st Contact Info) Description 07/14/2003 Results Only [facility] - [place] conversion [address] [place] [address] Malu Dias, [facility] [address] [place] [address] Social History Tobacco Use Types [...] Priority Date/Time Associated Diagnosis Comments CYTOPATHOLOGY Routine 07/14/2003 0:00 EST documented in this encounter Results * CYTOPATHOLOGY (07/14/2003 0:00 EST) Pathology Report: CYTOPATHOLOGY REPORT Reports generated via electronic interface contain original data; however they are lacking the format of the original report. Caution should be taken when reading/interpreti ng unformatted reports. Name: ? LINDA NOBLE ? Accession #: ? [id number] : ? 1960 (Age: 43) ??F ?Collect Date: ? 07/14/2003 Location: ? [facility] ? Receive Date: ? 07/16/2003 Provider: ?MALU DIAS PERSONAL SECURITY SPECIALIST Copy to: ? Specimen/Source: ?ThinPrep Pap Test, Cervix/Endocervix Last Menstrual Period: ? 06/29/2003 Other: ? HPVA - HPV testing requested if ASC-US on the current ThinPrep Pap test. ? SPECIMEN ADEQUACY ? Satisfactory for Evaluation - transformation zone component present - scant squamous epithelial component secondary to excessive blood GENERAL CATEGORIZATION ? Other, see interpretation INTERPRETATION ? Endometrial cells present in a woman equal to or greater than age 40. Negative for Intraepithelial Lesion or Malignancy. ? COMMENT ? Benign appearing endometrial cells on Pap tests are usually a normal finding in women with regular menstrual cycles, especially if the Pap was collected during the first half of the menstrual cycle. ??There is data showing that endometrial cells on Pap tests may be associated with endometrial/uterin e abnormalities in post menopausal women or in premenopausal women with abnormal bleeding. ??There is limited data on the significance of benign endometrial cells in post menopausal women on HRT. ??Clinical correlation is recommended. Note: ?? The Pap test is not an accurate test for the screening of endometrial lesions and should not be used as a follow up in patients with clinical suspicion of endometrial pathology. ? Document reviewed and electronically signed by: ? FLORENTIN Brown(ASCP) ? Report Date: ??07/21/2003 15:11 End of Report [facility] 07/14/2003 07/16/2003 us Malu Dias PERSONAL SECURITY SPECIALIST PATHOLOGY ORDERABLES Final R esult [facility] [address] [place] [id number] documented in this encounter Visit Diagnoses Not on filedocumented in this encounter
--- OUTSIDE RECORDS SUMMARY | 2024-03-05 20:31 | XMS_ITS | Encounter Summary ---
Author Organization [facility] Address [address] [place] [address] Care Team Providers Care Fermenter Helper Name Role Phone Unavailable Primary Care Provider Unavailabl e Encounter Details Date Type Department Care Team (Late st Contact Info) Description 08/06/2003 Results Only [facility] - [place] conversion [address] [place] [address] Jasmyn Bowman MD [address] [place] [address] [place] [address] Social History Tobacco Use Types Packs/Day Years [...] Date/Time Associated Diagnosis Comments SURGICAL PATHOLOGY Routine 08/06/2003 0:00 EDT documented in this encounter Results * SURGICAL PATHOLOGY (08/06/2003 0:00 EDT) Pathology Report: SURGICAL PATHOLOGY REPORT Reports generated via electronic interface contain original data; however they are lacking the format of the original report. Caution should be taken when reading/interpreti ng unformatted reports. Name: ? LINDA NOBLE ? Accession #: ? [id number] ? : ? 1960 (Age: 43) ??F ? Collect Date: ? 08/06/2003 ? Location: ? [facility] ? Receive Date: ? 08/09/2003 ? Provider: JASMYN BOWMAN MD Copy to: [employer] SHERIDAN SOSA MD ? Final Pathologic Diagnosis: ? Endometrium, biopsy: - Weakly proliferative endometrium with tubal metaplasia. Document reviewed and electronically signed by: BRADY KAPOOR MD Report ??Date: 08/11/2003 18:41 By the signature above, the attending physician certifies that he/she has personally conducted a gross and/or microscopic examination of the described specimens and rendered or confirmed the above diagnosis. Specimen(s) Received: ? Endometrial bx tissue Clinical History: ? DUB; clinical diagnosis code: 626.8 Gross Description: ? Received in formalin labelled Kimbell and endometrial bx is a collection of brown-red, hemorrhagic soft tissue, which measures 1.0 x 1.0 x 0.3 cm in aggregate. ??Submitted entirely in one cassette. ??(Dr. Carrillo)/[facility] End of Report [facility] 08/06/2003 08/09/2003 15: 16 EDT us Jasmyn Bowman MD PATHOLOGY ORDERABLES Final Resu lt [facility] [address] [place] [address] documented in this encounter Visit Diagnoses Not on filedocumented in this encounter
--- OUTSIDE RECORDS SUMMARY | 2024-03-05 20:31 | XMS_ITS | Continuity of Care Document ---
Author Organization [facility] Address [address] [place] [address] Care Team Providers Care Cook Helper Name Role Phone DUSTINANDREW LEIVA Primary Care Physician Encounter [facility] FIN NBR [id number] Date(s): 10/03/22 - 10/03/[address] [address] Discharge Disposition: Home or Self Care Attending Physician: Melodie Berry APRN Admitting Physician: Melodie Berry APRN Referring Physician: Melodie Berry APRN Allergies, Adverse Reactions, Alerts Substance Reaction Severity Status sulfa drugs Wheal Mild Active sulfa topicals Wheal Mild Active Seafood breathing, swelling Moderate Active Latex asthma attack Severe Active Shell fish Wheal Mild Active Assessment and Plan Future Appointments Medications !-Aspir 81 oral delayed release tablet 81 mg = 1 tab, Oral, Daily, 0 Refill(s) Start Date: 09/27/22 Status: Ordered citalopram 20 mg oral tablet 20 mg = 1 tab, Oral, every night at bedtime, 0 Refill(s) Start Date: 09/27/22 Status: Ordered Flovent HFA 110 mcg/inh inhalation [...] A DAY Start Date: 09/27/22 Status: Ordered Problem List Condition Confirmation Course [...] Procedure Date Related Diagnosis Body Site Status section Complete d Cholecystectomy Completed Colonoscopy Completed Echocardiography, , car diovascular system, real time with image documentation (2D), with or without M-mode recording; Completed EGD - Esophagogastroduodenoscopy Completed Hysteroscopy Completed Ultrasound guided transcervi nia radiofrequency ablation of uterine fibroid Completed Results Laboratory List Name Date CBC w/ Diff 10/03/22 Comprehensive Metabolic Panel (CMP) 10/03 Staph Nasal Complete (GeneXpert) 10/03/22 Urinalysis with Micro if Indicated and C ulture if Indicated 10/03/22 Automated Diff 10/03/22 Most recent to oldest [Reference Range]: 1 WBC [4.8-10.8 K/mcL] 11.5 K/mcL *HI* (10/03/22 11:15 AM) RBC [4.20-5.40 Million/mcL] 4.30 Million /mcL (10/03/22 11:15 AM) Neutro Auto [42.2-75.2 %] 55.7 % (10/03/22 11:15 AM) Lymph Auto [20.5-51.1 %] 34.7 % (10/03/22 11:15 AM) Lanier Auto [1.7-9.3 %] 4.9 % (10/03/22 11:15 AM) Basophil Auto [0.0-0.8 %] 0.8 % (10/03/22:15 AM) BUN [8-26 mg/dL] 22 mg/dL (10/03/22:15 AM) UA Color [Yellow] Yellow (10/03/22 AM) Glucose Level [74-106 mg/dL] 99 mg/dL (10/03/2215 AM) Potassium Level [3.5-5.1 mmol/L] 4.3 mmo l/L (10/03/2215 AM) Baso Absolute [0.0-0.2 K/mcL] 0.1 K/mcL (10/03/2215 AM) MCV [81.0-99.0 fL] 91.9 fL (10/03/22:15 AM) UA Urobilinogen [0.2] 0.2 (10/03/22 AM) UA Bili [Negative] Negative (10/03/22 AM) UA Ketones [Negative] Negative (10/03/22:15 AM) AST [15-41 IntlUnit/L] 72 IntlUnit/L *HI* (10/03/2215 AM) ALT [14-54 IntlUnit/L] 150 IntlUnit/L *HI* (10/03/22:15 AM) MCHC [32.0-36.0 g/dL] 32.7 g/dL (10/03/22 AM) Osmolality [275-295 mOsm/kg] 279 mOsm/kg (10/03/22:15 AM) Sodium Level [134-143 mmol/L] 138 mmol/L (10/03/22 11:15 AM) UA Leuk Est [Negative] Negative (10/03/22 AM) Lymph Absolute [1.2-3.4 K/mcL] 4.0 K/mcL *HI* (10/03/22:15 AM) UA Nitrite [Negative] Negative (10/03/2215 AM) UA Glucose [Negative] Negative (10/03/2215 AM) Hct [37.0-47.0 %] 39.5 % (10/03/22 11:15 AM) Calcium Level [8.9-10.3 mg/dL] 10.1 mg/d L (10/03/22 11:15 AM) Lanier Absolute [0.1-0.6 K/mcL] 0.6 K/mcL (10/03/22 11:15 AM) Albumin Level [3.5-5.0 g/dL] 4.0 g/dL (10/03/22 11:15 AM) Protein Total [6.5-8.1 g/dL] 7.3 g/dL (10/03/22 11:15 AM) UA Protein [Negative] Negative (10/03/22 AM) MCH [27.0-31.0 pg] 30.0 pg (10/03/22:15 AM) Neutro Absolute [1.4-6.5 K/mcL] 6.4 K/mc L (10/03/22:15 AM) Bilirubin Total [0.2-1.2 mg/dL] 0.6 mg/d L (10/03/22 11:15 AM) Hgb [12.0-16.0 g/dL] 12.9 g/dL (10/03/22 11:15 AM) Alk Phos [38-130 IntlUnit/L] 69 IntlUnit /L (10/03/22 11:15 AM) UA Blood [Negative] Negative (10/03/22 11:15 AM) MPV [7.4-10.4 fL] 9.9 fL (10/03/22 11:15 AM) UA Spec Grav 1.015 *NA* (10/03/22:15 AM) Platelets [130-400 K/mcL] 366 K/mcL (10/03/22 11:15 AM) CO2 [22-32 mmol/L] 27 mmol/L (10/03/22 11:15 AM) Eos Absolute [0.0-0.2 K/mcL] 0.4 K/mcL *HI* (10/03/22 11:15 AM) UA pH 5.00 *NA* (10/03/22:15 AM) UA Appear [Clear] Slightly Cloudy *ABN* (10/03/22 11:15 AM) Chloride Level [98-111 mmol/L] 100 mmol/ L (10/03/22 11:15 AM) RDW-CV [11.5-14.5 %] 13.1 % (10/03/22 11:15 AM) A/G Ratio 1.2 *NA* (10/03/22 11:15 AM) BUN/Creat Ratio [8.0-20.0] 34.4 *HI* (10/03/22 11:15 AM) Globulin 3.3 *NA* (10/03/22 11:15 AM) Imm Gran Absolute 0.08 *NA* (10/03/22 11:15 AM) Imm Gran Auto [0.0-0.5 %] 0.7 % *HI* (10/03/22 11:15 AM) MRSA Screen -GeneXpert [Negative] Negati ve (10/03/22 11:15 AM) Slide Review Not Indicated (10/03/22 11:15 AM) Urine Srce Clean Catch (10/03/22 11:15 AM) MSSA Screen -GeneXpert [Negative] Negati ve (10/03/22 11:15 AM) Creatinine Level [0.44-1.00 mg/dL] 0.64 mg/dL (10/03/22 11:15 AM) Anion Gap [3.0-12.0] 11.0 (10/03/22 11:15 AM) Eos, Auto [0.00-3.00 %] 3.20 % *HI* (10/03/22 11:15 AM) eGFR CKD-EPI [>=60 mL/min/1.73 m2] 100 m L/min/1.73 m2 (10/03/22 11:15 AM) Social History Social History Type Response Tobacco Never tobacco user T obacco Use:. Sex Patient Care team information Care Team Personnel Name: ANDREW CHAN Position: No Access Member Role: Primary Care Physician Address: Address: [facility] [address] [place] [address]- Care Team Related Persons Name: TONI MÉNDEZ
--- OUTSIDE RECORDS SUMMARY | 2024-03-05 20:31 | XMS_ITS | Encounter Summary ---
Author Organization [facility] [place] [address] Care Team Providers Care Temporary Help Agency Referral Clerk Name Role Phone Heydi Melgar MD Primary Care Provider [phone] Reason for Referral * Diagnostic Test (Routine) - Closed Specialty Diagnoses / Procedures Referred By Contac t Referred To Contact Radiology Diagnoses Facial paresthesia Neck pain on left side Procedures MRI Cervical Spine wwo Contrast Magnolia Ken MD [facility] [place] [address] [place] [address] Referral ID Status Reason Start Date Expiration Date V isits Requested Visits Authorized [id number] Closed Specialty Service Requested 04/09/2022 10/09/2023 1 1 * Diagnostic Test (Routine) - Closed Specialty Diagnoses / Procedures Referred By Contac t Referred To Contact Radiology Diagnoses Facial paresthesia Neck pain on left side Procedures MRI Brain wwo Contrast (Generic) Magnolia Ken MD [facility] [place] [address] [place] [address] [place] [address] Referral ID Status Reason Start Date Expiration Date V isits Requested Visits Authorized [id number] Closed Specialty Service Requested 04/09/2022 10/09/2023 1 1 Reason for Visit * Consultation (Routine) - Closed Specialty Diagnoses / Procedures Referred By Yasmeen page Referred To Contact Neurology Diagnoses Facial paresthesia Heydi Melgar MD [address] [place] [address] [facility] [address] [place] [address] Referral ID Status Reason Start Date Expiration Date V isits Requested Visits Authorized [id number] Closed Consult, Test & Treat PCP Updated and/or Approved 11/15/2021 11/15/2022 6 6 Encounter Details Date Type Department Care Team (Late st Contact Info) Description 04/09/2022 1:00 PM [place] [address] Magnolia Ken MD [facility] [place] [address] Facial paresthesia; Neck pain on left side Social History Tobacco Use Types Packs/Day Years [...] Sign Reading Time Taken Comments Blood Pressure 129/64 04/09/2022 12:51 PM EST Pulse 81 04/09/2022 12:51 PM EST Temperature - - Respiratory Rate - - Oxygen Saturation - - Inhaled Oxygen Concentration - - Weight 86.2 kg (190 lb) 04/09/2022 12:51 PM EST Height 154.9 cm (5' 1) 04/09/2022 12:51 PM EST Body Mass Index 35.9 04/09/2022 12:51 PM EST documented in this encounter Progress Notes * Magnolia Ken MD - 04/09/2022 1:00 PM EST [facility] Note Patient name: Linda Noble Date of : 1960 Referring Provider: Heydi Melgar MD [address] [place] [address] Background: Linda Noble is a 62 y.o. woman with a history of migraines, diabetes type II, environmental allergies, asthma, anxiety, referred for further evaluation of left facial decreased sensation. Subjective: Patient is unaccompanied to the visit. She started having left facial decreased sensation in the early fall 2020. At that time, she was referred for cardiac evaluation which was negative. Since then, she has had intermittent symptoms. At onset, the symptoms were consistent and persistent, with decreased sensation along the bottom of thejaw and down the upper neck. She went to a chiropractor for neck adjustments. Her dentist checked her for TMJ. Currently, the symptoms are intermittent. At the onset of the symptoms she was having quite a bit of anxiety and was started on citalopram. Currently, the symptoms are also involving the upper jaw and this fall she started to have decree sensation around the corner of the left eye. There is numbness but no tingling. The symptoms seem to come and go, however she is more aware of the symptoms at certain times, for instance when she is working. 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 She is on the phone quite a bit of time during theday and leans her head to the right against the phone to hold it in place. The symptoms lasted minutes to hours. There are no other associated neurologic symptoms, including weakness extremity numbness or tingling, gait imbalance, difficulty swallowing, diplopia. She reports her eye often feels dry on the left she has allergies and rhinitis quite frequently. The symptoms are not elicited by any particular movements. Medications were reviewed she has diabetes and her A1c typically runs in the the sixes. She has occasional blurring of vision which she attributes to blood sugar changes. She is due for her annual eye exam in June. No ticks or rashes. Out in the mata a lot. No recent illnesses. Had tested positive for COVID thisfall but not at the time of symptom onset. No medication changes prior to developing symptoms asidefrom Levemir being changed to Lantus. Currently, episodes are happening 1-2 tines per week. At this point the symptoms are not interfering with her daily activities. No changes in hearing, left ear has always been less than the right. Noear fullness. No ear pain. She has a history of persistent neck pain. She has tightness in the neckcurrently. Vertebral issues were noted on previous imaging obtained when she had diverticulosis several years ago. BP usually ~120 systolics. Strong hx of diabetes and cardiac issues in her family. No history of neurologic issues in the family. She does not smoke. She rarely drinks alcohol. No illicit drug use. She is moderately physically active, walks. Up to date on cancer screenings, breast and colonoscopy due 2022. Past Medical History: Diagnosis Date ??? Allergic rhinitis ??? Asthma Family History Problem Relation Age of Onset ??? Asthma Mother ??? Allergic Rhinitis Mother ??? Food Allergy Neg Hx Social History Social History Narrative ??? Not on file Outpatient Encounter Medications as of 04/09/2022 Medication Sig Dispense Refill ??? albuteroL 90 mcg/actuation HFA Aerosol Inhaler [...] Take 1,000 mg by mouth daily. ??? Levalbuterol Tartrate 45 mcg/actuation inhaler Inhale 1-2 puffs into the lungs every 6 hours asneeded. ??? loratadine (CLARITIN) 10 mg tablet Take 10 mg by mouth daily. ??? atorvastatin (LIPITOR) [...] 2 times daily. Twice daily prn ??? triamcinolone (KENALOG) 0.1 % cream Apply topically 2 times daily. ??? epiNEPHrine (EPIPEN) 0.3 mg/0.3 mL (1:1,000) injection Inject 0.3 mLs into the muscle once as needed (difficulty breathing, throat swelling, loss of consciousness) for 1 dose. Call 911. (Patient not taking: Reported on 04/09/2022) 2 each 1 No facility-administered encounter medications on file as of 04/09/2022. Allergies Allergen Reactions ??? Latex Rash/hives breathing problems ??? Sulfa (Sulfonamide Antibiotics) Hives Objective: Vitals: Temp: -- Heart Rate: [81] Resp: -- BP: (129)/(64) SpO2: -- Heart Rate from SpO2: -- [...] sensation intact in all 3 trigeminal distributions bilaterally. Decreased sensation in left V1, V2, V3, mildly decreased in V1, moderately decreased in V2 and V3. CN VII - No facial asymmetry CN VIII - Hearing intact to finger rub, baseline decrease in left compared to right (x20 years) CN IX, X - Palate symmetrically elevates, uvula midline CN XI - Trapezius, SCM 5/5 bilat CN XII - Tongue midline Motor: Normal bulk and tone. (-)Pronator drift BL UE: 5/5 R, 5/5 L Arm abduction at shoulder 5/5 R, 5/5 L Elbow extension 5/5 R, 5/5 L Elbow flexion 5/5 R, 5/5 L Finger flexion 5/5 R, 5/5 L Health And Human Performance Professor 5/5 R, 5/5 L Thumb flexion LE: 5/5 R, 5/5 L Hip flexion 5/5 R, 5/5 L Knee extension 5/5 R, 5/5 L Knee flexion 5/5 R, 5/5 L Foot dorsiflexion 5/5 R, 5/5 L Foot plantar flexion Reflexes: DTRs 1+ R, 1+ L Biceps 1+ R, 1+ L Brachioradialis 1+ R, Tr L Triceps 2+ R, 2+ L Patellar 2+ R, 2+ L Achilles tendon Plantar R toes downgoing, L toes downgoing Sensation in the extremities: Intact to light touch, temperature, and vibration Cerebellar exam: No ataxia or dysmetria on finger to nose, no ataxia heel to long No abnormal movements. No resting tremor Gait: Normal, able to do tandem gait Assessment: Linda Noble is a 62 y.o. woman with a history of HLD, diabetes, seasonal allergies, asthma who is referred to neurology clinic for further evaluation of left hemifacial decreased sensation. The decreased sensation is more pronounced in the V2 and V3 trigeminal distributions as compared to V1, which is also involved. There is decreased sensation to light touch and pinprick. Potential etiologies for this symptom include small vessel ischemic disease or stroke affecting the trigeminal nucleus or brainstem where the trigeminal nerve travels. There is no history of infectious or inflammatory pathology at present, though if MRI imaging is normal we can consider a lumbar puncture, particularly if there is a progression of symptoms to involve numbness in other areas or further neurologic symptoms. We will pursue an MRI of the brain with thin cuts through the brainstem to rule out mass lesion or other pathology. We will also obtain an MRI of the cervical spine because the numbness extends down the neck. Otherwise, her neurologic exam is reassuringly unremarkable. Plan: -MRI Brain wwo contrast, thin cuts through brainstem Follow up after MRI. Magnolia Ken MD Personal pager #[phone] 04/09/2022 50 minutes of the visit were spent [id number] with the patient obtaining history, performing exam, and in counseling. 10 minutes were spent on day of visit reviewing previous documentation, studies, and in documentation. documented in this encounter Plan of Treatment Not on file documented as of this encounter Results * MRI Cervical Spine [...] are benign. To avoid unnecessary evaluation the [employer] recommends the following for [...] who have questions please contact the health care aid that requested your imaging first. ? Electronically signed by: Nona Correia MD, 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 ?eval for radiculoapthy, inflammatory or other lesions (accession [id number]) TECHNIQUE: MRI of the head/face with trigeminal [...] SPINE WWOCONTRAST CLINICAL HISTORY: Neuro deficit, persistent/recurrent, SHAPER SET UP OPERATOR neoplasmsuspected; 62 yo F with hx of L trigeminal and neck episodic numbness; thin cutsthrough brainstem 62 yo F with hx of L trigeminal and neck episodic numbness; thin cutsthrough brainstem (accession [id number]), 62 yo F with hx of neck/facial numbness onleft, 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 To avoid unnecessary evaluation the [employer]recommends the following for ITNs [...] patients who have questions please contactthe health care aid that requested your imaging first. Electronically signed by: Nona Correia MD, [facility]([phone]), at 06/13/2022 10:49 AM Magnolia Ken MD IMG MRI ORDERABLES * MRI Brain wwo Contrast [...] are benign. To avoid unnecessary evaluation the [employer] recommends the following for [...] who have questions please contact the health care aid that requested your imaging first. ? Electronically signed by: Nona Correia MD, 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, inflammatory or other lesions (accession [id number]) TECHNIQUE: MRI of the head/face with trigeminal [...] SPINE WWOCONTRAST CLINICAL HISTORY: Neuro deficit, persistent/recurrent, SHAPER SET UP OPERATOR neoplasmsuspected; 62 yo F with hx of L trigeminal and neck episodic numbness; thin cutsthrough brainstem 62 yo F with hx of L trigeminal and neck episodic numbness; thin cutsthrough brainstem (accession [id number]), 62 yo F with hx of neck/facial numbness onleft, 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 To avoid unnecessary evaluation the [employer]recommends the following for ITNs [...] patients who have questions please contactthe health care aid that requested your imaging first. Electronically signed by: Nona Correia MD, [facility]([phone]), at 06/13/2022 10:49 AM Magnolia Ken MD IMG MRI ORDERABLES documented in this encounter Visit Diagnoses Diagnosis Facial paresthesia Neck pain on left side Cervicalgia Facial paresthesia Neck pain on left side Cervicalgia documented in this encounter Care Teams Temporary Help Agency Referral Clerk Relationship Specialty Start Date End Date Heydi Melgar MD [address] [place] [address] PCP - General Family Medicine 04/09/22 documented as of this encounter
== END 2024-03-05 20:25 | disposition home or self-care (01) ==
LOC: NCHCN 20:24
PROVIDERS: PCP Family Medicine; Visit Provider Family Medicine
DX: E78.5 Hyperlipidemia, unspecified (principal); E11.9 Type 2 diabetes mellitus without complications; Z00.00 Encounter for general adult medical examination without abnormal findings
CPT/HCPCS: 80053; 80061; 83721; 85027; 83036

== ENCOUNTER 2025-01-29 13:50 | Outpatient (CLI) | payer OTHER, SELFPAY ==
--- NOTE | 2025-01-29 13:45 | RT.EKG_ITS ---
APPROVED REPORT Exam: Resting ECG Reason for Exam: back pain Patient Location: O HR:78 bpm ECG Measurements Heart Rate 78 AXIS ME 145 P 70 QRSd 100 QRS -7 QT 411 T 41 QTc 469 Conclusion Sinus rhythm...normal P axis, V-rate 50- 99 Normal Electrocardiogram
== END 2025-01-29 13:51 | disposition home or self-care (01) ==
LOC: DI.CM 13:51
PROVIDERS: PCP Family Medicine; Visit Provider Nurse Practitioner Family
DX: M54.9 Dorsalgia, unspecified (principal)
CPT/HCPCS: 93010

== ENCOUNTER 2025-01-29 14:35 | Emergency (ER) | payer OTHER, SELFPAY ==
--- NOTE | 2025-01-29 14:30 | RT.EKG_ITS ---
APPROVED REPORT Exam: Resting ECG Reason for Exam: cardiac event Patient Location: E HR:81 bpm ECG Measurements Heart Rate 81 AXIS HI 143 P 49 QRSd 93 QRS -12 QT 390 T 37 QTc 455 Conclusion Sinus rhythm...normal P axis, V-rate 60- 99
[2025-01-29 14:37] VITALS: BP 136/80; PULSE 82; RESP 16; TEMP 36.6; O2SAT 98
--- NOTE | 2025-01-29 14:47 | W.ED.GENAD ---
Discharge Plan Disposition Patient Disposition: Home Condition: Stable Discharge Details Clinical Impression: Chest pain, Back pain Primary Care Provider: Heydi Melgar ED Provider: Brock Pope Home Meds and New Rx's Prescriptions: New valacyclovir 1 gram tablet 1,000 mg PO TID Qty: 21 0RF Continued multivitamin [Daily Multi-Vitamin] Tablet 1 tab PO DAILY citalopram 20 mg tablet 20 mg PO DAILY Levemir FlexPen 100 unit/mL (3 mL) insulin pen 22 unit subcut QHS insulin glargine [Lantus Solostar U-100 Insulin] 100 unit/mL (3 mL) insulin pen 22 unit subcut QAM aspirin [Aspir-81] 81 MG tablet,delayed release (DR/EC) 81 mg PO DAILY metformin [Glucophage] 1,000 mg tablet 500 mg PO DAILY Patient Comments: pt reports 2 tablets in AM and PM albuterol 90 mcg/actuation Aerosol INHALATION Patient Comments: pt. unsure of dose albuterol sulfate [Ventolin HFA] 90 mcg/actuation Hfa Aerosol Inhaler 2 INHALATION BID ibuprofen 800 mg tablet 800 mg PO Q8H PRNQty: 30 0RF Discharge Instructions Additional Instructions: Your blood work and CAT scan did not show any emergent findings. Your thyroid is enlarged based on the CAT scan, you can let your primary care know about this when you follow-up with them and they may order further testing such as an ultrasound. I am to give you a paper prescription for the antiviral medication valacyclovir, if you develop a rash similar to your prior shingles I would recommend starting this. If you not improving this week follow-up with primary care provider. If you feel significantly more ill or have new symptoms such as persistent vomiting return to emergency department for reevaluation. HPI General Mode of arrival: ambulatory. Date/Time Provider Initiated Documentation: 01/29/25 14:36. Limitations to Documentation: no limitations. Information obtained by: patient. History of Present Illness 64 year old F presents to the emergency department with the chief complaint of left back/chest pain, described as moderate, Quality is described as sharp, and is localized to the chest and back. Patient started experiencing this hour(s) (36) and it has been constant. No relieving factors improve symptom(s), No exacerbating factors reported . Patient notes denies fever/chills. Patient did receive the following treatments prior to arrival, NSAID Related Data Home Medications ?Medication ?Instructions ?Recorded ?Confirmed aspirin 81 mg tablet,delayed 81 mg PO DAILY 07/02/17 01/29/25 release (Aspir-) citalopram 20 mg tablet 20 mg PO DAILY 07/06/21 01/29/25 metformin 1,000 mg tablet 500 mg PO DAILY 07/06/21 01/29/25 (Glucophage) multivitamin (Daily Multi-Vitamin 1 tab PO DAILY 07/06/21 01/29/25 tablet) albuterol 90 mcg/actuation aerosol mcg inhalation 04/11/22 06/06/22 inhaler albuterol sulfate 90 mcg/actuation 2 inhalation BID 04/11/22 06/06/22 aerosol inhaler (Ventolin HFA) ibuprofen 800 mg tablet 800 mg PO Q8H PRN #30 tabs 04/11/22 01/29/25 insulin detemir U-100 100 unit/mL 22 unit subcut QHS 07/10/23 01/29/25 (3 mL) subcutaneous pen (Levemir FlexPen) insulin glargine 100 unit/mL (3 22 unit subcut QAM 11/19/23 01/29/25 mL) subcutaneous pen (Lantus Solostar U-100 Insulin) valacyclovir 1 gram tablet 1,000 mg PO TID #21 tabs 01/29/25 Previous Rx's ?Medication ?Instructions ?Recorded ibuprofen 800 mg tablet 800 mg PO Q8H PRN #30 tabs 04/11/22 valacyclovir 1 gram tablet 1,000 mg PO TID #21 tabs 01/29/25 Allergies Allergy/AdvReac Type Severity Reaction Status Date / Time latex Allergy Severe Anaphylaxis Verified 01/29/25 14:42 Sulfa (Sulfonamide Allergy Intermediate Hives Verified 01/29/25 14:42 Antibiotics) oxycodone Allergy Skin Rash Unverified 01/29/25 14:42 seafood Allergy Severe breathing, Uncoded 01/29/25 14:42 swelling General Stated Complaint: Chest Pain AVTAR: 3 Review of Systems All systems reviewed & are unremarkable except as noted in HPI and below Constitutional Constitutional: Denies chills, Denies fever(s) and Denies weakness Cardiovascular Cardiovascular: Reports chest pain and Denies dyspnea Respiratory Respiratory: Denies cough and Denies dyspnea Gastrointestinal Gastrointestinal: Denies abdominal pain, Denies nausea and Denies vomiting Musculoskeletal Musculoskeletal: Reports back pain Neurologic Neurologic: Denies weakness Exam Const General: no acute distress Orientation: alert HENMD Head: normal to inspection Ears: external ears normal General nose exam: external nose normal Mouth: moist mucous membranes Eyes General: appearance normal, both eyes and all related structures Neck Neck: normal visual inspection Chest Chest: normal inspection of the chest Resp Effort & Inspection: normal respiratory effort and able to speak in complete sentences Auscultation: clear to auscultation bilaterally Cardio Jugular venous pressure: no JVD Rate: regular rate Heart Sounds: no murmurs GI Palpation: soft and nontender Skin General skin exam: no rashes or lesions noted Neuro General: patient alert and patient oriented x3 Extrem General: normal to inspection Psych Mental Status: mental status grossly normal Course Vital Signs Vital signs: Vital Signs Temperature 36.6 C 01/29/25 14:37 Pulse 82 01/29/25 14:37 Respiratory Rate 16 01/29/25 14:37 Blood Pressure 136/80 01/29/25 14:37 Pulse Oximetry 98 01/29/25 14:37 Temperature 36.6 C 01/29/25 14:37 Pulse 82 01/29/25 14:37 Respiratory Rate 16 01/29/25 14:37 Blood Pressure 136/80 01/29/25 14:37 Pulse Oximetry 98 01/29/25 14:37 Pain Level 6 01/29/25 14:37 Medical Decision Making 64-year-old female with a history of diabetes, comes in with left-sided back and chest pain that started 36 hours ago. She thought it was a muscle strain so was taking NSAIDs which has helped the pain. Denies any vomiting, fevers, chills. She says she did have chickenpox as a kid and had shingles a year ago on the left side of her abdomen. She is amatory and arrival in no distress. She says that taking deep breaths sometimes makes the pain worse otherwise does not have pain with exertion. She has no rashes, she localizes the pain as a dermatomal distribution starting in the left mid back and going towards the left lateral chest. She has no JVD, no leg swelling, no abdominal tenderness. I suspect she could be having the onset of shingles or musculoskeletal pain but will check CBC CMP and troponins and given her pleuritic nature of her pain we will obtain a CTA to evaluate for PE. She has no tearing back pain to suggest dissection. Labs including delta troponin unremarkable and CTA also shows no acute findings, she had mild elevation of her lipase which I added on CT abdomen pelvis which did not show any evidence of pancreatitis on CT or other concerning findings. She does have enlarged thyroid which I informed her open she will follow-up with her PCP. I will give her paper prescription for valacyclovir in case she develops a rash consistent with shingles. She will follow-up with her PCP and return precautions given Differential Diagnosis Differential Diagnosis: shingles, PE, acs Medical Records Medical records reviewed: Yes I reviewed the patient's medical records. Lab Data Lab results reviewed: Yes I reviewed the patient's lab results. ECG Data Attestation: I personally reviewed and interpreted this ECG (s) as follows: Prior ECG tracings: available for review Interpretation: sinus rate of 81 no stemi PFSH All Active Problems (Updated 01/29/25 @ 16:42 by Brock Pope MD) Back pain (Acute) Chest pain (Acute) S/P dilation and curettage (Acute) Lichen sclerosus (Acute 09/21/13) Fibroid uterus (Acute 09/21/13) Elevated lipids (Acute 09/21/13) Diabetes (Acute 09/21/13) Diverticulosis (Acute) Post-menopausal bleeding (Acute) Medical History Asthma (09/21/13) Toxic colitis (~2019) Hx of chronic arthritis R knee, has had injections Numbness of face pt. saw neurologist this past saturday, questioning bone spur? going for MRI, no droop to face Surgical History Hx of colonoscopy Hx of cholecystectomy section Endometrial Ablation 2007 Family History Mother Diabetes Breast cancer Social History Smoking/Tobacco Use Status: Never Smoking risk assessment performed?: Yes Alcohol Intake: never Drug use: Never Substance use type: does not use Do you feel safe at home: Yes Do you feel safe in your relationship?: Yes History History 3 Para 3 Hx # Term Pregnancies Multiple births Hx # Pregnancies Ectopic pregnancies AB induced Hx Number of Living Children AB spontaneous
[2025-01-29 14:57] LABS: Abs Immature Grans 0.12 10^3/uL (0.0-0.06); HCT 37.4 % (36.0-46.0); HGB 12.7 g/dL (11.2-15.7); Immature Grans % 1.0 %; MCH 30.2 pg (27.0-33.0); MCHC 34.0 % (32.0-36.0); MCV 89 fL (80-95); MPV 9.9 fL (8.0-11.0); Platelet Count 316 10^3/uL (130-400); RBC 4.21 10^6/uL (3.93-5.22); RDW 12.6 % (11.7-14.6); RDW-SD 41.4 fL; WBC 11.95 10^3/uL (4.4-10.8)
--- NOTE | 2025-01-29 15:15 | DI.CT_ITS ---
Exam(s) CT CHEST PE ABD PELVIS W EXAM: CT CHEST PE ABD PELVIS W CLINICAL HISTORY: L pleuritic chest/flank pain, lipase elevated. TECHNIQUE: Imaging Protocol: Axial CT angiography was performed with multi- slice acquisition and multi-planar and/or 3D reconstructions. CONTRAST MATERIAL: Intravenous: Omnipaque 350 Contrast volume:100 ml Oral: None COMPARISON: CT,NM,TMT NM MPI REST STRESS GRP from 02/09/2021 FINDINGS: CHEST: PULMONARY ARTERIES: There are no intra-arterial filling defects to suggest the presence of acute pulmonary emboli. LUNGS: There is no evidence of pulmonary infarction.No infiltrates. No ominous pulmonary nodules. There are no pleural effusions. MEDIASTINUM: There is no hilar nor mediastinal adenopathy. The thyroid gland is grossly enlarged with enlargement of both lobes and the isthmus and containing nodules. There is slight narrowing of the trachea but no deviation of the trachea from the midline. CARDIAC: Heart size is normal. There is no pericardial effusion. There is no significant shift of the interventricular septum.Caliber of the thoracic aorta is within normal limits. There is no evidence of aortic dissection. OSSEOUS: There are no rib fractures nor vertebral fractures. Benign intraosseous hemangiomas noted in the L1 vertebral body and L5 vertebral body. No lytic nor blastic osseous lesions evident.. ABDOMEN: There is no ascites. LIVER: Hypodense implying steatosis. There are no focal hepatic lesions. There is minimal prominence of intrahepatic ducts most probably related to prior cholecystectomy. CBD diameter is upper normal. GALLBLADDER/BILIARY: Gallbladder surgically absent . PANCREAS: No evidence of pancreatic mass nor dilatation of the pancreatic duct. SPLEEN: Spleen is not enlarged. There are no intrasplenic lesions. Splenic and portal veins are patent. ADRENALS: There are no significant adrenal masses. KIDNEYS:No cysts evident. No calculi nor hydronephrosis. No solid renal masses. ABDOMINAL AORTA: Abdominal aorta is not enlarged. LYMPH NODES: There is no retroperitoneal or para-aortic adenopathy. ABDOMINAL WALL/GI: No evidence of significant anterior abdominal wall hernia. No bowel obstruction. PELVIS: LYMPH NODES: There is no intrapelvic nor inguinal adenopathy. GI: Mobile cecum which is located above the right iliac fossa. The appendix appears unremarkable as does the terminal ileum.There is a moderate amount of increased fecal material throughout the colon. There is no significant diverticular disease. URINARY BLADDER: No calculi nor masses evident REPRODUCTIVE: There is a fibroid measuring 4 by 4 cm noted at the fundal left side of the anteverted uterus. No abnormal adnexal masses and no free fluid in the pelvis. OSSEOUS: Benign intraosseous hemangiomas are noted in the L1 and L5 vertebral bodies. No fractures nor listhesis. Some degenerative disc disease at L2-3 level is noted. IMPRESSION: 1. No evidence of acute pulmonary emboli nor pulmonary infarction. No evidence of aortic dissection nor pericardial effusion. 2. No lung infiltrates nor pleural effusions. 3. Significantly enlarged thyroid gland which also contains nodules. 4. Gallbladder surgically absent. Mobile cecum. Appendix unremarkable. 5. Moderate increased amount of fecal material throughout the colon but no evidence of significant diverticular disease in the colon. 6. 4 cm uterine fibroid at the level the fundus left of center. No abnormal adnexal masses. 7. Hepatic steatosis noted. No discrete focal hepatic lesions evident. No ascites. Report called by myself to ER physician on 01/29/2025 at 4:30 p.m. RADIATION DOSE DELIVERED: 965.52mGy.cm Total DLP DATA REPOSITORY: All CT scans at this facility are submitted to the National Radiology Data Registry (NRDR) Dose Index Registry (DIR) with the [employer] ([employer]). RADIATION OPTIMIZATION: All CT scans at this facility use at least one of these dose optimization techniques: automated exposure control; mA and/or kV adjustment per patient size (includes targeted exams where dose is matched to clinical indication); or iterative reconstruction.
[2025-01-29 15:19] LABS: ALT 22 U/L (14-59); AST 12 U/L (15-37); Albumin 3.9 g/dL (3.4-5.0); Alkaline Phosphatase 78 U/L (46-116); Anion Gap 10.2 mmol/L (3-11); BUN 13 mg/dL (7-18); Bilirubin, Total 0.3 mg/dL (0.2-1.0); CO2 26.8 mmol/L (21.0-32.0); Calcium 8.9 mg/dL (8.5-10.1); Chloride 103 mmol/L (98-107); Estimated GFR 71.39 (mL/min/1.73m2); Glucose 246 mg/dL (74-106); Lipase 108 U/L (<78); Magnesium 1.9 mg/dL (1.8-2.4); Potassium 3.9 mmol/L (3.5-5.1); Sodium 140 mmol/L (136-145); Total Protein 7.5 g/dL (6.4-8.2)
[2025-01-29 15:20] LABS: Troponin I < 4 ng/L (<or=51)
[2025-01-29] MEDS: Normal Saline Flush 10 ML SYR IVP (15:52)
[2025-01-29] MEDS: Omnipaque 350 MG/ML 100 ML BTL IJ (15:53)
[2025-01-29] MEDS: Normal Saline - Diluent 50 ML VIAL IJ (15:53)
[2025-01-29 16:29] LABS: Troponin I < 4 ng/L (<or=51)
== END 2025-01-29 16:49 | disposition home or self-care (01) ==
PROVIDERS: Emergency Provider Emergency Medicine; PCP Family Medicine
DX: R07.9 Chest pain, unspecified (principal); M54.9 Dorsalgia, unspecified
CPT/HCPCS: 99285; 99284; 71275; 74177; 80053; 83690; 93005; 83735; 84484; 85025; 93010; J3490

== ENCOUNTER → 2025-04-05 00:20 | Outpatient (CLI) | payer MEDICARE, SELFPAY ==
--- NOTE | 2025-04-05 13:45 | DI.MAMMO_ITS ---
Exam(s) MAMMO SCREENING EXAM: MAMMO SCREENING CLINICAL HISTORY: screening,z12.39 TECHNIQUE: Bilateral full field digital CC and MLO mammographic images were obtained with 3D tomosynthesis and utilizing computer aided detection (CAD). COMPARISON: Comparison is made with prior examinations. FINDINGS: Masses/Architectural Distortion: No suspicious masses or areas of architectural distortion are present. Microcalcifications: No suspicious pleomorphic-type are seen. Skin Thickening/Nipple Retraction: None. IMPRESSION: 1. No significant interval change with no specific features of malignancy noted. 2. Unless there is more urgent need, screening mammography is recommended, as per [employer] guidelines. BI-RADS Category 1 - Negative Breast Density - Category B - There are scattered areas of fibroglandular density. Breast density Category C or D implies that the patient has dense breast tissue. Dense breast tissue can make it harder to find cancer on a mammogram. Dense breast tissue is also associated with an increased risk of breast cancer. This information about the result of the mammogram report was provided to the patient to raise their awareness. Use this report when you speak with the patient about their risks for breast cancer, which includes their family history. At that time, you may recommend additional screening tests (Ultrasound or MRI) as these tests may add significant information. A negative radiographic report should not delay biopsy if a dominant or clinically suspicious mass is present. Up to ten percent of cancers are not identified on mammography. A negative report may reinforce clinical impression. Adenosis and dense breasts may obscure an underlying neoplasm. False positive reports average 6 to 10%. Patient will receive a letter notifying them of these results.
== END ==
PROVIDERS: PCP Family Medicine; Visit Provider Obstetrics & Gynecology
DX: Z12.31 Encounter for screening mammogram for malignant neoplasm of breast (principal)
CPT/HCPCS: 77063; 77067